=== PATIENT | male | born 1950 | race Two or more races ===

== ENCOUNTER 2021-04-21 12:52 | Inpatient (IN) | payer MEDICARE, SELFPAY ==
[2021-04-21] VITALS (7 sets, daily range): BP systolic 116–159; BP diastolic 72–96; PULSE 84–109; RESP 14–19; TEMP 36.4–36.9; O2SAT 94–96; BMI 31.1
--- NOTE | ~2021-04-21 | CT_ITS ---
EXAMINATION: CT ANGIOGRAM HEAD CT ANGIOGRAM NECK CLINICAL INFORMATION: Left arm/leg weakness. COMPARISON: CTA neck from 02/03/2015. TECHNIQUE: Initial noncontrast pensionholder information clerk imaging of the head and neck was performed. Noncontrast head CT was also performed. Test bolus sequences followed by intravenous administration 99 mL of Omnipaque 350. Helical imaging was performed in the axial plane from the aortic arch to the skull vertex. Delayed postcontrast imaging of the head was also performed. The data was processed at the x ray technologist's workstation for generation of MIP sequences. Angled MIPs and volume rendered reformatted images were also generated at an offline 3D workstation. Stenoses are assessed in accordance with NASCET criteria unless otherwise indicated. This CT examination was performed using dose optimization techniques as appropriate, variously including the following: *Automated exposure control. *Adjustment of mA and/or kV according to patient size (this includes techniques or standardized protocols for targeted exams where dose is matched to indication/reason for exam; i.e. extremities or head). *Use of iterative reconstruction technique. DLP: 2672 mGy-cm FINDINGS: CT Head: There is no evidence of acute intracranial hemorrhage. There are regions of chronic appearing encephalomalacia in the high left frontal and parietal lobes with apparent volume loss. There are also regions of encephalomalacia within the high right frontal and parietal lobes with left apparent volume loss. Findings are superimposed on scattered hypoattenuation in the periventricular and deep white matter are consistent with moderate microangiopathy. Proportional prominence of the ventricles and sulcal spaces. No evidence for obstructive hydrocephalus. No abnormal mass effect or midline shift. No extra-axial fluid collections. No pathologic intra-axial enhancement. No acute soft tissue or osseous abnormalities. Mild mucosal thickening of the paranasal sinuses. Moderate leftward nasal septal deviation. The mastoid air cells and middle ear cavities are clear. CT Neck: The thyroid gland and remaining cervical soft tissues are within normal limits. Straightening of the normal cervical lordosis. Advanced degenerative disc disease at C5-C6. Moderate degenerative disc disease at C4-C5 and C6-C7. Facet and uncovertebral joint arthropathy leads to osseous encroachment on the neural foramina from C3-C7. CT Upper Chest: Centrilobular emphysema. Coronary artery calcifications. Neck CTA: Aortic Arch: Normal contour and caliber with moderate calcific atherosclerotic disease. Classic 3 vessel branching pattern of the aortic arch. Great Vessel Origins: No significant stenosis of the branch origins. Right Common Carotid Artery: No focal stenosis or occlusion. Cervical Right Internal Carotid Artery: Eccentric mixed lipid rich and calcific atherosclerotic disease of the carotid bulb and proximal internal carotid artery causes 55% stenosis of the origin of the right ICA (progressed compared to 2015). Left Common Carotid Artery: No focal stenosis or occlusion. Cervical Left Internal Carotid Artery: Mixed lipid rich and calcific atherosclerotic disease leads to complete occlusion of the origin of the left ICA. Cervical Right Vertebral Artery: Co-dominant. No focal stenosis or occlusion. Cervical Left Vertebral Artery: Co-dominant. No focal stenosis or occlusion. Brain CTA: Intracranial Internal Carotid Arteries: The petrous, cavernous, and supraclinoid segments of the left ICA remain nonopacified. There is partial reconstitution of the supraclinoid segment of the left ICA with retrograde opacification of the left-sided ophthalmic artery. Moderate calcific atherosclerotic disease of the right ICA without occlusion or flow-limiting stenosis. Right Anterior Cerebral Artery: Normal A1 segment. Normal opacification of the distal RENA segments. Left Anterior Cerebral Artery: Normal A1 segment. Normal opacification of the distal RENA segments. Anterior Communicating Artery: Osseous continuation of the anterior communicating artery. Otherwise, normal in appearance. Right Middle Cerebral Artery: Normal M1 segment of the MCA without focal stenosis or occlusion. Normal arborization of the distal segments. Left Middle Cerebral Artery: Normal M1 segment of the MCA without focal stenosis or occlusion. Normal arborization of the distal segments. Right Vertebral Artery: Normal V4 segment. The posterior inferior cerebellar artery is not well opacified; however, there is no CT evidence of acute occlusion. Left Vertebral Artery: Normal V4 segment. Normal opacification of the proximal segments of the posterior inferior cerebellar artery. Basilar Artery: Normal without focal stenosis or occlusion. Normal appearance of the proximal superior cerebellar arteries. Right Posterior Cerebral Artery: Normal P1 segment. Normal opacification of the distal [employer] segments. Left Posterior Cerebral Artery: Normal P1 segment. Normal opacification of the distal [employer] segments. Normal opacification of the superior sagittal, straight, transverse, and sigmoid sinuses. CT/CT angio head neck IMPRESSION: 1. No evidence of acute intracranial hemorrhage. 2. Age-indeterminate small regions of encephalomalacia in the high right frontal and parietal lobes. Chronic appearing regions of encephalomalacia in the left frontal and parietal lobes. 3. Complete occlusion of a right ICA is new compared to 2015 but otherwise age indeterminate. 4. Eccentric mixed lipid rich and calcific atherosclerotic disease causes 55% stenosis of the origin of the left ICA. 5. CTA of the head without evidence of additional proximal occlusion or flow-limiting stenosis. This critical result was discussed with JACQUIE Ramires at 16:49 on 04/21/2021 and it was ascertained that the content and urgency of the report was understood at the time of direct communication.
--- NOTE | ~2021-04-21 | CT_ITS ---
EXAMINATION: CT HEAD WITHOUT CONTRAST CLINICAL INFORMATION: COMPARISON: None TECHNIQUE: Contiguous axial imaging was performed from the skull base to vertex without intravenous administration of contrast. This CT examination was performed using dose optimization techniques as appropriate, variously including the following: *Automated exposure control *Adjustment of mA and/or kV according to patient size (this includes techniques or standardized protocols for targeted exams where dose is matched to indication/reason for exam; i.e. extremities or head) *Use of iterative reconstruction technique DLP: mGy-cm FINDINGS: There is no evidence of acute intracranial hemorrhage or territorial infarction. No abnormal mass effect or midline shift is seen. Rothman to white matter differentiation is well preserved. No extra-axial fluid collections are identified. The ventricles are normal in size. There is no abnormal attenuation within the brain parenchyma. The osseous structures and soft tissues are normal. The mastoid air cells and visualized portions of the paranasal sinuses are well aerated. CT/CT head/brain wo con IMPRESSION: No acute intracranial pathology.
[2021-04-21 13:08] LABS: Glucose, Whole Blood 146 mg/dL (60-115)
--- NOTE | 2021-04-21 13:17 | PC.NURSE ---
pt a&ox3, vss, cardiac cath technician applied, labs drawn, [facility] in room w provider. pt reports possible stroke last night between [id number], tremors, difficulty walking, now presenting with left sided weakness and some numbness in his left hand.
--- NOTE | 2021-04-21 13:25 | ECG_ITS ---
Test Reason : stroke Blood Pressure : / mmHG Vent. Rate : 109 BPM Atrial Rate : 109 BPM P-R Int : 172 ms QRS Dur : 090 ms QT Int : 324 ms P-R-T Axes : 036 -50 032 degrees QTc Int : 436 ms Sinus tachycardia Left anterior fascicular block Cannot rule out Inferior infarct (masked by fascicular block?) , age undetermined Abnormal ECG No previous ECGs available Referred By: Vanessa Juarez Electronically Signed By:Jose Enrique Izquierdo
--- NOTE | 2021-04-21 13:36 | ED_ITS ---
HPI - Neuro Symptoms/Deficit General Chief Complaint: Stroke Stated Complaint: ?stroke Time Seen by Provider: 04/21/21 12:59 Source: patient and park interpreter Mode of arrival: ambulatory Limitations: language barrier History of Present Illness HPI Narrative: 71yo male with history of retinal artery occlusion 4 years ago not compliant with aspirin (w/ residual visual loss) here with complaints of left sided weakness, difficulty with ambulating since 10pm last night. Patient tells me last evening he was laying in bed around 10pm and felt that his right arm moved involuntary on 4 different occasions each lasting several seconds in a 5 minute span. He got up to take tylenol and when he was walking he noticed his gait was unsteady and he felt that his left arm was heavy especially when he reached for a tylenol bottle. In his left hand he was experiencing tingling. he went to bed. This morning he woke up and was speaking to a friend and told them about his symptoms since the evening before. His friend picked him up and brought him in here to be seen. Patient denies falls/injuries. Patient denies headache, dizziness, slurred speech, vision changes, vomiting. Today he feels that his right arm is normal and his left arm feels heavy and he has some tingling in the hand. His left leg feels normal for him with no reports of sensation change. Related Data Home Medications Medication Instructions Recorded Confirmed No Known Home Meds 04/21/21 04/21/21 Allergies Allergy/AdvReac Type Severity Reaction Status Date / Time No Known Allergies Allergy Verified 04/21/21 12:59 Review of Systems Review of Systems: Yes all other systems are reviewed and are negative Constitutional: Constitutional: Reports no additional constitutional complaints, Denies body ache(s), Denies chills, Denies fever(s), Denies headache(s) and Reports weakness Eyes: Eyes: Reports no additional eye complaints and Denies change in vision ENT: Reports system reviewed and no additional complaints, except as docu mented, Denies dizziness, Denies headache(s), Denies nasal congestion, Denies nasal discharge and Denies neck pain Cardiovascular: Cardiovascular: Reports no additional cardiovascular complaints, Denies chest pain, Denies leg edema and Denies dyspnea Respiratory: Respiratory: Reports no additional respiratory complaints, Denies cough and Denies dyspnea Gastrointestinal: Gastrointestinal: Reports no additional gastrointestinal complaints, Denies abdominal pain, Denies diarrhea, Denies nausea and Denies vomiting Genitourinary: Genitourinary: Denies urinary incontinence Musculoskeletal: Musculoskeletal: Reports no additional musculoskeletal complaints, Denies back pain, Denies arthralgias, Denies joint swelling, Denies neck pain, Denies numbness and Denies tingling Integumentary/Breasts: Skin/Breast: Reports system reviewed and no additional complaints, except as docu and Denies rash Neurologic: Reports system reviewed and no additional complaints, except as documented, Denies Abnormal speech present, Denies dizziness, Denies headach e(s), Denies numbness, Reports Sensory deficit (Neuro), Denies tingling and Reports weakness PMFSH Past Medical History Attestation statement: The following information was validated with the patient. Source: old records reviewed and nursing notes reviewed Medical History Retinal artery branch occlusion of right eye Social History Social History Alcohol intake: current Alcohol intake frequency: 0-2 drinks per day Alcohol type: wine Patient Tobacco Use Status: Never used Tobacco Use of substances other than those prescribed or required for medical reasons: No Advance Directives: No Advance Directives Information Provided: No Physical Exam Vital Signs: Vital Signs: Last Vital Signs Temp 97.5 F 04/21/21 13:34 Pulse 109 H 04/21/21 13:34 Resp 15 04/21/21 13:34 BP 123/78 04/21/21 13:34 Pulse Ox 94 04/21/21 13:34 BMI result Body Mass Index 31.1 Const: General: cooperative, healthy appearing, comfortable and no acute distr ess Orientation/consciousness: patient oriented x3 Limitations: no limitations HENMT: Head: Yes normal to inspection Ears: hearing grossly normal bilaterally and TM's normal bilaterally General nose exam: Normal external nose present Face and sinus: Yes normal facial exam Mouth: Normal oral and palatal mucosa present Throat: Yes posterior oropharynx normal, Yes tonsils normal and Yes uvula midline Eyes: General: appearance normal, both eyes and all related structures Pupils: Equal, round and reactive pupils present Neck: Neck: Yes normal visual inspection, Yes full ROM, Yes no lymphadenopathy and Yes no meningeal signs Chest: Chest palpation & inspection: normal inspection of the chest Resp: Effort & Inspection: normal respiratory effort Auscultation: clear to auscultation bilaterally Cardio: Rate: regular rate Rhythm: regular rhythm Peripheral pulses: Peripheral pulses 2+ throughout GI: Inspection: Yes normal to inspection Palpation (GI): Soft to palpation and nontender Auscultation: normal bowel sounds Back/Spine/Pelvis: Thoracic/Lumbar Spine: thoracic and lumbar spine normal to inspection Skin: General skin exam: no rashes or lesions noted Neuro: Other: LLE 3/5 strength LLE 4/5 strength RUE 5/5 strength RLE 5/5 strength -patient has difficulty performing finger to nose, heel to zhang testing on left side. General: patient oriented x3, no meningeal signs and normal sensation to monofilament Cranial nerves: Yes CN's II-XII intact bilaterally, Yes Equal, round and reactive pupils present, Yes Bilaterally intact EOM present, Yes Nystagmus not present, Yes Normal facial strength present and Yes Midline tongue present Cognition (Neuro): normal cognition Speech: No Abnormal speech present Sensory Exam: Sensory deficit (Neuro) Extrem: General: Yes normal to inspection Course Course Course Narrative: [id number] I was at the patient bedside interviewing him with the [place] drea juan. He is not a good historian and his timeline changes several times. I explained to the patient that obtaining a clear timeline with stroke is critical as it determines when TPA is an option. Patient assures me all his symptoms began at 10pm last evening. Reevaluation(s) Reevaluation #1: Call from [facility] L ICA occluded but appears chronic in nature R ICA 55-60% occluded with ?infarcts in R frontal and R parietal acute vs subacute Will need admission. Call out to discuss with vascular. Time: 16:50 Reevaluation #2: discussed with Dr. Monique from vascular. recommended dual platelet agent. at this time no further intervention. Call out to Medicine to discuss for admission Time: 17:15 Reevaluation #3: discussed with Dr Bonilla who accepted patient Time: 17:54 MDM - Neuro Symptoms/Deficit MDM Narrative Medical decision making narrative: 71yo male with new onset left sided weakness sensation change left hand since 10pm last evening. NIH 4. Not TPA candidate d/t onset of symptoms. Will check CT head, CTA to r/o LVO, labs, EKG, POC. Stroke cooridinator notified. ASA ordered. Medical Records Attestation: I reviewed the patient's medical records. Lab Data Attestation: I reviewed the patient's lab results. Result diagrams: 04/21/21 13:32 04/21/21 13:32 Labs: Lab Results 04/21/21 04/21/21 04/21/21 Range/Units 13:04 13:32 13:32 WBC 8.2 (4.8-10.8) X10*3/uL RBC 5.52 (4.60-5.80) X10*6/uL Hgb 16.8 (14.0-18.0) g/dl Hct 49.6 (42.0-52.0) % MCV 89.9 (80.0-98.0) fL MCH 30.4 (27.0-33.0) pg MCHC 33.9 (31.0-36.0) g/dl RDW 11.9 (11.0-16.0) % Plt Count 192 (160-400) X10*3/uL MPV 10.5 (9.4-12.4) fL Immature Gran % (Auto) 0.2 (0.0-0.4) % Neut % (Auto) 69.2 (45-73) % Lymph % (Auto) 22.0 (20-40) % Williams % (Auto) 7.5 (2-11) % Eos % (Auto) 1.0 (0-4) % Baso % (Auto) 0.1 (0-2) % Lymph # (Auto) 1.8 (1.2-4.9) X10*3/uL Williams # (Auto) 0.6 (0.1-1.2) X10*3/uL Eos # (Auto) 0.1 (0.0-0.4) X10*3/uL Baso # (Auto) 0.0 (0.0-0.2) X10*3/uL Abs Immat Gran (auto) 0.02 (0.00-0.03) X10*3/uL Absolute Neuts (auto) 5.7 (2.0-8.3) x10*3/uL Absolute Nucleated RBC 0.000 (0.0-0.012) X10*3/uL Nucleated RBC % (auto) 0.0 (0.0-0.2) /100WBC PT 11.4 (9.9-13.0) SEC INR 1.0 (0.9-1.1) APTT 33.5 (24.1-38.0) SEC Sodium (135-145) mmol/L Potassium (3.3-5.1) mmol/L Chloride (96-108) mmol/L Carbon Dioxide (22-29) mmol/L Anion Gap (12-20) BUN (9-16) mg/dL Creatinine (0.5-1.4) mg/dL Estim Creat Clear Calc Estimated GFR POC Glucose 146 H (60-115) mg/dL Random Glucose (60-115) mg/dL Calcium (8.4-10.2) mg/dL Phosphorus (2.7-4.5) mg/dL Magnesium (1.6-2.6) mg/dL Total Creatine Kinase (38-174) U/L Troponin I High Sens (<3.5-35.0) ng/L TSH (0.32-4.0) uIU/mL Urine Color Urine Appearance Urine pH (5.0-8.0) Ur Specific [place] (1.005-1.025) Urine Protein (NEG-TRACE) MG/DL Urine Glucose (UA) (NEG) MG/DL Urine Ketones (NEG) MG/DL Urine Blood (NEG) Urine Nitrite (NEG) Ur Leukocyte Esterase (NEG) Ethyl Alcohol mg/dL COVID-19 (CATHIE) (Negative) COVID-19 Clin Com 04/21/21 04/21/21 04/21/21 Range/Units 13:32 13:32 13:32 WBC (4.8-10.8) X10*3/uL RBC (4.60-5.80) X10*6/uL Hgb (14.0-18.0) g/dl Hct (42.0-52.0) % MCV (80.0-98.0) fL MCH (27.0-33.0) pg MCHC (31.0-36.0) g/dl RDW (11.0-16.0) % Plt Count (160-400) X10*3/uL MPV (9.4-12.4) fL Immature Gran % (Auto) (0.0-0.4) % Neut % (Auto) (45-73) % Lymph % (Auto) (20-40) % Williams % (Auto) (2-11) % Eos % (Auto) (0-4) % Baso % (Auto) (0-2) % Lymph # (Auto) (1.2-4.9) X10*3/uL Williams # (Auto) (0.1-1.2) X10*3/uL Eos # (Auto) (0.0-0.4) X10*3/uL Baso # (Auto) (0.0-0.2) X10*3/uL Abs Immat Gran (auto) (0.00-0.03) X10*3/uL Absolute Neuts (auto) (2.0-8.3) x10*3/uL Absolute Nucleated RBC (0.0-0.012) X10*3/uL Nucleated RBC % (auto) (0.0-0.2) /100WBC PT (9.9-13.0) SEC INR (0.9-1.1) APTT (24.1-38.0) SEC Sodium 140 (135-145) mmol/L Potassium 3.9 (3.3-5.1) mmol/L Chloride 105 (96-108) mmol/L Carbon Dioxide 25 (22-29) mmol/L Anion Gap 14 (12-20) BUN 16 (9-16) mg/dL Creatinine 0.87 (0.5-1.4) mg/dL Estim Creat Clear Calc 90.1 Estimated GFR > 60 POC Glucose (60-115) mg/dL Random Glucose 141 H (60-115) mg/dL Calcium 9.8 (8.4-10.2) mg/dL Phosphorus 3.4 (2.7-4.5) mg/dL Magnesium 1.9 (1.6-2.6) mg/dL Total Creatine Kinase 184 H (38-174) U/L Troponin I High Sens < 3.5 (<3.5-35.0) ng/L TSH 1.13 (0.32-4.0) uIU/mL Urine Color Urine Appearance Urine pH (5.0-8.0) Ur Specific [place] (1.005-1.025) Urine Protein (NEG-TRACE) MG/DL Urine Glucose (UA) (NEG) MG/DL Urine Ketones (NEG) MG/DL Urine Blood (NEG) Urine Nitrite (NEG) Ur Leukocyte Esterase (NEG) Ethyl Alcohol mg/dL COVID-19 (CATHIE) Negative (Negative) COVID-19 Clin Com See Note 04/21/21 04/21/21 Range/Units 13:48 14:38 WBC (4.8-10.8) X10*3/uL RBC (4.60-5.80) X10*6/uL Hgb (14.0-18.0) g/dl Hct (42.0-52.0) % MCV (80.0-98.0) fL MCH (27.0-33.0) pg MCHC (31.0-36.0) g/dl RDW (11.0-16.0) % Plt Count (160-400) X10*3/uL MPV (9.4-12.4) fL Immature Gran % (Auto) (0.0-0.4) % Neut % (Auto) (45-73) % Lymph % (Auto) (20-40) % Williams % (Auto) (2-11) % Eos % (Auto) (0-4) % Baso % (Auto) (0-2) % Lymph # (Auto) (1.2-4.9) X10*3/uL Williams # (Auto) (0.1-1.2) X10*3/uL Eos # (Auto) (0.0-0.4) X10*3/uL Baso # (Auto) (0.0-0.2) X10*3/uL Abs Immat Gran (auto) (0.00-0.03) X10*3/uL Absolute Neuts (auto) (2.0-8.3) x10*3/uL Absolute Nucleated RBC (0.0-0.012) X10*3/uL Nucleated RBC % (auto) (0.0-0.2) /100WBC PT (9.9-13.0) SEC INR (0.9-1.1) APTT (24.1-38.0) SEC Sodium (135-145) mmol/L Potassium (3.3-5.1) mmol/L Chloride (96-108) mmol/L Carbon Dioxide (22-29) mmol/L Anion Gap (12-20) BUN (9-16) mg/dL Creatinine (0.5-1.4) mg/dL Estim Creat Clear Calc Estimated GFR POC Glucose (60-115) mg/dL Random Glucose (60-115) mg/dL Calcium (8.4-10.2) mg/dL Phosphorus (2.7-4.5) mg/dL Magnesium (1.6-2.6) mg/dL Total Creatine Kinase (38-174) U/L Troponin I High Sens (<3.5-35.0) ng/L TSH (0.32-4.0) uIU/mL Urine Color YELLOW Urine Appearance CLEAR Urine pH 6.0 (5.0-8.0) Ur Specific [place] 1.010 (1.005-1.025) Urine Protein NEG (NEG-TRACE) MG/DL Urine Glucose (UA) NEG (NEG) MG/DL Urine Ketones NEG (NEG) MG/DL Urine Blood NEG (NEG) Urine Nitrite NEG (NEG) Ur Leukocyte Esterase NEG (NEG) Ethyl Alcohol < 10 mg/dL COVID-19 (CATHIE) (Negative) COVID-19 Clin Com Imaging Data ct head/neck: Attestation: I personally reviewed and interpreted this imaging study as follows: Radiologist's impression: FINDINGS: CT Head: There is no evidence of acute intracranial hemorrhage. There are regions of chronic appearing encephalomalacia in the high left frontal and parietal lobes with apparent volume loss. There are also regions of encephalomalacia within the high right frontal and parietal lobes with left apparent volume loss. Findings are superimposed on scattered hypoattenuation in the periventricular and deep white matter are consistent with moderate microangiopathy. Proportional prominence of the ventricles and sulcal spaces. No evidence for obstructive hydrocephalus. No abnormal mass effect or midline shift. No extra-axial fluid collections. No pathologic intra-axial enhancement. No acute soft tissue or osseous abnormalities. Mild mucosal thickening of the paranasal sinuses. Moderate leftward nasal septal deviation. The mastoid air cells and middle ear cavities are clear. CT Neck: The thyroid gland and remaining cervical soft tissues are within normal limits. Straightening of the normal cervical lordosis. Advanced degenerative disc disease at C5-C6. Moderate degenerative disc disease at C4-C5 and C6-C7. Facet and uncovertebral joint arthropathy leads to osseous encroachment on the neural foramina from C3-C7. CT Upper Chest: Centrilobular emphysema. Coronary artery calcifications. Neck CTA: Aortic Arch: Normal contour and caliber with moderate calcific atherosclerotic disease. Classic 3 vessel branching pattern of the aortic arch. Great Vessel Origins: No significant stenosis of the branch origins. Right Common Carotid Artery: No focal stenosis or occlusion. Cervical Right Internal Carotid Artery: Eccentric mixed lipid rich and calcific atherosclerotic disease of the carotid bulb and proximal internal carotid artery causes 55% stenosis of the origin of the right ICA (progressed compared to 2015). Left Common Carotid Artery: No focal stenosis or occlusion. Cervical Left Internal Carotid Artery: Mixed lipid rich and calcific atherosclerotic disease leads to complete occlusion of the origin of the left ICA. Cervical Right Vertebral Artery: Co-dominant. No focal stenosis or occlusion. Cervical Left Vertebral Artery: Co-dominant. No focal stenosis or occlusion. Brain CTA: Intracranial Internal Carotid Arteries: The petrous, cavernous, and supraclinoid segments of the left ICA remain nonopacified. There is partial reconstitution of the supraclinoid segment of the left ICA with retrograde opacification of the left-sided ophthalmic artery. Moderate calcific atherosclerotic disease of the right ICA without occlusion or flow-limiting stenosis. Right Anterior Cerebral Artery: Normal A1 segment. Normal opacification of the distal RENA segments. Left Anterior Cerebral Artery: Normal A1 segment. Normal opacification of the distal RENA segments. Anterior Communicating Artery: Osseous continuation of the anterior communicating artery. Otherwise, normal in appearance. Right Middle Cerebral Artery: Normal M1 segment of the MCA without focal stenosis or occlusion. Normal arborization of the distal segments. Left Middle Cerebral Artery: Normal M1 segment of the MCA without focal stenosis or occlusion. Normal arborization of the distal segments. Right Vertebral Artery: Normal V4 segment. The posterior inferior cerebellar artery is not well opacified; however, there is no CT evidence of acute occlusion. Left Vertebral Artery: Normal V4 segment. Normal opacification of the proximal segments of the posterior inferior cerebellar artery. Basilar Artery: Normal without focal stenosis or occlusion. Normal appearance of the proximal superior cerebellar arteries. Right Posterior Cerebral Artery: Normal P1 segment. Normal opacification of the distal CHIEF MAINTENANCE SUPERVISOR segments. Left Posterior Cerebral Artery: Normal P1 segment. Normal opacification of the distal CHIEF MAINTENANCE SUPERVISOR segments. Normal opacification of the superior sagittal, straight, transverse, and sigmoid sinuses. ECG Data Attestation: I personally reviewed and interpreted this ECG as follows: ECG interpretation date: 04/21/21 ECG interpretation time: 13:09 Interpretation: sinus tachycardia with a rate of 109, normal ND, normal QRS, normal QT NIH Stroke Scale Internal: Initial- Upon Arrival Time: 12:59 Level of Consciousness: Alert Level of Consciousness Questions: Answers both questions correctly Level of Consciousness Commands: Performs both tasks correctly Best Gaze: Normal Visual: No visual loss Facial Palsy: Normal Motor Arm (Right): No drift Motor Arm (Left): Drift Motor Leg (Right): No drift Motor Leg (Left): Drift Limb Ataxia: Present in one limb Sensory: Mild to moderate sensory loss Best Language: No aphasia Dysarthia: Normal Extinction and Inattention: No abnormality Score: 4 Discharge Plan Discharge Clinical Impression: Cerebrovascular accident Patient Disposition: Admitted As Inpatient
[2021-04-21 13:53] LABS: MANUAL DIFF FLAG NO
[2021-04-21 13:56] LABS: Basophils Percent Auto 0.1 % (0-2); Eosinophils Absolute Auto 0.1 X10*3/uL (0.0-0.4); Hematocrit 49.6 % (42.0-52.0); Hemoglobin 16.8 g/dl (14.0-18.0); Imm Gran Abs Auto 0.02 X10*3/uL (0.00-0.03); Imm Gran Pct Auto 0.2 % (0.0-0.4); Lymphocytes Absolute Auto 1.8 X10*3/uL (1.2-4.9); Mean Corpuscular HGB Conc 33.9 g/dl (31.0-36.0); Mean Corpuscular Hemoglobin 30.4 pg (27.0-33.0); Mean Corpuscular Volume 89.9 fL (80.0-98.0); Mean Platelet Volume 10.5 fL (9.4-12.4); Monocytes Absolute Auto 0.6 X10*3/uL (0.1-1.2); Monocytes Percent Auto 7.5 % (2-11); Neutrophils Absolute Auto 5.7 x10*3/uL (2.0-8.3); Neutrophils Percent Auto 69.2 % (45-73); Platelet Count 192 X10*3/uL (160-400); Red Blood Count 5.52 X10*6/uL (4.60-5.80); Red Cell Distribution Width 11.9 % (11.0-16.0); White Blood Count 8.2 X10*3/uL (4.8-10.8)
[2021-04-21 14:01] LABS: Prothrombin Time 11.4 SEC (9.9-13.0)
[2021-04-21 14:03] LABS: Partial Thromboplastin Time 33.5 SEC (24.1-38.0)
[2021-04-21 14:13] LABS: Anion Gap 14 (12-20); Blood Urea Nitrogen 16 mg/dL (9-16); Calcium 9.8 mg/dL (8.4-10.2); Carbon Dioxide 25 mmol/L (22-29); Chloride 105 mmol/L (96-108); Creatinine Clr Calc Pharmacy 90.1; Estimated Glomerular Filt Rate > 60; Glucose Random 141 mg/dL (60-115); Magnesium 1.9 mg/dL (1.6-2.6); Phosphorus 3.4 mg/dL (2.7-4.5); Potassium 3.9 mmol/L (3.3-5.1); Sodium 140 mmol/L (135-145)
[2021-04-21 14:16] LABS: COVID-19 Test Negative (Negative); IDNOW Serial# 9DD0AD1C
[2021-04-21 14:17] LABS: Ethanol < 10 mg/dL
[2021-04-21 14:20] LABS: Troponin-I High Sensitivity < 3.5 ng/L (<3.5-35.0)
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
[2021-04-21 14:34] LABS: Thyroid Stimulating Hormone 1.13 uIU/mL (0.32-4.0)
[2021-04-21 14:38] LABS: Stroke Lab Use COMPLETE
--- NOTE | 2021-04-21 14:45 | PC.NURSE ---
pt passed swallow eval
[2021-04-21 14:47] LABS: Appearance Urine CLEAR; Color Urine YELLOW; Glucose Urine UA NEG (NEG); Leukocyte Esterase Urine NEG (NEG); Nitrite Urine NEG (NEG); Urine Blood NEG (NEG); Urine Ketones NEG (NEG); Urine Protein NEG (NEG-TRACE)
--- NOTE | 2021-04-21 15:15 | PC.NURSE ---
pt to radiology
--- NOTE | 2021-04-21 15:41 | PC.NURSE ---
pt returned from radiology
[2021-04-21] MEDS: iohexoL 350 MG/ML 100 ML INFUS..BTL IV (15:52)
--- NOTE | 2021-04-21 16:21 | PHA.MEDREC ---
Pharmacy Consult ? Medication Reconciliation Pharmacy has completed the medication reconciliation.
[2021-04-21] MEDS: Aspirin 325 MG TABLET PO (18:07)
--- NOTE | 2021-04-21 18:12 | PC.NURSE ---
patient a&ox3, vss, cardiac monitor technician nsr, hospitalist in room evaluating the patient, during providers neuro exam it was noted that the left upper arm drift had resolved as did the weakness, pt medicated per order, call obrien within reach, will continue to monitor
--- NOTE | 2021-04-21 18:19 | P.HPHOSP_ITS ---
History of Present Illness Date of Service: 04/21/21 Attending physician on admission: Lito Bonilla Chief Complaint: left-sided weakness 71-year-old gentleman with past medical history significant for right retinal artery occlusion 4 years ago not compliant with aspirin, presented to [facility] due to left-sided weakness since 22:00 last night, patient is awake historian but according to him last evening while in bed at 10pm he noted his right arm is moving involuntarily that occurred 3-4 times, then he got up and noted that his gait is unsteady and he felt that his left arm is heavy and tingling while he was reaching for a Tylenol bottle, then he went to bed and woke up this morning call his friend and told him about his symptoms, therefore friend brought him to [facility] patient also complained of associated headache, but denies any recent bout of fall head injuries, no fever no chills no speech impairment no patient impairment no nausea no vomiting, in the emergency room he was noted to have left arm pronator drift and decreased left lower extremity strength therefore CT head and neck was obtained that showed left ICA complete occlusion, right ICA 55% stenosis there was encephalomalacia age indeterminate of right frontal and parietal lobe, chronic encephalomalacia of left frontal and parietal lobe, patient received aspirin in the ED, he passed swallow eval now being admitted to [facility] with left-sided weakness due to acute CVA. Review of Systems Review of Systems: General headache, no dizziness no fever chills. CVS no chest pain, no palpitation. Respiratory no cough, no shortness of breath Gastrointestinal no nausea no vomiting, no abdominal pain skin no rash Yes all other systems are reviewed and are negative [facility] Medical History Retinal artery branch occlusion of right eye Pertinent family history: no family history of acute CVA Social History Alcohol intake: current Alcohol intake frequency: 0-2 drinks per day Alcohol type: wine Patient Tobacco Use Status: Never used Tobacco Use of substances other than those prescribed or required for medical reasons: No Advance Directives: No Advance Directives Information Provided: No Meds Allergies Allergy/AdvReac Type Severity Reaction Status Date / Time No Known Allergies Allergy Verified 04/21/21 12:59 Active Medications: Current Medications Acetaminophen (Acetaminophen 325 Mg Tablet) 650 mg PO Q6H PRN PRN Reason: Pain, Mild (Pain Scale 1-3) Enoxaparin Sodium (Enoxaparin Sodium 40 Mg/0.4 Ml Syringe) 40 mg SUBCUT Q24H [facility] Ondansetron HCl (Ondansetron Hcl 4 Mg/2 Ml Vial) 4 mg IVPUSH Q8H PRN PRN Reason: Nausea and Vomiting Pharmacy Consult (Consult Rx Perform Med Rec) 1 each MISCELLANE ONCE PRN PRN Reason: Consult order Sodium Chloride (0.9 % Sodium Chloride Flush 3 Ml Syringe) 3 ml IVFLUSH QSHIFT [facility] Home Medications Medication Instructions Recorded Confirmed Last Taken Type No Known Home Meds 04/21/21 04/21/21 Unknown History Physical Exam Vital Signs and Narrative: Vital Signs: Last Vital Signs Temp 98.5 F 04/21/21 18:00 Pulse 85 04/21/21 18:00 Resp 18 04/21/21 18:00 BP 140/95 H 04/21/21 18:00 Pulse Ox 95 04/21/21 18:00 BMI result Body Mass Index 31.1 Const: Other: General awake alert x3, no acute distress. Neck supple no JVD. CVS regular rate rhythm, Respiratory lungs clear to auscultation, no respiratory distress Gastrointestinal abdomen soft, nontender, bowel sounds audible Extremities no edema. Neuro alert oriented x3 speech clear, face symmetrical, tongue midline, mild left pronator drift mild left-sided upper and lower extremity weakness 4/5, gait not assessed Skin no rash psych appropriate affect Results Labs CBC and Chem 7: 04/21/21 13:32 04/21/21 13:32 Labs: Laboratory Results - last 24 hr 04/21/21 04/21/21 04/21/21 13:04 13:32 13:32 MCV 89.9 MCH 30.4 MCHC 33.9 RDW 11.9 Plt Count 192 MPV 10.5 Immature Gran % (Auto) 0.2 Neut % (Auto) 69.2 Lymph % (Auto) 22.0 [place] % (Auto) 7.5 Eos % (Auto) 1.0 Baso % (Auto) 0.1 Lymph # (Auto) 1.8 [place] # (Auto) 0.6 Eos # (Auto) 0.1 Baso # (Auto) 0.0 Abs Immat Gran (auto) 0.02 Absolute Neuts (auto) 5.7 Absolute Nucleated RBC 0.000 Nucleated RBC % (auto) 0.0 PT 11.4 INR 1.0 APTT 33.5 Anion Gap Estim Creat Clear Calc Estimated GFR POC Glucose 146 H Random Glucose Calcium Phosphorus Magnesium Total Creatine Kinase TSH Urine Color Urine Appearance Urine pH Ur Specific [place] Urine Protein Urine Glucose (UA) Urine Ketones Urine Blood Urine Nitrite Ur Leukocyte Esterase Ethyl Alcohol COVID-19 (CATHIE) COVID-19 Clin Com 04/21/21 04/21/21 04/21/21 13:32 13:32 13:48 MCV MCH MCHC RDW Plt Count MPV Immature Gran % (Auto) Neut % (Auto) Lymph % (Auto) [place] % (Auto) Eos % (Auto) Baso % (Auto) Lymph # (Auto) [place] # (Auto) Eos # (Auto) Baso # (Auto) Abs Immat Gran (auto) Absolute Neuts (auto) Absolute Nucleated RBC Nucleated RBC % (auto) PT INR APTT Anion Gap 14 Estim Creat Clear Calc 90.1 Estimated GFR > 60 POC Glucose Random Glucose 141 H Calcium 9.8 Phosphorus 3.4 Magnesium 1.9 Total Creatine Kinase 184 H TSH 1.13 Urine Color Urine Appearance Urine pH Ur Specific [place] Urine Protein Urine Glucose (UA) Urine Ketones Urine Blood Urine Nitrite Ur Leukocyte Esterase Ethyl Alcohol < 10 COVID-19 (CATHIE) Negative COVID-19 Clin Com See Note 04/21/21 14:38 MCV MCH MCHC RDW Plt Count MPV Immature Gran % (Auto) Neut % (Auto) Lymph % (Auto) [place] % (Auto) Eos % (Auto) Baso % (Auto) Lymph # (Auto) [place] # (Auto) Eos # (Auto) Baso # (Auto) Abs Immat Gran (auto) Absolute Neuts (auto) Absolute Nucleated RBC Nucleated RBC % (auto) PT INR APTT Anion Gap Estim Creat Clear Calc Estimated GFR POC Glucose Random Glucose Calcium Phosphorus Magnesium Total Creatine Kinase TSH Urine Color YELLOW Urine Appearance CLEAR Urine pH 6.0 Ur Specific [place] 1.010 Urine Protein NEG Urine Glucose (UA) NEG Urine Ketones NEG Urine Blood NEG Urine Nitrite NEG Ur Leukocyte Esterase NEG Ethyl Alcohol COVID-19 (CATHIE) COVID-19 Clin Com Imaging Radiologist's Impressions: Impressions Head/Neck CTA 04/21/21 15:55 IMPRESSION: 1. No evidence of acute intracranial hemorrhage. 2. Age-indeterminate small regions of encephalomalacia in the high right frontal and parietal lobes. Chronic appearing regions of encephalomalacia in the left frontal and parietal lobes. 3. Complete occlusion of a right ICA is new compared to 2015 but otherwise age indeterminate. 4. Eccentric mixed lipid rich and calcific atherosclerotic disease causes 55% stenosis of the origin of the left ICA. 5. CTA of the head without evidence of additional proximal occlusion or flow-limiting stenosis. This critical result was discussed with JACQUIE Ramires at 16:49 on 04/21/2021 and it was ascertained that the content and urgency of the report was understood at the time of direct communication. Assessment and Plan (1) Cerebrovascular accident: Status: Acute Plan 71-year-old gentleman with past medical history significant for right retinal artery occlusion not on home medications , no prior history of hypertension, hyperlipidemia, no history of smoking,presented to [facility] with left- sided weakness unsteady gait, CT head and neck suggestive of prior stroke, complete occlusion of left ICA, and 55% stenosis of right ICA patient will be admitted to medical floor for continued monitoring and treatment acute CVA with left-sided weakness likely due to carotid artery stenosis admitted to telemetry, obtain MRI brain, will obtain lipid profile, monitor blood pressure, echocardiogram, PT OT passed swallow eval,neuro check place patient on aspirin obtain neuro consult DVT prophylaxis with Lovenox code status full code patient is Jehovah Witness and does not want blood products Quality Stroke Does the patient have a stroke diagnosis?: Yes Reason for No Anti-thrombotic by Day Two: N/A - Med Ordered VTE Prior VTE?: No VTE Risk Level:: Medical - moderate - high VTE Device Contraindication: Treatment Not Indicated VTE Drug Contraindication: N/A - Med Ordered
[2021-04-21] MEDS: Atorvastatin Calcium 40 MG TABLET PO (19:01)
[2021-04-21] MEDS: Enoxaparin Sodium 40 MG/0.4 ML SYRINGE SUBCUT (19:01)
--- NOTE | 2021-04-21 19:09 | PC.NURSE ---
medicated per provider orders.
--- NOTE | 2021-04-21 21:51 | PC.NURSE ---
pt a&ox3, resting quietly, reporting 10/10 pain (headache), vss, will continue to monitor.
[2021-04-21] MEDS: Acetaminophen 325 MG TABLET 650 MG PO (22:09)
[2021-04-22] VITALS (8 sets, daily range): BP systolic 112–149; BP diastolic 52–104; PULSE 70–109; RESP 14–20; TEMP 36.4–36.7; O2SAT 78–96
--- NOTE | 2021-04-22 00:10 | PC.NURSE ---
RN to bedside to answer call obrien. Pt found laying in stretcher awake and alert without distress. Pt did not realize that he hit the call obrien button and RN provided him with an overview of the buttons. pt denies pain or discomfort at this time. RN will continue to monitor.
[2021-04-22 08:10] LABS: Cholesterol 232 mg/dL; HDL Cholesterol 29 mg/dL; LDL Cholesterol Calculated 177 mg/dl; Triglycerides 132 mg/dL
[2021-04-22] MEDS: Aspirin Enteric Coated 81 MG TABLET.DR PO (09:22)
[2021-04-22] MEDS: 0.9 % Sodium Chloride Flush 3 ML SYRINGE IVFLUSH ×3 (09:22→20:08)
--- NOTE | 2021-04-22 09:25 | PM.NEUROCN ---
History of Present Illness Data of Consult Service Date: 04/22/21 Primary Care Provider: Maureen Ortega MD [facility] Reason for consult: Stroke 71 years old man who has history of retinal artery problem in the past details unclear not compliant with medications including aspirin came to emergency room with problem with right hand and arm. He said that it was like it was moving on its own. He said it started 5 days ago. When I asked him why he took so much long to come to emergency room, he said maybe it started sooner than that. He did not volunteer any left-sided problems. There was no pain numbness or tingling. Review of Systems Review of Systems: No recent cold or flu-like illness PMFSH Past Medical History Medical History Retinal artery branch occlusion of right eye Social History Social History Alcohol intake: current Alcohol intake frequency: 0-2 drinks per day Alcohol type: wine Patient Tobacco Use Status: Never used Tobacco Use of substances other than those prescribed or required for medical reasons: No Advance Directives: No Advance Directives Information Provided: No Meds Allergies Allergy/AdvReac Type Severity Reaction Status Date / Time No Known Allergies Allergy Verified 04/21/21 12:59 Active Medications: Current Medications Acetaminophen (Acetaminophen 325 Mg Tablet) 650 mg PO Q6H PRN PRN Reason: Pain, Mild (Pain Scale 1-3) Last Admin: 04/21/21 22:09 Dose: 650 mg Documented by: Aspirin (Aspirin Enteric Coated 81 Mg Tablet.) 81 mg PO DAILY [facility] Last Admin: 04/22/21 09:22 Dose: 81 mg Documented by: Enoxaparin Sodium (Enoxaparin Sodium 40 Mg/0.4 Ml Syringe) 40 mg SUBCUT Q24H [facility] Last Admin: 04/21/21 19:01 Dose: 40 mg Documented by: Ondansetron HCl (Ondansetron Hcl 4 Mg/2 Ml Vial) 4 mg IVPUSH Q8H PRN PRN Reason: Nausea and Vomiting Pharmacy Consult (Consult Rx Perform Med Rec) 1 each MISCELLANE ONCE PRN PRN Reason: Consult order Sodium Chloride (0.9 % Sodium Chloride Flush 3 Ml Syringe) 3 ml IVFLUSH QSHIFT [facility] Last Admin: 04/22/21 09:22 Dose: 3 ml Documented by: Home Medications Medication Instructions Recorded Confirmed Last Taken Type No Known Home Meds 04/21/21 04/21/21 Unknown History Physical Exam Vital Signs: Vital Signs: Last Vital Signs Temp 97.9 F 04/22/21 07:03 Pulse 70 04/22/21 08:27 Resp 14 04/22/21 07:03 BP 127/91 H 04/22/21 08:27 Pulse Ox 96 04/22/21 08:27 BMI result Body Mass Index 31.1 Neuro: Other: He was alert and awake with normal spontaneity of speech fluency comprehension and affect. Pupils were about 3 mm round reactive to light. Extraocular muscles were intact. Visual almazan are full to confrontation. Face was symmetrical. Tongue was midline. There was mild left pronator drift. Left [id number] testing revealed moderate did ataxia. There was no obvious leg weakness. With double simultaneous stimulation he did not noticed touch on left side. Results Labs CBC & Chem 7: 04/21/21 13:32 04/21/21 13:32 Labs: Short CBC 04/21/21 Range/Units 13:32 WBC 8.2 (4.8-10.8) X10*3/uL Hgb 16.8 (14.0-18.0) g/dl Hct 49.6 (42.0-52.0) % Plt Count 192 (160-400) X10*3/uL BMP 04/21/21 13:32 Sodium 140 Potassium 3.9 Chloride 105 Carbon Dioxide 25 BUN 16 Creatinine 0.87 Calcium 9.8 Cardiac Enzymes 04/21/21 Range/Units 13:32 Total Creatine Kinase 184 H (38-174) U/L Urine 04/21/21 Range/Units 14:38 Urine Color YELLOW Urine Appearance CLEAR Urine pH 6.0 (5.0-8.0) Ur Specific [place] 1.010 (1.005-1.025) Urine Protein NEG (NEG-TRACE) MG/DL Urine Glucose (UA) NEG (NEG) MG/DL His CT of brain revealed a subacute to chronic left parieto-occipital infarct and few more bilateral hypodense signal abnormalities suggestive of either subacute or chronic infarctions. Left internal carotid artery outside the head was occluded. Atherosclerotic disease was noted in right extracranial carotid. Assessment and Plan (1) Cerebrovascular accident: Status: Acute 71 years old man who probably had recent left internal carotid artery occlusion and associated infarct resulting in right-sided symptoms. His examination in fact revealed signs of left hemiparesis. This would suggest bilateral lesions and some of that we see on his head CT. I would recommend followin. MRI of brain without contrast 2. Aspirin 81 mg daily 3. Statin to bring his dyslipidemia in line 4. Stroke education 5. PT OT Procedures Date of Service Date of Service: 04/22/21
--- NOTE | 2021-04-22 11:00 | CA_ITS ---
Transthoracic Echocardiogram Patient (Last, First, Middle): Don Shah A Gender: Male Date of : 1950 Age: 71 Procedure Date: 04/22/2021 Procedure Type: Transthoracic Echocardiogram Location: ER Height: 175.26 cm Weight: 95.71 kg BSA: 2.11 m2 Heart Rate: bpm BP: 127 / 91 mmHg Registered Nurse Cardiovascular Icu: Referring MD: Lito Bonilla MD Symptoms: cva Study Quality: Fair Conclusions: - Normal left ventricular cavity size. There is mildly increased left ventricular wall thickness. The left ventricular systolic function is hyperdynamic. The visually estimated ejection fraction is >70%. - Normal right ventricular cavity size and systolic function. - There is mild dilatation of the sinuses of Valsalva measuring 4.20 cm and mild dilatation of the ascending aorta measuring 3.90 cm. Findings Left Ventricle Normal left ventricular cavity size. There is mildly increased left ventricular wall thickness. The left ventricular systolic function is hyperdynamic. The visually estimated ejection fraction is >70%. There is no evidence of regional wall motion abnormalities. Diastolic function is indeterminate on the basis of available data. Right Ventricle Normal right ventricular cavity size and systolic function. Atria Both atria are normal in size. Aortic Valve There is a normal trileaflet aortic valve. There is no aortic valve stenosis. There is trace (trivial) aortic valve regurgitation. Mitral Valve The mitral valve appears normal. There is no mitral valve regurgitation. There is no mitral valve stenosis. Pulmonic Valve The pulmonic valve is likely normal. Tricuspid Valve Normal tricuspid valve structure and function. There is trace tricuspid valve regurgitation. Tricuspid regurgitation envelope is inadequate for calculation of right ventricular systolic pressure. Normal right atrial pressure. Great Vessels There is mild dilatation of the sinuses of Valsalva measuring 4.20 cm and mild dilatation of the ascending aorta measuring 3.90 cm. Venous The inferior vena cava is normal in size and collapses greater than 50% with inspiration. Pericardium/Pleural There is no evidence of pericardial effusion. Prior Study Comparison No prior study available for comparison. Measurements 2D Linear Measurements IVSd: 1.25 0.6-0.9/0.6-1.0 cm LVIDd: 3.66 3.9-5.3/4.2-5.9 cm LVIDd Index: 1.73 2.4-3.2/2.2-3.1 cm/m2 LVIDs: 2.18 2.0-3.6 cm LVPWd: 1.32 0.7-1.1 cm Ao Root: 4.20 2.1-3.5 cm LA Diam: 3.80 2.7-3.8/3.0-4.0 cm LAIDs Index: 1.80 1.5-2.3 cm/m2 LV Mass: 200.49 67-162/88-224 g LV Mass Index: 95.02 43-95/49-115 g/m2 LVOT Diam: 3.10 3.0+(-)1.3 cm Mitral Valve MV Pk E: 0.51 MV PK A: 1.00 MV Decel Time: 99.00 E/A: 0.50 E'Lateral: 7.72 E'Medial: 52.60 E/E' Med: 1.00 E/E' Lat: 6.60 PHT: 29.00 MVA PHT: 7.59 Decel [place]: 5.09 Aortic Valve AoV Pk John: 1.46 AoV Mn John: 1.01 AoV VTI: 0.26 AoV Pk Grad: 9.00 Aov Mn Grad: 5.00 PETEY Cont.VTI: 7.32 LVOT LVOT Pk John: 1.37 LVOT Mn John: 1.00 LVOT VTI: 0.25 LVOT Pk Grad: 8.00 LVOT Mn Grad: 5.00 LVOT Diam: 3.10 LVOT Area: 7.55 Diastolic Function MV Pk E: 0.51 MV Pk A: 1.00 E/A: 0.50 E'Medial: 52.60 E/E' Med: 1.00 E' Laterial: 7.72 E/E' Lat: 6.60 Right Ventricle TAPSE (mm): 27.00 Tricuspid Valve TR Pk John: 2.15 TR Pk Grad: 18.00 Great Vessels Aorta Ao Root-2D: 4.20 2.0-3.7 cm Sinus of Valsalva: 4.20 2.0-3.5 cm Ao Asc: 3.90 2.1-3.4 cm Pulmonary Valve PV Pk John: 0.94 Peak PV Grad: 4.00 Updated in Other Vendor System with Status of Final Jose Enrique Izquierdo MD electronically signed on 04/23/2021 11:58:57 AM with status of Final
[2021-04-22] MEDS: Atorvastatin Calcium 80 MG TABLET PO (11:37)
--- NOTE | 2021-04-22 12:41 | HO.PM.IMPN ---
Subjective Subjective Date of Service: 04/22/21 Interval History: feels better left-sided weakness significantly improved, no new neuro symptoms overnight, speech clear, no headache, no dizziness, no chest pain, no palpitation tolerating diet. Review of Systems Review of Systems: Yes all other systems are reviewed and are negative Physical Exam Vital Signs: Vital Signs: Last Vital Signs Temp 97.6 F 04/22/21 11:43 Pulse 78 04/22/21 11:43 Resp 17 04/22/21 11:43 BP 149/104 H 04/22/21 11:43 Pulse Ox 95 04/22/21 11:43 BMI result Body Mass Index 31.1 Const: Other: General? awake alert x3, no acute distress.? Neck? supple no JVD. CVS? regular rate rhythm, Respiratory lungs clear to auscultation, no respiratory distress Gastrointestinal abdomen soft, nontender, bowel sounds audible Extremities no edema. Neuro? alert oriented x3 speech clear, face symmetrical, tongue midline, mild left pronator drift, mild? left-sided upper and lower extremity weakness , unsteady gait Skin no rash psych appropriate affect Objective Data Active Medications Acetaminophen (Acetaminophen 325 Mg Tablet) 650 mg PO Q6H PRN PRN Reason: Pain, Mild (Pain Scale 1-3) Last Admin: 04/21/21 22:09 Dose: 650 mg Documented by: KWASI Aspirin (Aspirin Enteric Coated 81 Mg Tablet.) 81 mg PO DAILY [facility] Last Admin: 04/22/21 09:22 Dose: 81 mg Documented by: CHUCK Atorvastatin Calcium (Atorvastatin Calcium 80 Mg Tablet) 80 mg PO DAILY [facility] Last Admin: 04/22/21 11:37 Dose: 80 mg Documented by: KRISHAN Enoxaparin Sodium (Enoxaparin Sodium 40 Mg/0.4 Ml Syringe) 40 mg SUBCUT Q24H [facility] Last Admin: 04/21/21 19:01 Dose: 40 mg Documented by: AUBRIE Ondansetron HCl (Ondansetron Hcl 4 Mg/2 Ml Vial) 4 mg IVPUSH Q8H PRN PRN Reason: Nausea and Vomiting Pharmacy Consult (Consult Rx Perform Med Rec) 1 each MISCELLANE ONCE PRN PRN Reason: Consult order Sodium Chloride (0.9 % Sodium Chloride Flush 3 Ml Syringe) 3 ml IVFLUSH QSHIFT [facility] Last Admin: 04/22/21 09:22 Dose: 3 ml Documented by: CHUCK Labs CBC & Chem 7: 04/21/21 13:32 04/21/21 13:32 Labs: Laboratory Results - last 24 hr 04/21/21 04/21/21 04/21/21 13:04 13:32 13:32 MCV 89.9 MCH 30.4 MCHC 33.9 RDW 11.9 Plt Count 192 MPV 10.5 Immature Gran % (Auto) 0.2 Neut % (Auto) 69.2 Lymph % (Auto) 22.0 Adams % (Auto) 7.5 Eos % (Auto) 1.0 Baso % (Auto) 0.1 Lymph # (Auto) 1.8 Adams # (Auto) 0.6 Eos # (Auto) 0.1 Baso # (Auto) 0.0 Abs Immat Gran (auto) 0.02 Absolute Neuts (auto) 5.7 Absolute Nucleated RBC 0.000 Nucleated RBC % (auto) 0.0 PT 11.4 INR 1.0 APTT 33.5 Anion Gap Estim Creat Clear Calc Estimated GFR POC Glucose 146 H Random Glucose Calcium Phosphorus Magnesium Total Creatine Kinase Triglycerides Cholesterol LDL Cholesterol, Calc HDL Cholesterol TSH Urine Color Urine Appearance Urine pH Ur Specific [place] Urine Protein Urine Glucose (UA) Urine Ketones Urine Blood Urine Nitrite Ur Leukocyte Esterase Ethyl Alcohol COVID-19 ([facility]) COVID-19 Clin Com 04/21/21 04/21/21 04/21/21 13:32 13:32 13:48 MCV MCH MCHC RDW Plt Count MPV Immature Gran % (Auto) Neut % (Auto) Lymph % (Auto) Adams % (Auto) Eos % (Auto) Baso % (Auto) Lymph # (Auto) Adams # (Auto) Eos # (Auto) Baso # (Auto) Abs Immat Gran (auto) Absolute Neuts (auto) Absolute Nucleated RBC Nucleated RBC % (auto) PT INR APTT Anion Gap 14 Estim Creat Clear Calc 90.1 Estimated GFR > 60 POC Glucose Random Glucose 141 H Calcium 9.8 Phosphorus 3.4 Magnesium 1.9 Total Creatine Kinase 184 H Triglycerides Cholesterol LDL Cholesterol, Calc HDL Cholesterol TSH 1.13 Urine Color Urine Appearance Urine pH Ur Specific [place] Urine Protein Urine Glucose (UA) Urine Ketones Urine Blood Urine Nitrite Ur Leukocyte Esterase Ethyl Alcohol < 10 COVID-19 (CATHIE) Negative COVID-19 Clin Com See Note 04/21/21 04/22/21 14:38 07:02 MCV MCH MCHC RDW Plt Count MPV Immature Gran % (Auto) Neut % (Auto) Lymph % (Auto) Adams % (Auto) Eos % (Auto) Baso % (Auto) Lymph # (Auto) Adams # (Auto) Eos # (Auto) Baso # (Auto) Abs Immat Gran (auto) Absolute Neuts (auto) Absolute Nucleated RBC Nucleated RBC % (auto) PT INR APTT Anion Gap Estim Creat Clear Calc Estimated GFR POC Glucose Random Glucose Calcium Phosphorus Magnesium Total Creatine Kinase Triglycerides 132 Cholesterol 232 LDL Cholesterol, Calc 177 HDL Cholesterol 29 TSH Urine Color YELLOW Urine Appearance CLEAR Urine pH 6.0 Ur Specific [place] 1.010 Urine Protein NEG Urine Glucose (UA) NEG Urine Ketones NEG Urine Blood NEG Urine Nitrite NEG Ur Leukocyte Esterase NEG Ethyl Alcohol COVID-19 ([facility]ATHIE) COVID-19 Clin Com Assessment and Plan (1) Cerebrovascular accident: Status: Acute Plan 71-year-old gentleman with past medical history significant for right retinal artery occlusion not on home medications , no prior history of hypertension, hyperlipidemia, no history of smoking,presented to [facility] with left-sided weakness unsteady gait, CT head and neck suggestive of prior? stroke, complete occlusion of left ICA, and 55% stenosis of right ICA patient will be admitted to medical floor for continued monitoring and treatment ?acute CVA with left-sided weakness noted to have bilateral carotid disease, elevated LDL 177, total cholesterol 232 elevated diastolic blood pressure, follow BP closely follow echocardiogram started on aspirin and statins cannot undergo MRI study due to metal in right maxillary sinus, will obtain CT head without contrast to look for acute infarction seen by physical therapy they recommend acute rehab ?DVT prophylaxis with? Lovenox ?code status full code patient is [employer] Witness and does not want blood products Quality Stroke Does the patient have a stroke diagnosis?: Yes Reason for No Anti-thrombotic by Day Two: N/A - Med Ordered VTE Prior VTE?: No VTE Risk Level:: Medical - moderate - high VTE Device Contraindication: Treatment Not Indicated VTE Drug Contraindication: N/A - Med Ordered
[2021-04-22] MEDS: Enoxaparin Sodium 40 MG/0.4 ML SYRINGE SUBCUT (20:07)
[2021-04-23 03:44] VITALS: BP 118/92; PULSE 86; RESP 19; TEMP 36.6; O2SAT 93
[2021-04-23] MEDS: Atorvastatin Calcium 80 MG TABLET PO (07:08)
[2021-04-23] MEDS: Aspirin Enteric Coated 81 MG TABLET.DR PO (07:09)
[2021-04-23] MEDS: 0.9 % Sodium Chloride Flush 3 ML SYRINGE IVFLUSH (07:09)
[2021-04-23 07:45] VITALS: BP 149/86; PULSE 77; RESP 18; TEMP 37.1; O2SAT 94
[2021-04-23 11:02] VITALS: BP 149/86; PULSE 77; O2SAT 94
[2021-04-23 11:15] VITALS: BP 146/94; PULSE 98; RESP 17; TEMP 36.8; O2SAT 98
--- NOTE | 2021-04-23 13:08 | MHC.CM.PN ---
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 PT GIVEN EDUCATIONAL INFO ON HCP'S HOWEVER PT CURRENTLY DECLINES HE DOES NOT KNOW WHO HE WOULD CHOSE, PT ALSO NOT ACTIVE ANY PCP, HIS RETIRED AND HIS INSURANCE SENT A LETTER SAYING HIS NEW PCP WAS [facility] HOWEVER HE HAS NOT BEEN ABLE TO GET THROUGH, CM PULL WORKER WILL MAKE APPT FOR PT AND CALL HIM W/DETAILS HE WOULD LIKE TO D/C. D/C PLAN: HOME NO SERVICES, FAMILY FOR TRANSPORT.
--- NOTE | 2021-04-23 13:22 | PM.DS ---
DS: Providers Provider Date of Service: 04/23/21 Date of admission: 04/21/21 18:15 Primary care physician: Maureen Ortega MD Consults: 04/21/21 18:19 Consult to Neurology Routine Consulting Provider: [facility] Reason for consultation: acute cva Has provider been notified: No DS: Diagnosis Discharge Diagnosis (1) Cerebrovascular accident: Status: Acute DS: Summary Hospital Course Hospital Course: Chief Complaint:? left-sided weakness ?71-year-old gentleman with past medical history significant for right retinal artery occlusion 4 years ago not compliant with aspirin, presented to [facility] due to left-sided weakness since 22:00 last night, patient is awake historian but according to him? last evening? while in bed at 10pm he noted his right arm is moving involuntarily that occurred 3-4 times, then he got up? and noted that his gait is unsteady and he felt that his left arm is heavy? and tingling while he was reaching for a Tylenol bottle, then he went to bed and woke up this morning call his friend and told him about his symptoms, therefore friend brought him to [facility] patient also complained of associated headache, but denies any recent bout of fall head injuries, no fever no chills no speech impairment no patient impairment no nausea no vomiting, in the emergency room he was noted to have left arm pronator drift and decreased left lower extremity strength therefore CT head and neck was obtained that showed left ICA complete occlusion, right ICA 55% stenosis there was encephalomalacia age indeterminate of right frontal and parietal lobe, chronic 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 71-year-old gentleman with past medical history significant for right retinal artery occlusion not on home medications , no prior history of hypertension, hyperlipidemia, no history of smoking,presented to [facility] with left-sided weakness unsteady gait, CT head and neck suggestive of prior? 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 Monique he recommend outpatient follow-up for right ICA stenosis, prior to discharge left-sided weakness completely resolved patient is ambulating with steady gait, he has been strongly recommended compliance with medication and close follow-up with PCP and vascular surgeon. ? Time Spent with Patient Time attestation: Total time spent providing and/or coordinating discharge services: Discharge coordination time: Greater than 30 minutes Quality: Stroke Does the patient have a stroke diagnosis?: No Physical Exam Vital Signs: Vital Signs: Last Vital Signs Temp 98.2 F 04/23/21 11:15 Pulse 98 04/23/21 11:15 Resp 17 04/23/21 11:15 BP 146/94 H 04/23/21 11:15 Pulse Ox 98 04/23/21 11:15 BMI result Body Mass Index 31.1 Const: Other: General? awake alert x3, no acute distress.? Neck? supple no JVD. CVS? regular rate rhythm, Respiratory lungs clear to auscultation, no respiratory distress Gastrointestinal abdomen soft, nontender, bowel sounds audible Extremities no edema. Neuro? alert oriented x3 speech clear, face symmetrical, tongue midline, left-sided upper and lower extremity weakness resolved, gait improved Skin no rash psych appropriate affect Discharge Plan Discharge Patient Disposition: Home Health Service Discharge Diagnosis: acute CVA Referrals: [facility] SHUTTLE [Other] - 1 Week (PLEASE CALL [phone] IF YOU NEED RIDES TO AND FROM THE HOSPITAL FOR APPT'S.) Maureen Ortega MD [Primary Care Provider] - 1 Week Discharge Medications: New atorvastatin 80 mg Tablet 80 mg PO DAILY Qty: 30 0RF aspirin 81 mg Tablet,Delayed Release (Dr/Ec) 81 mg PO DAILY Qty: 30 0RF Discharge Orders: Discharge Order (Routine); Ordered 04/23/21 Ordered By: Lito Bonilla Diet: low fat, low cholesterol Activity on Discharge: As tolerated Stand Alone Forms: Patient Portal Discharge page Care Plan Goals: acute CVA take aspirin and Lipitor due to high cholesterol follow lipid profile in 3-4 months have bilateral carotid artery occlusion follow-up with Dr. Monique from vascular surgery in next 2-3 weeks Health Concerns: take aspirin and Lipitor as prescribed Plan of Treatment: outpatient follow-up with primary care physician in 1-2 weeks, outpatient follow-up with Dr. Monique from vascular surgery in 2-3 weeks call to make an appointment Assessment: per discharge summary Discharge Date/Time: 04/23/21 14:36
== END 2021-04-23 14:36 | disposition home health service (06) | DRG 65 ==
LOC: HO.ED 16:55 → HO.EDOVER 18:22 → HO.S3 04-22 13:28
PROVIDERS: Nurse Practitioner Family; Admitting Provider Hospitalist; Emergency Provider Emergency Medicine; PCP Nurse Practitioner Primary Care; Visit Provider Hospitalist
DX: I63.233 Cerebral infarction due to unspecified occlusion or stenosis of bilateral carotid arteries (principal); G81.94 Hemiplegia, unspecified affecting left nondominant side; R29.704 NIHSS score 4; Z20.822 Contact with and (suspected) exposure to COVID-19; Z91.14 Patient's other noncompliance with medication regimen; Z79.82 Long term (current) use of aspirin; Z79.899 Other long term (current) drug therapy
CPT/HCPCS: 36415; 70450; 70496; 70498; 80048; 80061; 81003; 82077; 82550; 82947; 83735; 84100; 84443; 84484; 85025; 85610; 85730; 87635; 93005; 93306; 97110; 97112; 97116; 97162; 97165; 99285; J1650; Q9967

== ENCOUNTER → 2021-05-12 09:17 | Outpatient (BNVA) | payer MEDICARE, SELFPAY | PROVIDERS: PCP Nurse Practitioner Primary Care; Visit Provider Surgery Vascular Surgery | DX: I65.23 Occlusion and stenosis of bilateral carotid arteries (principal); R35.0 Frequency of micturition; Z79.82 Long term (current) use of aspirin; Z79.899 Other long term (current) drug therapy | CPT/HCPCS: 99202 ==

== ENCOUNTER → 2021-06-18 14:32 | Outpatient (BNVA) | payer MEDICARE, SELFPAY | PROVIDERS: PCP Nurse Practitioner Primary Care; Referring Provider Nurse Practitioner Primary Care; Visit Provider Nurse Practitioner | DX: E78.00 Pure hypercholesterolemia, unspecified (principal); I69.398 Other sequelae of cerebral infarction; H34.231 Retinal artery branch occlusion, right eye | CPT/HCPCS: 99202 ==

== ENCOUNTER 2021-06-18 15:24 | Outpatient (REF) | payer MEDICARE, SELFPAY ==
[2021-06-18 16:15] LABS: Alanine Aminotransferase 78 U/L (0-40); Albumin Level 3.9 g/dL (3.5-5.0); Alkaline Phosphatase 86 U/L (39-117); Aspartate Amino Transferase 57 U/L (5-37); Bilirubin Direct 0.4 mg/dL (0.0-0.5); Bilirubin Total 0.8 mg/dL (0.0-1.0); Total Protein 7.4 g/dL (6.5-8.0)
== END 2021-06-18 15:25 | disposition home or self-care (01) ==
LOC: HO.LAB 15:24
PROVIDERS: Absent Provider Nurse Practitioner Primary Care; PCP Nurse Practitioner Primary Care; Visit Provider Nurse Practitioner
DX: Z12.11 Encounter for screening for malignant neoplasm of colon (principal)
CPT/HCPCS: 36415; 80076

== ENCOUNTER 2021-06-22 13:23 | Outpatient (REF) | payer MEDICARE, SELFPAY ==
[2021-06-22 16:17] LABS: Prostate Specific Antigen 1.91 ng/mL (<0.05-4.0)
== END 2021-06-22 13:24 | disposition home or self-care (01) ==
LOC: HO.LAB 13:23
PROVIDERS: PCP Nurse Practitioner Primary Care
DX: Z12.5 Encounter for screening for malignant neoplasm of prostate (principal); R35.0 Frequency of micturition
CPT/HCPCS: 36415; 51798; 84153; 99202

== ENCOUNTER → 2021-09-15 14:29 | Outpatient (BNVA) | payer MEDICARE, SELFPAY | PROVIDERS: PCP Nurse Practitioner Primary Care | DX: R35.0 Frequency of micturition (principal) | CPT/HCPCS: Q3014 ==

== ENCOUNTER 2021-11-25 12:42 | Outpatient (REF) | payer MEDICARE, SELFPAY ==
--- NOTE | ~2021-11-25 | US_ITS ---
EXAMINATION: US EXTRACRANIAL CAROTID DUPLEX, BILATERAL CLINICAL INFORMATION: Occlusion and stenosis of the bilateral carotid arteries COMPARISON: Carotid duplex on 01/14/2015, CTA Head and Neck on 04/21/2021 TECHNIQUE: Real-time ultrasound and Doppler techniques (integrating B-mode 2-D vascular images, Doppler spectral analysis and color-flow Doppler imaging) were utilized to interrogate the extracranial carotid arteries, the vertebral arteries and proximal subclavian arteries bilaterally. The degree of stenosis is determined by criteria similar to NASCET. FINDINGS: Right Side: 1. There is mild atherosclerotic plaque seen in the bifurcation/proximal ICA region. 2. The common carotid artery PSV proximally is 113 cm/s and distally 78 cm/s. 3. The proximal internal carotid artery velocities are 117 cm/s systolic and 32 cm/s diastolic. 4. The proximal external carotid artery PSV is 68 cm/s. 5. The vertebral artery shows antegrade flow. 6. The subclavian artery waveforms are normal. Left Side: 1. There is heterogeneous atherosclerotic plaque seen in the bifurcation/proximal ICA region. 2. The common carotid artery PSV proximally is 72 cm/s and distally 47 cm/s. 3. The internal carotid artery is occluded. 4. The proximal external carotid artery PSV is 84 cm/s. 5. The vertebral artery shows antegrade flow. 6. The subclavian artery waveforms are normal. US/US carotid duplex BI IMPRESSION: 1. RIGHT: Minimal, non-hemodynamically significant stenosis of the proximal right internal carotid artery corresponding to a 0-49% stenosis by velocity criteria. 2. LEFT: Left internal carotid artery is occluded (stable from 04/21/2021).
== END 2021-11-25 12:43 | disposition home or self-care (01) ==
LOC: HO.US 12:42
PROVIDERS: Visit Provider Surgery Vascular Surgery
DX: I65.23 Occlusion and stenosis of bilateral carotid arteries (principal)
CPT/HCPCS: 93880

== ENCOUNTER → 2022-02-02 13:40 | Outpatient (BNVA) | payer MEDICARE, SELFPAY | PROVIDERS: PCP Family Medicine; Visit Provider Surgery Vascular Surgery | DX: I65.23 Occlusion and stenosis of bilateral carotid arteries (principal); Z86.73 Personal history of transient ischemic attack (TIA), and cerebral infarction without residual deficits; Z79.82 Long term (current) use of aspirin; Z79.899 Other long term (current) drug therapy | CPT/HCPCS: 99212 ==

== ENCOUNTER → 2022-02-25 11:04 | Outpatient (BNVA) | payer MEDICARE, SELFPAY | PROVIDERS: PCP Family Medicine; Visit Provider Urology | DX: N40.1 Benign prostatic hyperplasia with lower urinary tract symptoms (principal); N13.8 Other obstructive and reflux uropathy; R35.0 Frequency of micturition | CPT/HCPCS: 51798; 99212 ==

== ENCOUNTER 2022-03-31 12:25 | Outpatient (REF) | payer SELFPAY ==
--- NOTE | ~2022-03-31 | US_ITS ---
EXAMINATION: US RETROPERITONEAL COMPLETE (RENAL) CLINICAL INFORMATION: 72-year-old male with increased frequency of micturition. COMPARISON: None TECHNIQUE: Real-time imaging of the kidneys and bladder. FINDINGS: RIGHT KIDNEY: 12.4 x 7 x 6.2 cm (SAG x AP x TRV). No evidence of nephrolithiasis or hydronephrosis. There are several simple cysts of the kidney, including 5.7 cm in the posterior interpolar area. No renal imaging follow-up is recommended for simple cysts. LEFT KIDNEY: 11.5 x 6.7 x 5.2 cm (SAG x AP x TRV). A Bosniak category 2 cyst with thin septations in the interpolar area measures up to 4.5 cm maximum dimension. No renal imaging follow-up is recommended for Bosniak category 2 cysts. There appears to be a small 0.3 cm stone in the lower pole. No hydronephrosis. BLADDER: Well distended with normal wall thickness. No evidence of bladder mass or stone. Bilateral ureteral jets are demonstrated. Prevoid bladder volume is 133 mL. Postvoid bladder volume is 25 mL. OTHER: Prostate gland measures approximately 5 x 3.8 x 4.7 cm. US/US retroperitoneal comp IMPRESSION: * No evidence of upper urinary tract obstruction. There appears to be a small stone of the lower pole of the left kidney. * Benign, Bosniak category 1 and category 2 cysts of the kidneys. * Mild prostatomegaly. * Postvoid bladder residual of 25 mL.
== END 2022-03-31 12:26 | disposition home or self-care (01) ==
LOC: HO.US 12:25
PROVIDERS: Visit Provider Urology
DX: N40.1 Benign prostatic hyperplasia with lower urinary tract symptoms (principal); R35.0 Frequency of micturition
CPT/HCPCS: 76770

== ENCOUNTER → 2022-04-05 13:59 | Outpatient (BNVA) | payer MEDICARE, SELFPAY | PROVIDERS: PCP Family Medicine; Visit Provider Urology | DX: R35.0 Frequency of micturition (principal); N32.81 Overactive bladder; N28.1 Cyst of kidney, acquired; Z86.73 Personal history of transient ischemic attack (TIA), and cerebral infarction without residual deficits | CPT/HCPCS: 99212 ==

== ENCOUNTER 2022-04-08 07:56 | Outpatient (REF) | payer MEDICARE, SELFPAY ==
--- NOTE | ~2022-04-08 | US_ITS ---
EXAMINATION: US ABDOMEN COMPLETE CLINICAL INFORMATION: Chronic viral hepatitis C. COMPARISON: Ultrasound kidneys and bladder 03/31/2022. TECHNIQUE: Real-time imaging of the abdominal viscera. Technically limited study secondary to bowel gas and body habitus. FINDINGS: PANCREAS: The pancreas obscured by overlying gas. ABDOMINAL AORTA: Mild atherosclerotic changes of the abdominal aorta with an ectatic dilated distal abdominal aorta measuring 2.80 cm in AP dimension. INFERIOR VENA CAVA: Visualized portions are normal. LIVER: The gallbladder wall thickness is 0.2 cm..The liver is normal in size. The liver contour is normal. Parenchymal echogenicity is normal. No focal hepatic lesion. There is no intrahepatic biliary duct dilatation seen. GALLBLADDER: Normal. The gallbladder is physiologically distended without evidence of stones, sludge, polyps, wall thickening or pericholecystic fluid. COMMON BILE DUCT: Normal in caliber measuring 0.4 cm in diameter. RIGHT KIDNEY: No hydronephrosis or renal calculi. The kidney measures 12.2 cm in maximum dimension. There is an echogenic stone midpole measuring 0.2 x 0.1 x 0.2 cm without caliectasis. There are several anechoic cysts; largest midpole cyst measures 6.2 x 5.1 x 5.1 cm. Previously it measured 5.7 cm. There is mild caliectasis and pelvic fullness similar previous study. LEFT KIDNEY: No hydronephrosis or renal calculi. The kidney measures 11.9 cm in maximum dimension. There are nonobstructive echogenic stones. The lower pole calculus measure 0.4 x 0.2 x 0.2 cm. Upper pole calculus measure 0.4 x 0.2 x 0.4 cm. There are multiple anechoic cysts, largest cyst with echogenic septation measures 3.0 x 2.2 x 4.1 cm in midpole. There is mild caliectasis and pelvic fullness. SPLEEN: Normal. The spleen measures 11.0 cm in maximum dimension. FREE FLUID: None. US/US abdomen complete IMPRESSION: 1. Bilateral nonobstructive echogenic renal calculi. There are 2 calculi seen in the left kidney and a solitary calculus in the right kidney. Previously only one calculus was seen in the left kidney. 2. Bilateral renal cysts. There is a complex Bosniak type II cyst left kidney, unchanged. Simple cysts are seen in both kidneys. 3. There is mild caliectasis and pelvic fullness of both kidneys. 4. The rest of the abdominal ultrasound is unremarkable.
== END 2022-04-08 07:57 | disposition home or self-care (01) ==
LOC: HO.US 07:56
PROVIDERS: PCP Family Medicine; Visit Provider Nurse Practitioner Primary Care
DX: B18.2 Chronic viral hepatitis C (principal)
CPT/HCPCS: 76700

== ENCOUNTER 2022-06-07 10:33 | Outpatient (REF) | payer MEDICARE, SELFPAY ==
--- NOTE | ~2022-06-07 | US_ITS ---
EXAMINATION: US PELVIS LIMITED (BLADDER) CLINICAL INFORMATION: Benign prostatic hypertrophy. COMPARISON: Ultrasound abdomen complete 04/08/2022. TECHNIQUE: Real-time imaging of the bladder. FINDINGS: BLADDER: Well distended and normal. Bilateral ureteral jets are demonstrated. Prevoid bladder volume is 303.0 mL. Postvoid bladder volume is 45.1 mL. The prostate is enlarged measuring 72.5 mL. US/US bladder IMPRESSION: 1. [id number] postvoid residual bladder volume. 2. Moderate prostate enlargement.
== END 2022-06-07 10:34 | disposition home or self-care (01) ==
LOC: HO.US 10:33
PROVIDERS: PCP Family Medicine; Visit Provider Urology
DX: N40.1 Benign prostatic hyperplasia with lower urinary tract symptoms (principal); R35.0 Frequency of micturition
CPT/HCPCS: 76857

== ENCOUNTER → 2022-06-16 14:52 | Outpatient (BNVA) | payer MEDICARE, SELFPAY | PROVIDERS: PCP Family Medicine; Visit Provider Urology | DX: R35.0 Frequency of micturition (principal); R35.1 Nocturia; N32.81 Overactive bladder; N28.1 Cyst of kidney, acquired; Z86.73 Personal history of transient ischemic attack (TIA), and cerebral infarction without residual deficits | CPT/HCPCS: 51798; 99212 ==

== ENCOUNTER → 2022-08-03 13:53 | Outpatient (BNVA) | payer MEDICARE, SELFPAY | PROVIDERS: PCP Family Medicine; Referring Provider Family Medicine; Visit Provider Nurse Practitioner | DX: Z01.818 Encounter for other preprocedural examination (principal) | CPT/HCPCS: 99212 ==

== ENCOUNTER 2022-08-19 09:23 | Outpatient (REF) | payer MEDICARE, SELFPAY ==
[2022-08-27 21:59] LABS: PSA, Ultra Sensitive 1.26 ng/mL
== END 2022-08-19 09:24 | disposition home or self-care (01) ==
LOC: HO.10HDL 09:23
PROVIDERS: Visit Provider Urology
DX: Z12.5 Encounter for screening for malignant neoplasm of prostate (principal)
CPT/HCPCS: 36415; 84153

== ENCOUNTER 2022-08-27 13:28 | Outpatient (AMB) | payer MEDICARE, SELFPAY ==
--- NOTE | 2022-08-27 13:39 | A.OFFVIS_ITS ---
Intake Intake Visit Reasons: 10w/nocturia/PSA(?) Intake Note: Patient presents today for a 10w follow-up on Nocturia ? Meds: Fesoterodine ? Allergies to Antibiotic: None ? Blood Thinner: Aspirin ? PVR: 34 ml Ophthalmic Surgeon Required: No Accompanied by: Self / Same As Patient Allergies No Known Allergies Allergy (Verified 08/03/22 14:18) HPI HPI Comments History of Present Illness Details Don is a 72-year-old male who is here for follow-up for OAB symptoms and BPH. Co-morbidity- history of stroke He is currently prescribed Toviaz 5 mg He was last seen on 06/16/2022 at that time I added Alfuzosin 10 mg Review of imaging-- Renal US results reviewed?03/31/2022-- Suggestive of a small stone of the lower pole of the left kidney. Benign, Bosniak category 1 and category 2 cysts of the kidneys. Mild prostatomegaly. Postvoid bladder residual of 25 mL. Bladder US results reviewed?06/07/22-- Suggestive of hailh-hb-kvgjybpv postvoid residual bladder volume and moderate prostate enlargement. Labs reviewed--PSA--06/22/2021--1.91. 08/27/22-- The patient states taking both the medications with benefits. The patient states nocturia episodes 2-3 times per night. States drinking coffee occasionally at night. Evaluation today-- Blood: negative, leukocytes: negative. Plan: Continue taking Toviaz 5 mg and Alfuzosin 10 mg. Follow-up after 6 months. [facility] Medical History Retinal artery branch occlusion of right eye Social History Household Members: None Housing: Apartment Do you presently have visiting nurse or other home services: No Alcohol intake: current Alcohol intake frequency: 0-2 drinks per day Alcohol type: wine Patient Tobacco Use Status: Never used Tobacco service: No Current occupational status: retired Review of Systems Const Reports no additional complaints Eyes Reports no additional complaints ENT Reports no additional complaints Card Denies dyspnea Resp Denies cough and Denies dyspnea GI Reports no additional complaints Musc Reports no additional complaints Skin/Breast Denies rash and Denies unusual bruising Neuro Reports no additional complaints Psych Reports no additional complaints Endo Reports no additional complaints David/Lymph Reports no additional complaints Aller/Immun Reports no additional complaints Physical Exam Const General: healthy appearing, no acute distress and well developed Orientation/consciousness: patient oriented x3 HEENT Head: Yes normocephalic and Yes atraumatic Eyes Conjunctivae: conjunctivae normal Neck Neck: Yes normal visual inspection Chest Chest palpation & inspection: normal inspection of the chest Resp Effort & Inspection: normal respiratory effort Cardio Rate: regular rate GI Inspection: Yes normal to inspection Skin General skin exam: no rashes or lesions noted Neuro General: patient oriented x3 Psych Appearance: grossly normal Affect: normal affect Office Procedures Post Void Residual Post Residual Void Post Void Residual (PVR): 34 62968-Eyed Void Residual by ultrasound Results AMB Urinalysis, Automated UA Leukoctes 0 Chandrika/uL Last Edit by SARAH Solano on 08/27/22 14:31 UA Nitrite Negative Last Edit by SARAH Solano on 08/27/22 14:31 UA Urobilinogen 0.2 mg/dL Last Edit by SARAH Solano on 08/27/22 14:3 1 UA Protein 0 mg/dL Last Edit by SARAH Solano on 08/27/22 14:31 UA pH 7.0 Last Edit by SARAH Solano on 08/27/22 14:31 UA Blood 0 Brendan/uL Last Edit by SARAH Solano on 08/27/22 14:31 UA Specific [place] 1.015 Last Edit by SARAH Solano on 08/27/22 14: 31 UA Ketone Negative Last Edit by SARAH Solano on 08/27/22 14:31 UA Bilirubin 0 mg/dL Last Edit by Marce Blandon Lon on 08/27/22 14:31 UA Glucose 0 mg/dL Last Edit by SARAH Solano on 08/27/22 14:31 Results Reviewed Results Reviewed: Laboratory Last Values Urine pH (Auto) 7.0 08/27/22 14:21 Specific [place] (Auto) 1.015 08/27/22 14:21 Urine Protein (Auto) 0 mg/dL 08/27/22 14:21 Glucose (UA)(Auto) 0 mg/dL 08/27/22 14:21 Urine Ketones (Auto) Negative 08/27/22 14:21 Urine Blood (Auto) 0 Brendan/uL 08/27/22 14:21 Urine Nitrite (Auto) Negative 08/27/22 14:21 Urine Bilirubin (Auto) 0 mg/dL 08/27/22 14:21 Urine Urobilinogen (Auto) 0.2 mg/dL 08/27/22 14:21 Leukocyte Esterase (Auto) 0 Chandrika/uL 08/27/22 14:21 Assessment & Plan Assessment & Plan (1) Increased urinary frequency: Code(s): R35.0 - Frequency of micturition (2) OAB (overactive bladder): Code(s): N32.81 - Overactive bladder (3) History of stroke: Code(s): Z86.73 - Personal history of transient ischemic attack (TIA), and cerebral infarction without residual deficits (4) Nocturia: Code(s): R35.1 - Nocturia (5) Simple renal cyst: Code(s): N28.1 - Cyst of kidney, acquired Plan Continue taking Toviaz 5 mg and Alfuzosin 10 mg. Follow-up after 6 months. Orders: Orders AMB Urinalysis Automated 08/27/22 Z13.9 - Encounter for screening, unspecified AMB Post Void Residual by ultrasound 08/27/22 N39.8 - Other specified disorders of urinary system Patient Instructions: The patient had an opportunity to ask questions regarding treatment plan. All questions were answered. Laboratory studies and physical exam results were discussed and reviewed in detail. No major barriers to understanding were identified. The patient expressed understanding and agreement with the above treatment plan. The patient is aware they should contact our office by phone for worsening of their current condition or the appearance of new symptoms. Compliance is encouraged with any medications and followup testing that is ordered. It is a privilege to be allowed the opportunity to participate in the urologic care of your patient. If you have any questions or concerns regarding treatment for the above conditions please do not hesitate to contact me. The office telephone contact is [phone]. This note is constructed in part using voice recognition software. While every effort has been made to ensure accuracy grocery store associate errors may have been included. Yours sincerely, Thad Scott MD Coding Level of Care Code Est Pt Level 3 (62568) Diagnoses Increased urinary frequency R35.0 OAB (overactive bladder) N32.81 History of stroke Z86.73 Nocturia R35.1 Simple renal cyst N28.1 CPT Codes Post Residual Void - PVR CPT Code: 46086-Isnr Void Residual by ultrasound ([id number])
== END 2022-08-27 14:50 | disposition home or self-care (01) ==
LOC: HO.HUSH 13:28
PROVIDERS: PCP Family Medicine; Visit Provider Urology
DX: R35.0 Frequency of micturition (principal); N32.81 Overactive bladder; Z86.73 Personal history of transient ischemic attack (TIA), and cerebral infarction without residual deficits; R35.1 Nocturia; N28.1 Cyst of kidney, acquired
CPT/HCPCS: 99213

== ENCOUNTER → 2022-08-27 13:28 | Outpatient (BNVA) | payer MEDICARE, SELFPAY | PROVIDERS: PCP Family Medicine; Visit Provider Urology | DX: N39.8 Other specified disorders of urinary system (principal); R35.1 Nocturia; N32.81 Overactive bladder; Z86.73 Personal history of transient ischemic attack (TIA), and cerebral infarction without residual deficits; Z79.82 Long term (current) use of aspirin; Z79.899 Other long term (current) drug therapy | CPT/HCPCS: 51798; 99212 ==

== ENCOUNTER 2023-01-14 01:43 | Emergency (ER) | payer MEDICARE, SELFPAY ==
[2023-01-14] VITALS (10 sets, daily range): BP systolic 121–154; BP diastolic 88–98; PULSE 99–122; RESP 12–20; TEMP 36.7–36.9; O2SAT 97–98; BMI 28.1
--- NOTE | 2023-01-14 | ECG_ITS ---
Test Reason : TACHY Blood Pressure : / mmHG Vent. Rate : 098 BPM Atrial Rate : 098 BPM P-R Int : 186 ms QRS Dur : 090 ms QT Int : 346 ms P-R-T Axes : 022 -49 021 degrees QTc Int : 441 ms Normal sinus rhythm Left anterior fascicular block Abnormal ECG When compared with ECG of 21-APR-2021 13:09, No significant change was found Referred By: Generic ED Physician Electronically Signed By:DENISE OROSCO MD
--- NOTE | ~2023-01-14 | CT_ITS ---
EXAMINATION: CT ANGIOGRAM ABDOMEN AND PELVIS CLINICAL INFORMATION: GI bleed. COMPARISON: None available. TECHNIQUE: Multidetector volumetric imaging was performed from the lower chest through the abdomen to the pubic symphysis following the administration of 80 mL Omnipaque 350 intravenous contrast. No contrast reaction reported Sagittal, coronal, and MIP oblique sagittal reformatted images were obtained on the CT workstation, uploaded to PACS, and reviewed. This CT examination was performed using dose optimization techniques as appropriate, variously including the following: *Automated exposure control *Adjustment of mA and/or kV according to patient size (this includes techniques or standardized protocols for targeted exams where dose is matched to indication/reason for exam; i.e. extremities or head) *Use of iterative reconstruction technique DLP: 1699 mGy-cm FINDINGS: LUNG BASES: There is minimal scarring at the right lung base. LIVER, GALLBLADDER, AND BILIARY TREE: The liver is slightly irregular in contour. No focal hepatic lesion or biliary ductal dilatation is present. The gallbladder is unremarkable with no evidence of radiopaque gallstones, gallbladder wall thickening, or obvious pericholecystic inflammatory changes. PANCREAS: Unremarkable. SPLEEN: Unremarkable. ADRENAL GLANDS: Unremarkable. KIDNEYS AND URETERS: The kidneys are normal in size, and attenuation. There are scattered bilateral renal calculi measuring up to 3 mm lower pole right kidney. There is no hydronephrosis. Multiple bilateral renal cysts are noted measuring up to 6.3 cm upper pole left kidney. BLADDER: Unremarkable. GASTROINTESTINAL TRACT: There are diverticula of the transverse, descending and the sigmoid colon. There is mild infiltrative change along a proximal descending colonic diverticula. There is contrast extravasation lower descending colon with contrast accumulation on delayed imaging. The appendix is visualized and is within normal limits. ABDOMINAL WALL: There is a small umbilical hernia containing fat. LYMPH NODES: Normal. VASCULAR: There is atherosclerotic plaque of the abdominal aorta with an infrarenal bulge measuring up to 2.4 cm. 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 PELVIC VISCERA: There is prostate gland hypertrophy. OSSEOUS STRUCTURES: There is diffuse exdt-zx-hecotqea thoracolumbar disc degenerative change. There is a likely chronic compression fracture of T12. CT/CT gi bleed abd pel wo/w IVcon IMPRESSION: Diverticula of the transverse, descending and sigmoid colon. Contrast extravasation and accumulation lower descending colon consistent with active GI bleeding likely related to diverticular disease. There is mild infiltrative change along a single diverticula of the proximal descending colon possibly early diverticulitis. Nonobstructing renal calculi. Irregular liver contour possibly hepatocellular disease/early cirrhosis. 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 Prostate gland hypertrophy. Fleischner guidelines were followed.
[2023-01-14 02:10] LABS: Mean Corpuscular Volume 92.9 fL (80.0-98.0); PLT CLUMP 1
[2023-01-14 02:12] LABS: Hematocrit 43.5 % (42.0-52.0); Hemoglobin 14.7 g/dl (14.0-18.0); Mean Corpuscular HGB Conc 33.8 g/dl (31.0-36.0); Mean Corpuscular Hemoglobin 31.4 pg (27.0-33.0); Mean Platelet Volume 10.7 fL (9.4-12.4); Red Blood Count 4.68 X10*6/uL (4.60-5.80)
[2023-01-14 02:13] LABS: Platelet Count 135 X10*3/uL (160-400); White Blood Count 7.8 X10*3/uL (4.8-10.8)
[2023-01-14 02:33] LABS: Alanine Aminotransferase 51 U/L (0-40); Alkaline Phosphatase 89 U/L (39-117); Anion Gap 14 (12-20); Aspartate Amino Transferase 44 U/L (5-37); Bilirubin Total 0.6 mg/dL (0.0-1.0); Blood Urea Nitrogen 18 mg/dL (9-16); Calcium 9.4 mg/dL (8.4-10.2); Carbon Dioxide 26 mmol/L (22-29); Chloride 107 mmol/L (96-108); Creatinine Clr Calc Pharmacy 85.6; Estimated Glomerular Filt Rate > 60; Glucose Random 127 mg/dL (60-115); Potassium 3.7 mmol/L (3.3-5.1); Sodium 143 mmol/L (135-145); Total Protein 7.9 g/dL (6.5-8.0)
--- NOTE | 2023-01-14 02:44 | MHC.EDTECH ---
Vitals taken and EKG completed as ordered,Patient ambulated to bathroom and hat was placed, patient had 200cc of dark red blood for stool. This tech asked to come and check. RN was also made aware. Type and Screen was ordered and this tech will obtain at this time.
--- NOTE | 2023-01-14 03:00 | MHC.EDTECH ---
Labs obtained and sent to lab
[2023-01-14 03:19] LABS: Prothrombin Time 12.1 SEC (11.1-13.3)
[2023-01-14 03:21] LABS: Partial Thromboplastin Time 29.7 SEC (26.0-36.4)
--- NOTE | 2023-01-14 03:21 | ED.GIBLEED ---
HPI - GI Bleed General Chief complaint: GI Bleed Stated complaint: Rectal bleeding Time Seen by Provider: 01/14/23 02:58 Source: patient Mode of arrival: ambulatory Limitations: no limitations History of Present Illness HPI Narrative: 72-year-old male who presents emergency department for evaluation blood per rectum. Patient states that he has had 4 bloody bowel movements over the past 3 days. The patient states that he had a stroke 1 year prior he takes a blood thinner but does not know the name of the medication. He states that he also takes aspirin 1 pill twice a day as needed for arthritis and he estimates that he takes 4-6 pills per week. the patient denied abdominal pain, lightheadedness, dizziness, easy bruisability. The patient states that he is a Jehov[employer] Witness and does not want blood transfusions. I did review the patient's discharge record from 2021when he was admitted here for a stroke. patient presented with left-sided weakness. Neurology felt that the patient had a CVA related to cardiac disease. At the time of discharge he was on atorvastatin and aspirin. Related Data Home Medications Medication Instructions Recorded Confirmed rosuvastatin 20 mg tablet 20 mg PO DAILY 02/02/22 06/16/22 Previous Rx's Medication Instructions Recorded aspirin 81 mg tablet,delayed 81 mg PO DAILY #30 tabs 04/23/21 release peg 3350-electrolytes 236 240 ml PO Q10M 1 day #4,000 mL 08/03/22 gram-22.74 gram-6.74 gram-5.86 gram solution (Golytely) alfuzosin 10 mg tablet,extended 10 mg PO QAM #90 tabs 10/07/22 release 24 hr fesoterodine 8 mg tablet,extended 8 mg PO DAILY 90 days #90 tabs 12/06/22 release 24 hr (Toviaz) Allergies Allergy/AdvReac Type Severity Reaction Status Date / Time No Known Allergies Allergy Verified 08/03/22 14:18 Review of Systems Review of Systems: Yes all other systems are reviewed and are negative [facility] Past Medical History [facility] Narrative: Past medical history: Stroke 04/23/2021 with left-sided weakness felt to be secondary to carotid artery disease, overactive bladder, BPH, high cholesterol. Social history: He denies tobacco use. He drinks 1 cup of wine every 3 weeks. Denies drug use. Medical History Retinal artery branch occlusion of right eye Social History Social History Household Members: None Housing: Apartment Do you presently have visiting nurse or other home services: No Alcohol intake: current Alcohol intake frequency: 0-2 drinks per day Alcohol type: wine Patient Tobacco Use Status: Never used Tobacco Advance Directives: No Advance Directives Information Provided: Yes service: No Current occupational status: retired Physical Exam Vital Signs: Vital Signs: Last Vital Signs Temp 98.4 F 01/14/23 06:31 Pulse 122 H 01/14/23 06:31 Resp 18 01/14/23 06:31 BP 139/97 H 01/14/23 06:31 Pulse Ox 98 01/14/23 06:31 O2 Del Method Room Air 01/14/23 06:31 BMI result Body Mass Index 28.1 Vital signs were normal exam: General: Awake, alert in no distress Head: Normocephalic, atraumatic EENT: PERRL, Lids normal, sclera normal, conjunctiva normal, nose normal , ears normal, throat without erythema or exudates Neck: Supple, no adenopathy, no trachea midline or C-spine tenderness Lung: breath sounds symmetric, no wheezing, rales or rhonchi Chest: symmetric movement, nontender Heart: regular rate and rhythm, normal S1, S2 no murmurs or rubs Abdomen: soft, non-tender, nondistended, normal bowel sounds Rectal exam: bright red blood per rectum, Hemoccult-positive Back: no vertebral tenderness, no CVAT Extremities: no deformities, moves all extremities symmetrically Skin: no rashes, no lesion, normal color and warmth Neuro: Awake, alert, oriented, normal speech, cranial nerves intact, moves all extremities symmetrically Psych: Pleasant, cooperative Medications Administered Discontinued Medications Generic Name Dose Route Start Last Admin Trade Name Freq PRN Reason Stop Dose Admin Sodium Chloride 1,000 mls @ 999 mls/hr 01/14/23 05:45 01/14/23 06:22 Ns IV 01/14/23 06:45 Infused .Q1H1M AMARA Infusion Iohexol 80 ml 01/14/23 03:54 01/14/23 03:54 Iohexol 350 Mg/Ml 100 Ml Infus..Btl IV 01/14/23 03:55 80 ml ONCE ONE Administration Medical Decision Making Medical Decision Making [facility] Narrative: 72-year-old male Jehovah Witness with a history of stroke, BPH, overactive bladder,who presents emergency department for evaluation for bloody stools over the past 3 days. Patient takes aspirin for arthritis 4-6 pills per week. vital signs were normal. Abdominal exam revealed no tenderness. Rectal exam revealed bright red blood per rectum which was Hemoccult positive. Following evaluation was ordered: CBC, CMP, PT /INR, PTT, CT GI bleed abdomen pelvis with and without IV contrast. 03:38 patient's laboratory evaluation revealed a low platelet count of a [id number] otherwise patient's H&H was normal. PT/ INR PTT were also normal. 05:[address] scan with and without contrast GI bleed protocol did reveal an acute lower descending colon diverticular bleed. I did discuss this finding in the patient's presentation over tiger text with our covering basketball player, Dr. Ferrer who recommended transfer to a tertiary care facility where the patient may be able to get in to her vaginal radiology embolization. I did contact [facility] in [place] and [facility] and both facilities for close for transfer. I did discuss the patient with the [facility] transfer line and the patient was accepted as an ER to ER transfer to [facility] in [facility], excepting attending physician is Dr. Coppola. 06:19 repeat H&H at 05:54 was 13.7 and 40.5- this is approximately a 1 unit drop in H&H. Differential Diagnosis Differential Diagnoses: The differential diagnosis associated with the presentation includes Differential diagnosis includes was not limited to polyps, AVMs, internal hemorrhoids, colon cancer Admission/Observation Consideration of admission/observation: Escalation of care including admission/observation considered Lab Data MDM Lab Attestation statement: I reviewed the patient's lab results. laboratory evaluation was interpreted by me as follows: H&H was talon 14.7 and 43.5. Platelet count was low 135,000. AST and ALT were elevated 44 and 51. BUN was elevated at 18. Glucose elevated 127. AST and ALT were elevated 4451- similar elevations in the past. PT/ INR and PTT were normal. 01/14/23 05:54 01/14/23 02:03 Labs: Lab Results 01/14/23 01/14/23 01/14/23 Range/Units 02:03 02:59 03:37 WBC 7.8 (4.8-10.8) X10*3/uL RBC 4.68 (4.60-5.80) X10*6/uL Hgb 14.7 (14.0-18.0) g/dl Hct 43.5 (42.0-52.0) % MCV 92.9 (80.0-98.0) fL MCH 31.4 (27.0-33.0) pg MCHC 33.8 (31.0-36.0) g/dl RDW 12.0 (11.0-16.0) % Plt Count 135 L D (160-400) X10*3/uL MPV 10.7 (9.4-12.4) fL Absolute Nucleated RBC 0.000 (0.0-0.012) X10*3/uL Nucleated RBC % (auto) 0.0 (0.0-0.2) /100WBC PT 12.1 (11.1-13.3) SEC INR 1.0 (0.9-1.1) APTT 29.7 (26.0-36.4) SEC Sodium 143 (135-145) mmol/L Potassium 3.7 (3.3-5.1) mmol/L Chloride 107 (96-108) mmol/L Carbon Dioxide 26 (22-29) mmol/L Anion Gap 14 (12-20) BUN 18 H (9-16) mg/dL Creatinine 0.86 (0.5-1.4) mg/dL Estim Creat Clear Calc 85.6 Estimated GFR > 60 Random Glucose 127 H (60-115) mg/dL Calcium 9.4 (8.4-10.2) mg/dL Total Bilirubin 0.6 (0.0-1.0) mg/dL AST 44 H (5-37) U/L ALT 51 H (0-40) U/L Alkaline Phosphatase 89 (39-117) U/L Total Protein 7.9 (6.5-8.0) g/dL Albumin 4.0 (3.5-5.0) g/dL Stool Occult Blood POSITIVE (NEGATIVE) Blood Type O Positive Antibody Screen NEGATIVE 01/14/23 Range/Units 05:54 WBC (4.8-10.8) X10*3/uL RBC (4.60-5.80) X10*6/uL Hgb 13.7 L (14.0-18.0) g/dl Hct 40.5 L (42.0-52.0) % MCV (80.0-98.0) fL MCH (27.0-33.0) pg MCHC (31.0-36.0) g/dl RDW (11.0-16.0) % Plt Count (160-400) X10*3/uL MPV (9.4-12.4) fL Absolute Nucleated RBC (0.0-0.012) X10*3/uL Nucleated RBC % (auto) (0.0-0.2) /100WBC PT (11.1-13.3) SEC INR (0.9-1.1) APTT (26.0-36.4) SEC Sodium (135-145) mmol/L Potassium (3.3-5.1) mmol/L Chloride (96-108) mmol/L Carbon Dioxide (22-29) mmol/L Anion Gap (12-20) BUN (9-16) mg/dL Creatinine (0.5-1.4) mg/dL Estim Creat Clear Calc Estimated GFR Random Glucose (60-115) mg/dL Calcium (8.4-10.2) mg/dL Total Bilirubin (0.0-1.0) mg/dL AST (5-37) U/L ALT (0-40) U/L Alkaline Phosphatase (39-117) U/L Total Protein (6.5-8.0) g/dL Albumin (3.5-5.0) g/dL Stool Occult Blood (NEGATIVE) Blood Type Antibody Screen ABG Data Interpretation: My independent interpretation patient's 12 lead EKG done at 02:27 hours is as follows: Normal sinus rhythm rate of 98, normal DC interval, QRS duration QTC interval, no ST segment elevation, no ST segment depression, no PACs, no PVCs, nonspecific T-wave abnormalities Independent Interpretation I performed an independent interpretation of an: EKG Radiology Impression Discussion of test interpretation with radiology: I have reviewed the radiologist's reading. Radiologist Impression: CT gi bleed abd pel wo/w IVcon IMPRESSION: Diverticula of the transverse, descending and sigmoid colon. Contrast extravasation and accumulation lower descending colon consistent with active GI bleeding likely related to diverticular disease. There is mild infiltrative change along a single diverticula of the proximal descending colon possibly early diverticulitis. Nonobstructing renal calculi. Irregular liver contour possibly hepatocellular disease/early cirrhosis. 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 Prostate gland hypertrophy. Fleischner guidelines were followed. Dictated By: Curtis Garcia Critical Care Time Critical Care Time Critical Care Time: Yes Total Critical Care Time: 45 Attestation: Critical Care: The patient was critically ill with a high probability of imminent or life threatening deterioration. I spent greater than 30 minutes of discontinuous time evaluating the patient,delivering critical care at the bedside, discussing and evaluating pertinent data with consultants. Critical care time does not include time spent performing separately billable procedures or teaching. Total time spent performing critical care was 45 minutes. Discharge Plan Discharge Clinical Impression: Diverticular hemorrhage Patient Disposition: [facility] Transfer Details: [facility], [address] [place] [address], Dr Coppola Prescriptions: No Action alfuzosin 10 mg tablet extended release 24 hr 10 mg PO QAM Qty: 90 3RF fesoterodine [Toviaz] 8 mg tablet extended release 24 hr 8 mg PO DAILY 90 Days Qty: 90 1RF aspirin 81 mg Tablet,Delayed Release (Dr/Ec) 81 mg PO DAILY Qty: 30 0RF rosuvastatin 20 mg tablet 20 mg PO DAILY peg 3350-electrolytes [Golytely] 236-22.74-6.74 -5.86 gram recon soln 240 ml PO Q10M 1 Days Qty: 4000 0RF Rx Instructions: until fecal effluent is clear; do not exceed a total volume of 2,000 mL
--- NOTE | 2023-01-14 03:31 | MHC.EDTECH ---
Assisted patient to commode,patient had another bowel movement and measured at 200cc was dark blood,provider at bedside
[2023-01-14 03:52] LABS: OBS Int Ctl Valid YES; OBS1 POSITIVE (NEGATIVE)
[2023-01-14] MEDS: iohexoL 350 MG/ML 100 ML INFUS..BTL 80 ML IV (03:54)
--- NOTE | 2023-01-14 05:32 | MHC.EDTECH ---
Assisted patient to commode,pt had large bloody stool,RN and provider aware. Vitals and rounds completed.
[2023-01-14] MEDS: 0.9 % Sodium Chloride 1,000 ML 999 ML IV (05:33)
--- NOTE | 2023-01-14 05:56 | MHC.EDTECH ---
Patient urinated 150cc of urine. Repeat lab obtained and sent to lab.
[2023-01-14 06:01] LABS: Hematocrit 40.5 % (42.0-52.0); Hemoglobin 13.7 g/dl (14.0-18.0)
--- NOTE | 2023-01-14 06:03 | MHC.EDTECH ---
call out to [facility] tx line at 0521 for possible transfer per DR Rosales , declined due to not accepting GI bleeds
--- NOTE | 2023-01-14 06:04 | MHC.EDTECH ---
call out to [facility] transfer line at 0524 for possible transfer per DR Rosales, they declined due to not accepting but advised to call in the morning.
--- NOTE | 2023-01-14 06:31 | MHC.EDTECH ---
Patient urinated 300cc in urinal.
--- NOTE | 2023-01-14 06:33 | PC.NURSE ---
nurse to nurse report given to JULIAN Robbins at [facility] in [place]
--- NOTE | 2023-01-14 06:34 | MHC.EDTECH ---
Belonging list completed and copy in chart
--- NOTE | 2023-01-14 07:36 | PC.NURSE ---
assumed care of pt at 0700. pt a&o x4, pleasant, calm, and cooperative. awaiting pt transport to [place]. pt aware of plan of care. pt also gave this RN his car/house keys to give to pt's daughter (Flor) or son (Toni). awaiting TXA from pharmacy to hang before transport. pt resting on stretcher in no apparent distres. rr even/unlabored. call obrien within pt reach. plan of care ongoing.
[2023-01-14] MEDS: Tranexamic Acid 1,000 MG in 0.9 % Sodium Chloride 50 ML 360 MG IV (07:44)
== END 2023-01-14 08:02 | disposition short-term general hospital (02) ==
PROVIDERS: Student in an Organized Health Care Education/Training Program; Emergency Provider Emergency Medicine Emergency Medical Services
DX: K92.2 Gastrointestinal hemorrhage, unspecified (principal); R10.2 Pelvic and perineal pain; R11.2 Nausea with vomiting, unspecified; R00.0 Tachycardia, unspecified; Z79.899 Other long term (current) drug therapy
CPT/HCPCS: 36415; 74178; 80053; 82272; 85014; 85018; 85027; 85610; 85730; 86850; 86900; 86901; 93005; 96360; 99285; Q9967

== ENCOUNTER 2023-01-19 08:55 | Day surgery (SDC) | payer MEDICARE, SELFPAY ==
--- NOTE | 2023-01-18 12:33 | HO.ANESPROP2 ---
Documented by User: Carol Potts NP 01/18/23 12:42 HPI - Anesthesia Eval Consult details Narrative: 72yo M for Upper Endoscopy and Colonoscopy [facility] 01/14/23 with bloody stool for 3 days. Hx CVA on aspirin. Because pt Jehova's witness, and therefore no blood transfusions, pt was tx'd to [facility] for possible embolization. Per [facility] notes, admit 01/14-01/15: bleeding improved with suspected divertic bleed vs hemmorhoid bleed. H&H remained stable. Deferred EGD/[place] to outpt. Aspirin held. [facility] Active Problems Active Problems: All Active Problems (Updated 01/15/23 @ 00:00 by Background Daemon) Pre-op examination (Acute) Simple renal cyst (Acute) Nocturia (Acute) Screening PSA (prostate specific antigen) (Acute) Renal cysts, acquired, bilateral (Acute) History of stroke (Acute) OAB (overactive bladder) (Acute) BPH loc w urin obs/LUTS (Acute) Colon cancer screening (Acute) High cholesterol (Acute) History of CVA (cerebrovascular accident) without residual deficits (Acute) Increased urinary frequency (Acute) Bilateral carotid artery stenosis (Acute) Past Medical History Medical History Retinal artery branch occlusion of right eye Social History Household Members: None Housing: Apartment Do you presently have visiting nurse or other home services: No Alcohol intake: current Alcohol intake frequency: 0-2 drinks per day Alcohol type: wine Patient Tobacco Use Status: Never used Tobacco service: No Current occupational status: retired [employer] Allergies Allergy/AdvReac Type Severity Reaction Status Date / Time No Known Allergies Allergy Verified 01/26/23 09:52 Home Medications Medication Instructions Recorded Confirmed Last Taken Type rosuvastatin 20 mg tablet 20 mg PO DAILY 02/02/22 06/16/22 Unknown History Exam Exam Date and Time: January 18, 2023 1233 Pertinent Lab Results Pertinent Lab Results: Laboratory Tests 01/14/23 01/14/23 01/14/23 02:03 02:03 05:54 WBC 7.8 Hgb 13.7 L Hct 40.5 L Plt Count 135 L D Sodium 143 Potassium 3.7 Chloride 107 Carbon Dioxide 26 BUN 18 H Creatinine 0.86 Narrative Narrative: EKG 01/2023 Vent. Rate : 098 BPM Atrial Rate : 098 BPM P-R Int : 186 ms QRS Dur : 090 ms QT Int : 346 ms P-R-T Axes : 022 -49 021 degrees QTc Int : 441 ms Normal sinus rhythm Left anterior fascicular block Abnormal ECG When compared with ECG of 21-APR-2021 13:09, No significant change was found Assessment and Plan Assessment Anesthesia Assessment: Chart Reviewed Documented by User: Chris Land MD 02/03/23 17:58 PMFSH Past Medical History Medical History Retinal artery branch occlusion of right eye Functional capacity: independent ambulation Family History Family history of problems with anesthesia: No Surgical History History of Problems with Anesthesia: No Social History Household Members: None Housing: Apartment Do you presently have visiting nurse or other home services: No Alcohol intake: current Alcohol intake frequency: 0-2 drinks per day Alcohol type: wine Patient Tobacco Use Status: Never used Tobacco service: No Current occupational status: retired Meds Allergies Allergy/AdvReac Type Severity Reaction Status Date / Time No Known Allergies Allergy Verified 01/26/23 09:52 Home Medications Medication Instructions Recorded Confirmed Last Taken Type rosuvastatin 20 mg tablet 20 mg PO DAILY 02/02/22 06/16/22 Unknown History Exam Airway Mallampati Class: IV Loose/Missing/Broken Teeth: Yes Assessment and Plan Assessment Anesthesia Assessment: Anesthesia Plan Discussed Final Anesthetic Review Family History of Problems with Anesthesia: No History of Problems with Anesthesia: No NPO: Yes ASA Class: IV Final Preanesthetic Review: Meds/Allgs Chart Reviewed, Consent Obtained/Reviewed and Anes Risks/Benef Reviewed Patient Risk: Intermediate Procedure Risk: Intermediate Anesthetic Plan Anesthetic Plan: MAC: and Agree w/ Assess. and Plan Disposition: Standard PACU
--- NOTE | 2023-01-19 09:37 | MHC.SHP ---
Pre-Procedural Eval Section A Date of Service: 01/19/23 Section B Chief Complaint: GI bleeding Details of Present Illness: dark stools -on aspirin Relevant Family History (Specify if Yes): No Relevant Social History: None Present Medications: see Short Stay Collaborative assessment Medical History: Significant History (Stroke 04/23/2021 with left-sided weakness felt to be secondary to carotid artery disease, overactive bladder, BPH, high cholesterol) History of Previous Operations: No relevant previous surgery Allergies: Allergies Allergy/AdvReac Type Severity Reaction Status Date / Time No Known Allergies Allergy Verified 08/03/22 14:18 Review of Systems Sugical H&P ROS: Negative: Constitution, Cardiovascular, Respiratory, Neurological, Psychiatric, Hem-Onc, Allergic/Immunologic, Gastrointestinal, Genitourinary, Musculoskeletal, Integumentary, Endocrine and Eyes/Ears/Nose/Throat Exam Surgical H&P Exam: Normal: HEENT, Normal: Heart, Normal: Lungs, Normal: Extremities, Normal: Abdomen, Normal: Skin and Normal: Neurological Plan Diagnosis/Plan: Unchanged I have reviewed the history and physical and performed a pertinent physical examination on my patient. No changes have occurred unless specified. EGD and colonoscopy for investigation of GI bleed, seems may have been upper source Time Spent With Patient Time: Total time managing care of this patient today ____ minutes.
[2023-01-19 09:50] VITALS: BP 134/89; PULSE 86; RESP 16; TEMP 36.6; O2SAT 99; BMI 28.1
[2023-01-19 09:59] VITALS: BMI 28.1
[2023-01-19] MEDS: Lactated Ringers 1,000 ML 100 ML IVCONT (10:01)
--- NOTE | 2023-01-19 10:29 | W.PM.OPN ---
Operative Note Operative Note Date of Service: 01/19/23 Narrative: Operative Information Procedure Description: EGD, Colonoscopy Indication: Gi bleed Anesthesia: MAC FLEXIBLE TRANSORAL UPPER GASTROINTESTINAL ENDOSCOPY AND COLONOSCOPY PROCEDURE NOTE UPPER ENDOSCOPY Consent: Indications for the procedure and potential complications of bleeding, perforation, reaction to medications and missed diagnosis were discussed with the patient and informed consent was obtained. Instrument: Olympus GIF H 190 J mid size upper endoscope Monitoring: Vital signs and clinical assessment, continuous EKG monitoring, Pulse oximetry, Carbon Dioxide monitoring and blood pressure monitoring were done throughout the procedure. Procedure: The patient was placed in the left lateral decubitis position and pre-procedure medications were administered and a bite block was placed. The endoscope was inserted into the mouth and advanced under direct vision to the third part of duodenum. A careful inspection was made as the upper endoscope was withdrawn including a retroflexed examination of the proximal stomach; Findings and interventions are described below. Findings: Larynx:normal Esophagus: GE junction at 38 cm, diaphragm hiatus at 38 cm, bogginess and congestion at GEJ, bx taken Stomach: Patchy erythema and granularity. Biopsies were obtained. Grade 2 flap valve on retroflexed examination of the cardia. Duodenum: Normal bulb and descending duodenum, Intervention: Biopsies as noted above COLONOSCOPY Instrument: Olympus variable stiffness pediatric scope 190L Colonoscopy Monitoring: Vital signs and clinical assessment, continuous EKG monitoring, Pulse oximetry, Carbon Dioxide monitoring and blood pressure monitoring were done throughout the procedure. Colon withdrawal time was 9 minutes. Procedure: The patient was placed in the left lateral decubitis position and pre-procedure medications were administered. After a digital rectal examination of the ano-rectum, the video colonoscope was inserted into the rectum and advanced through the colon to the cecum/TI. The colonoscope was slowly withdrawn in a retrograde panoramic fashion and the colon mucosa was carefully examined including a retroflexed view of the rectum. Findings and interventions are described below. Procedure Difficulty:moderate due to looping, poor prep Findings: Terminal Ileum-not intubated Cecum:normal Ascending Colon: normal Transverse Colon -normal Descending Colon:normal Sigmoid Colon: mild to moderate diverticulosis Rectum: Retroflexion with small internal hemorrhoids, grade I, mildly inflammed Anorectum - normal Colon preparation: [place] Bowel Preparation Scale Right colon; 1-2 Transverse colon: 2- Left colon; 1 (0 = Unprepared colon segment with mucosa not seen due to solid stool that cannot be cleared. 1 = Portion of mucosa of the colon segment seen, but other areas of the colon segment not well seen due to staining, residual stool and/or opaque liquid. 2 = Minor amount of residual staining, small fragments of stool and/or opaque liquid, but mucosa of colon segment seen well. 3 = Entire mucosa of colon segment seen well with no residual staining, small fragments of stool or opaque liquid) Impression and Post Procedure Diagnosis: Endoscopy Findings: gastritis esophagitis Colonoscopy Findings: poor prep internal hemorrhoids diverticular disease Plan: Await Pathology results Repeat Colonoscopy in 3-6 month with compliance to prep or earlier if clinically indicated High fiber diet leaflet avoid straining at stool, epsom salts and sitz bath, anusol supps or cream If h pylori pos then treat, if neg might still benefit from PPI Above findings were reviewed with the patient and relevant handouts were provided if indicated.
[2023-01-19 11:12] VITALS: BP 90/52; PULSE 73; RESP 16; TEMP 36.6; O2SAT 97
[2023-01-19 11:27] VITALS: BP 120/79; PULSE 67; RESP 16; TEMP 36.8; O2SAT 96
== END 2023-01-19 12:23 | disposition home or self-care (01) ==
PROVIDERS: PCP Internal Medicine; Visit Provider Internal Medicine Gastroenterology
PROC: (CPT 43239; principal; 2023-01-19 11:00)
DX: Z12.11 Encounter for screening for malignant neoplasm of colon (principal); K57.30 Diverticulosis of large intestine without perforation or abscess without bleeding; K64.0 First degree hemorrhoids; K29.50 Unspecified chronic gastritis without bleeding; K92.2 Gastrointestinal hemorrhage, unspecified; B96.81 Helicobacter pylori [H. pylori] as the cause of diseases classified elsewhere; K20.80 Other esophagitis without bleeding; K44.9 Diaphragmatic hernia without obstruction or gangrene; Z98.890 Other specified postprocedural states; Z86.73 Personal history of transient ischemic attack (TIA), and cerebral infarction without residual deficits; Z79.82 Long term (current) use of aspirin; E78.00 Pure hypercholesterolemia, unspecified; Z79.899 Other long term (current) drug therapy
CPT/HCPCS: 43239; G0121; 88305; 88342

== ENCOUNTER → 2023-01-19 08:55 | Outpatient (BNV) | payer MEDICARE, SELFPAY | PROVIDERS: PCP Internal Medicine; Visit Provider Internal Medicine Gastroenterology | DX: K92.2 Gastrointestinal hemorrhage, unspecified (principal); K57.30 Diverticulosis of large intestine without perforation or abscess without bleeding; K64.0 First degree hemorrhoids; Z91.199 Patient's noncompliance with other medical treatment and regimen due to unspecified reason | CPT/HCPCS: 43239; 45378 ==

== ENCOUNTER 2023-01-26 09:41 | Outpatient (AMB) | payer MEDICARE, SELFPAY ==
--- NOTE | 2023-01-26 09:49 | A.OFFVIS_ITS ---
Intake Vital Signs 01/26/23 09:50 Height 5 ft 9 in Weight 190 lb 14.725 oz BMI 28.2 BP 121/74 Blood Pressure Location Lt brachial Position Sitting Pulse 94 Intake Visit Reasons: S/P [place]; Dr Staley Intake Note: Patient presents to in office visit today in colonoscopy follow up. CC: Patient reports doing well, denies having any GI cocerns today. 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 He tells me that he had a stroke and this had to be dealt with before he could consider colonoscopy. Now his PCP says its important to do it now. He has very little residual deficit except dizziness. He had a colonoscopy about 10 years ago and it was normal. It was here. The record shows it was in [address] Duncan He denies any bowel upper GI problems. No problems in the past with anesthesia or sedation. He denies any cardiac or respiratory problems. No ID problems. There is no known FHX of CRC or polyps. (2) Pre-op examination: Code(s): Z01.818 - Encounter for other preprocedural examination (3) H/O colonoscopy: Code(s): Z98.890 - Other specified postprocedural states Orders: Orders Comprehensive Met. Panel Today Z01.818 - Encounte r for other prepro cedural examinatio n, Z12.11 - Encoun ter for screening for malignant neop lasm of colon Complete Blood Cou nt Auto Diff Today Z01.818 - Encounte r for other prepro cedural examinatio n, Z12.11 - Encoun ter for screening for malignant neop lasm of colon Medications: New peg 3350-electroly joey 236-22.74-6.74 -5.86 gram (Golyt lolita) until feca l effluent is chad r; do not exceed a total volume of 2 ,000 mL 240 mL PO Q10M 1 day 4,000 mL 0RF Z12.11 - Encounter for screening for malignant neoplas m of colon LABS: Laboratory Tests 01/14/23 01/14/23 01/14/23 02:03 02:03 02:03 WBC 7.8 Hgb Hct MCV 92.9 MCH 31.4 Plt Count 135 L D Estimated GFR > 60 Total Bilirubin 0.6 AST 44 H ALT 51 H Alkaline Phosphata se 89 Stool Occult Blood 01/14/23 01/14/23 03:37 05:54 WBC Hgb 13.7 L Hct 40.5 L MCV MCH Plt Count Estimated GFR Total Bilirubin AST ALT Alkaline Phosphata se Stool Occult Blood POSITIVE EGD/COLONOSCOPY 01/19/23 Findings: Larynx:normal Esophagus: GE junction at 38 cm, diaphragm hiatus at 38 cm, bogginess and congestion at GEJ, bx taken Stomach: Patchy erythema and granularity. Biopsies were obtained. Grade 2 flap valve on retroflexed examination of the cardia. Duodenum: Normal bulb and descending duodenum, Findings: Terminal Ileum-not intubated Cecum:normal Ascending Colon: normal Transverse Colon -normal Descending Colon:normal Sigmoid Colon: mild to moderate diverticulosis Rectum: Retroflexion with small internal hemorrhoids, grade I, mildly inflammed Anorectum - normal Impression and Post Procedure Diagnosis: Endoscopy Findings: gastritis esophagitis Colonoscopy Findings: poor prep internal hemorrhoids diverticular disease Plan: Await Pathology results Repeat Colonoscopy in 3-6 month with compliance to prep or earlier if clinically indicated High fiber diet leaflet avoid straining at stool, epsom salts and sitz bath, anusol supps or cream If h pylori pos then treat, if neg might still benefit from PPI BIOPSY Received: 01/19/23 Diagnosis A. Stomach, biopsy: - Antral-type and oxyntic mucosa with mo derate chronic inactive inflammation. - Positive for H pylori. B. 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 - No dysplasia seen. - Squamous mucosa within normal limits CORRESPONDENCE Reviewed the notes from [facility] they did not do a colonoscopy and only monitored the patient. 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 [facility] will notify patient. On 01/18/23 @ 12:14 Robyn Martin Wrote To Robyn Martin patient having issues with transportation for tomorrows procedure- called and lvm for our transportation to see if this is possible. (he lives in [place] ) On 01/18/23 @ 09:11 Robyn Martin Wrote To Jose is he going to need clearance from PCP On 01/18/23 @ 08:55 Lashay Alejandra Wrote To Jose (2) patient scheduled tomorrow 01/19/23 [facility] removed from item. On 01/18/23 @ 08:37 Lashay Alejandra Wrote To Jose (3) noted, this will no longer be considered a screening as he is now having diagnostic symptoms On 01/18/23 @ 08:31 Kaylyn Garcia Wrote To JoseJune (3) I reviewed the notes from [facility] and he neds DONNY EGD/colonoscopy. He is a Holiness so we do not have the luxury of a transfusion if he bleeds again. Sending him to the office to see me is only a waste of time.. On 01/17/23 @ 15:29 Robyn Martin Wrote To JoseJune see below On 01/17/23 @ 14:58 Lashay Alejandra Wrote To [facility] evens is going to set up a consult, as of right now he booked for a screening if he is having a gi bleed then he should be reevaluated. Lashay Alejandra completed item. On 01/17/23 @ 10:15 Robyn Martin Wrote To [facility] this patient is schedule in April, however if he could get in sooner that wo uld be great. He recently was in ED 01/14 for GI bleed and transferred to [facility]. - [facility] sent request to obtain his records from there. 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 Called patient- having issues with aluminum boat inspector services- unable to connect. (help desk notified and aluminum boat inspector services notified) Patient understood that colonoscopy was not going to be tomorrow, looking like early February. call transferred to schedulers for more details and to be r/s. TODAY'S VISIT [place] #Maureen, Ag The procedure needs to be repeated in a few mos r/t poor prep. He says he completed the prep w/o problem, but he did eat that day because he was only given a few hours notice about his scope - so I educate him for the next one. He had HP on biopsy so this will need to be treated. He denies any upper abd pain or dyspepsia. I explain the results and advise him that we will get a WCE since there was not severe problems discovered to explain his bleed. 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 He says he was told that the medications he was put on after his stroke would constipate him, and he then changed his lifestyle to include more dietary fiber, water and exercise but he still will have some episodes of CIC. I will start MOM and advise him not to wait to long before taking it to avoid straining. He says he will struggle with CIC about twice a week. He says that about twice a year he uses mag citrate to clean out. (harsh!!). We will treat the HP incase this is causing some slow blood losses and to protect his future health. I want him to take 1 abx at a time for 2 weeks then the other to avoid problems/minimize a/e. I want to get WCE to aggressively protect his health since he is a Jehovahs Witness and we do not have the luxury of transfusions. Will use Quadruple therapy for HP and start him on MOM for CIC. Not getting a small bowel follow through prior to WCE because he had recent CT scans and no strictures or small bowel problems seen. ROV 2 weeks. [facility] Medical History Retinal artery branch occlusion of right eye Social History Household Members: None Housing: Apartment Do you presently have visiting nurse or other home services: No Alcohol intake: current Alcohol intake frequency: 0-2 drinks per day Alcohol type: wine Patient Tobacco Use Status: Never used Tobacco service: No Current occupational status: retired Review of Systems Const Denies fatigue, Denies fever(s), Reports headache(s), Denies night sweats, Denies poor appetite and Denies weight loss Eyes Details: glasses Reports requires corrective lenses ENT Reports Normal hearing present, Denies dental pain, Denies dysphagia, Reports dizziness, Reports headache(s), Denies hearing loss, Denies mouth pain, Denies odynophagia, Denies throat swelling, Denies tongue swelling and Reports other (Dentition adequate) Card Reports no additional complaints Resp Reports no additional complaints GI Denies abdominal pain, Denies melena, Denies bloating, Denies hematochezia, Reports constipation, Denies GI cramping, Denies dysphagia, Denies excessive flatus, Denies early satiety, Denies heartburn, Denies diarrhea, Denies nausea, Denies odynophagia, Denies vomiting and Denies hematemesis Skin/Breast Denies pruritus, Denies lesions, Denies rash and Denies jaundice Neuro Reports Normal hearing present, Denies Abnormal speech present, Reports dizziness, Reports headache(s) and Reports paresthesias Endo Denies fatigue Aller/Immun Denies throat swelling and Denies tongue swelling Physical Exam Vital Signs: Last Vital Signs Pulse 94 01/26/23 09:50 BP 121/74 01/26/23 09:50 BMI result Body Mass Index 28.2 Const General: cooperative, no acute distress, well developed and well groomed Nutritional Appearance: well nourished and overweight Orientation/consciousness: oriented to person, oriented to place and oriented to time Limitations: language barrier HEENT Head: Yes normocephalic and Yes atraumatic Eyes General: appearance normal, both eyes and all related structures Pupils: Equal, round and reactive pupils present Neck Neck: Yes normal visual inspection and Yes no lymphadenopathy Thyroid: Thyroid normal Resp Effort & Inspection: normal respiratory effort and able to speak in complete sentences Auscultation: clear to auscultation bilaterally Cardio Rate: regular rate Rhythm: regular rhythm Heart sounds: Normal, physiologic split S2 sound present Peripheral pulses: radial pulses present and posterior tibial pulses present GI Inspection: No distended and No Abdominal panniculus present Palpation (GI): Soft to palpation, nontender, no guarding, not rigid and No hepatosplenomegaly present Percussion: Yes normal to percussion Auscultation: normal bowel sounds Rectal Exam - Male: Yes deferred Skin General skin exam: no rashes or lesions noted, turgor normal, skin not dry, no jaundice, No spider nevi and no striae Rashes: no rashes Nails: normal Neuro General: oriented to person, oriented to place and oriented to time Cranial nerves: Yes Equal, round and reactive pupils present and Yes Normal hearing present Speech: No Abnormal speech present Extrem General: Yes normal to inspection, No clubbing, No cyanosis and No edema Psych Appearance: grossly normal and well kempt Mental Status: mental status grossly normal Speech and movement: Normal speech and movement present Affect: normal affect Attitude: cooperative Thought process: Normal thought process present and not confabulating Thought content: Normal thought content present Insight: Limited insight present (Psych) Judgement: Limited judgement present (Psych) Assessment & Plan Assessment & Plan (1) Anemia: Code(s): D64.9 - Anemia, unspecified (2) GI bleed: Code(s): K92.2 - Gastrointestinal hemorrhage, unspecified (3) Refusal of blood transfusions as patient is Holiness: Code(s): Z53.1 - Procedure and treatment not carried out because of patient's decision for reasons of belief and group pressure (4) Constipation: Code(s): K59.00 - Constipation, unspecified (5) H. pylori infection: Code(s): A04.8 - Other specified bacterial intestinal infections Plan [place] #Maureen, Live The procedure needs to be repeated in a few mos r/t poor prep. He says he completed the prep w/o problem, but he did eat that day because he was only given a few hours notice about his scope - so I educate him for the next one. He had HP on biopsy so this will need to be treated. He denies any upper abd pain or dyspepsia. I explain the results and advise him that we will get a WCE since there was not severe problems discovered to explain his bleed. 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 He says he was told that the medications he was put on after his stroke would constipate him, and he then changed his lifestyle to include more dietary fiber, water and exercise but he still will have some episodes of CIC. I will start MOM and advise him not to wait to long before taking it to avoid straining. He says he will struggle with CIC about twice a week. He says that about twice a year he uses mag citrate to clean out. (harsh!!). We will treat the HP incase this is causing some slow blood losses and to protect his future health. I want him to take 1 abx at a time for 2 weeks then the other to avoid problems/minimize a/e. I want to get WCE to aggressively protect his health since he is a Jehovahs Witness and we do not have the luxury of transfusions. Will use Quadruple therapy for HP and start him on MOM for CIC. Not getting a small bowel follow through prior to WCE because he had recent CT scans and no strictures or small bowel problems seen. ROV 2 weeks. Orders: Orders Capsule Endoscopy -GI Use Only 01/26/23 K92.2 - Gastrointestinal hemorrhage, unspecified, D64.9 - Anemia, unspecified, Z53.1 - Procedure and treatment not carried out because of patient's decision for reasons of belief and group pressure Medications: New magnesium hydroxide (Milk of Magnesia) 5 mL PO BEDTIME 355 mL 6RF K59.00 - Constipation, unspecified tetracycline 500 mg PO Q12H 28 caps 0RF 14 days A04.8 - Other specified bacterial intestinal infections bismuth subsalicylate (Bismuth) 2 tabs PO QID 112 tabs 0RF 14 days A04.8 - Other specified bacterial intestinal infections peg 3350-electrolytes 236-22.74-6.74 -5.86 gram (Golytely) until fecal effluent is clear; do not exceed a total volume of 2,000 mL 240 mL PO Q10M 4,000 mL 0RF 1 day Z12.11 - Encounter for screening for malignant neoplasm of colon metronidazole 1,000 mg (2 x 500 mg) PO BID 56 tabs 0RF 14 days A04.8 - Other specified bacterial intestinal infections omeprazole 20 mg PO BID 60 caps 0RF 30 days A04.8 - Other specified bacterial intestinal infections bisacodyl (Dulcolax (bisacodyl)) colonoscopy prep 10 mg (2 x 5 mg) PO BEDTIME 4 tabs 0RF 2 days K92.2 - Gastrointestinal hemorrhage, unspecified Coding Level of Care Code Est Pt Level 4 (43022) Diagnoses Anemia D64.9 GI bleed K92.2 Refusal of blood transfusions as patient is Holiness Z53.1 Constipation K59.00 H. pylori infection A04.8
[2023-01-26 09:50] VITALS: BP 121/74; PULSE 94; BMI 28.2
== END 2023-01-26 10:47 | disposition home or self-care (01) ==
PROVIDERS: PCP Family Medicine; Visit Provider Nurse Practitioner
DX: D64.9 Anemia, unspecified (principal); K92.2 Gastrointestinal hemorrhage, unspecified; Z53.1 Procedure and treatment not carried out because of patient's decision for reasons of belief and group pressure; K59.00 Constipation, unspecified; A04.8 Other specified bacterial intestinal infections
CPT/HCPCS: 99214

== ENCOUNTER → 2023-01-26 09:41 | Outpatient (BNVA) | payer MEDICARE, SELFPAY | PROVIDERS: PCP Family Medicine; Visit Provider Nurse Practitioner | DX: K59.00 Constipation, unspecified (principal); K92.2 Gastrointestinal hemorrhage, unspecified; D64.9 Anemia, unspecified; A04.8 Other specified bacterial intestinal infections | CPT/HCPCS: 99212 ==

== ENCOUNTER 2023-02-01 13:57 | Outpatient (REF) | payer MEDICARE, SELFPAY ==
--- NOTE | ~2023-02-01 | US_ITS ---
EXAMINATION: US EXTRACRANIAL CAROTID DUPLEX, BILATERAL CLINICAL INFORMATION: Occlusion and stenosis of carotid arteries. COMPARISON: Carotid ultrasound 11/25/2021. TECHNIQUE: Real-time ultrasound and Doppler techniques (integrating B-mode 2-D vascular images, Doppler spectral analysis and color-flow Doppler imaging) were utilized to interrogate the extracranial carotid arteries, the vertebral arteries and proximal subclavian arteries bilaterally. The degree of stenosis is determined by criteria similar to NASCET. FINDINGS: Right Side: 1. There is mild atherosclerotic plaque seen in the bifurcation/proximal ICA region. 2. The common carotid artery PSV proximally is 66 cm/s and distally 75 cm/s. 3. The proximal internal carotid artery velocities are 76 cm/s systolic and 23 cm/s diastolic. 4. The proximal external carotid artery PSV is 67 cm/s. 5. The vertebral artery shows antegrade flow. 6. The subclavian artery waveforms are biphasic. Left Side: 1. There is severe atherosclerotic plaque seen in the bifurcation/proximal ICA region. 2. The common carotid artery PSV proximally is 50 cm/s and distally 44 cm/s. 3. The proximal internal carotid is chronically occluded. 4. The proximal external carotid artery PSV is 74 cm/s. 5. The vertebral artery shows and flow. 6. The subclavian artery waveforms are biphasic. US/US carotid duplex BI IMPRESSION: 1. RIGHT: Minimal, non-hemodynamically significant stenosis of the proximal right internal carotid artery corresponding to a 0-49% stenosis by velocity criteria. 2. LEFT: Chronically occluded. 3. There is no change in the category severity of disease when compared to the previous study dated 11/25/2021.
== END 2023-02-01 13:58 | disposition home or self-care (01) ==
LOC: HO.US 13:57
PROVIDERS: PCP Internal Medicine; Visit Provider Surgery Vascular Surgery
DX: I65.23 Occlusion and stenosis of bilateral carotid arteries (principal)
CPT/HCPCS: 93880

== ENCOUNTER 2023-02-09 15:02 | Outpatient (AMB) | payer MEDICARE, SELFPAY ==
--- NOTE | 2023-02-09 15:07 | A.OFFVIS_ITS ---
Intake Vital Signs 02/09/23 15:08 Height 5 ft 9 in Weight 194 lb 0.108 oz BMI 28.6 BP 113/79 Blood Pressure Location Rt brachial Position Sitting Pulse 88 Intake Visit Reasons: 2 week follow up HP, GIB, CIC Intake Note: Patient returns to in office visit today in follow up of H pylori and CIC. CC:Patient reports he has been taking MOM and that works well for constipation. He states that last 3 BMs stools were black. Patient reports he completes abx course today. Allergies No Known Allergies Allergy (Verified 03/16/23 11:55) HPI 2 week follow up HP, GIB, CIC HPI Details Macedonian #Maureen, Live The procedure needs to be repeated in a few mos r/t poor prep. He says he completed the prep w/o problem, but he did eat that day because he was only given a few hours notice about his scope - so I educate him for the next one. He had HP on biopsy so this will need to be treated. He denies any upper abd pain or dyspepsia. I explain the results and advise him that we will get a WCE since there was not severe problems discovered to explain his bleed. 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 He says he was told that the medications he was put on after his stroke would constipate him, and he then changed his lifestyle to include more dietary fiber, water and exercise but he still will have some episodes of CIC. I will start MOM and advise him not to wait to long before taking it to avoid straining. He says he will struggle with CIC about twice a week. He says that about twice a year he uses mag citrate to clean out. (harsh!!). We will treat the HP incase this is causing some slow blood losses and to protect his future health. I want him to take 1 abx at a time for 2 weeks then the other to avoid problems/minimize a/e. I want to get WCE to aggressively protect his health since he is a [employer] and we do not have the luxury of transfusions. Will use Quadruple therapy for HP and start him on MOM for CIC. Not getting a small bowel follow through prior to WCE because he had recent CT scans and no strictures or small bowel problems seen. ROV 2 weeks. Assessment & Plan (1) Anemia: Code(s): D64.9 - Anemia, unspecified (2) GI bleed: Code(s): K92.2 - Gastrointestinal hemorrhage, unspecified (3) Refusal of blood transfusions as pat franklin is Syn[employer]: Code(s): Z53.1 - Procedure and treatment not carried out because of patient's decision for reasons of belief and group pressure (4) Constipation: Code(s): K59.00 - Constipation, unspecified (5) H. pylori infection: Code(s): A04.8 - Other specified bacterial intestinal infections Orders: Orders Capsule Endoscopy -GI Use Only Today D64.9 - Anemia, un specified, K92.2 - Gastrointestinal hemorrhage, unspec ified, Z53.1 - Pro cedure and treatme nt not carried out because of patien t's decision for r easons of belief a nd group pressure Medications: New magnesium hydroxid e (Milk of Magnesi a) 5 mL PO BEDTIME 3 55 mL 6RF K59.00 - Constipat ion, unspecified tetracycline 500 mg PO Q12H 14 days 28 caps 0RF A04.8 - Other spec ified bacterial in testinal infection s bismuth subsalicyl ate (Bismuth) 2 tabs PO QID 14 days 112 tabs 0RF A04.8 - Other spec ified bacterial in testinal infection s peg 3350-electroly joey 236-22.74-6.74 -5.86 gram (Golyt lolita) until feca l effluent is chad r; do not exceed a total volume of 2 ,000 mL 240 mL PO Q10M 1 day 4,000 mL 0RF Z12.11 - Encounter for screening for malignant neoplas m of colon metronidazole 1,000 mg (2 x 500 mg) PO BID 14 days 56 tabs 0RF A04.8 - Other spec ified bacterial in testinal infection s omeprazole 20 mg PO BID 30 d ays 60 caps 0RF A04.8 - Other spec ified bacterial in testinal infection s bisacodyl (Dulcola x (bisacodyl)) colonoscopy prep 10 mg (2 x 5 mg) P O BEDTIME 2 days 4 tabs 0RF K92.2 - Gastrointe stinal hemorrhage, unspecified WCE COLONOSCOPY BIOPSY CORRESPONDENCE On 01/26/23 @ 13:09 Gely Cooney Wrote To Gely Cooney JACQUIE faxed Gely Cooney completed item. On 01/26/23 @ 10:16 JoseKaylyn Wrote To Susannah Kilgore I need to order a capsule endoscopy and have not done this here before, how do I proceed? Please advise On 01/26/23 @ 11:18 Lashay Alejandra Wrote To [facility] Lashay Alejandra completed item. On 01/26/23 @ 11:18 Lashay Alejandra Wrote To [facility] there is already an alert in the system as this is a duplicate msg. On 01/26/23 @ 10:30 Kaylyn Garcia Wrote To [facility] Needs a repeat scope in 3-6 mos from this month per endoscopist for GIB TODAY'S VISIT Estonian #Yordy He will complete the quad therapy after today. He tolerated them okay, but did have some dizziness. BUT then he seems to indicate that one was not insurance covered, and he does not know names, We will have to call the pharmacy. He say his urine is a different color, and he did have some black BM's - I explain that the bismuth chews cause the black stools and this is harmless. He is on a new medicine for noc urinary frequency as well - this is the one that likely is responsible for the urine color change. There is some medication confusion confounding his reporting. In the end, the tetra was not covered so he only just completed the flagyl. Will give doxy as this is covered to get today. His hb/hct has dropped a little, will continue to monitor. ROV 4-5 weeks [facility] Medical History Retinal artery branch occlusion of right eye Social History Household Members: None Housing: Apartment Do you presently have visiting nurse or other home services: No Alcohol intake: current Alcohol intake frequency: 0-2 drinks per day Alcohol type: wine Patient Tobacco Use Status: Never used Tobacco service: No Current occupational status: retired Review of Systems Const Denies fatigue, Denies fever(s), Denies night sweats, Denies poor appetite and Denies weight loss ENT Reports Normal hearing present, Denies dental pain, Denies dysphagia, Denies hearing loss, Denies mouth pain, Denies odynophagia, Denies throat swelling, Denies tongue swelling and Reports other (Dentition adequate) Card Reports no additional complaints Resp Reports no additional complaints GI Denies abdominal pain, Reports melena, Denies bloating, Denies hematochezia, Denies constipation, Denies GI cramping, Denies dysphagia, Denies excessive flatus, Denies early satiety, Denies heartburn, Denies diarrhea, Denies nausea, Denies odynophagia, Denies vomiting and Denies hematemesis Details: Change in urine color Reports nocturia Skin/Breast Denies pruritus, Denies lesions, Denies rash and Denies jaundice Neuro Reports Normal hearing present and Denies Abnormal speech present Endo Denies fatigue Aller/Immun Denies throat swelling and Denies tongue swelling Physical Exam Vital Signs: Last Vital Signs Pulse 88 02/09/23 15:08 BP 113/79 02/09/23 15:08 BMI result Body Mass Index 28.6 Const General: cooperative, no acute distress, well developed and well groomed Nutritional Appearance: average body habitus and well nourished Orientation/consciousness: oriented to person, oriented to place and oriented to time Limitations: language barrier HEENT Head: Yes normocephalic and Yes atraumatic Eyes General: appearance normal, both eyes and all related structures Pupils: Equal, round and reactive pupils present Neck Neck: Yes normal visual inspection and Yes no lymphadenopathy Thyroid: Thyroid normal Resp Effort & Inspection: normal respiratory effort and able to speak in complete sentences Auscultation: clear to auscultation bilaterally Cardio Rate: regular rate Rhythm: regular rhythm Heart sounds: Normal, physiologic split S2 sound present Peripheral pulses: radial pulses present and posterior tibial pulses present GI Inspection: No distended and No Abdominal panniculus present Palpation (GI): Soft to palpation, nontender, no guarding, not rigid and No hepatosplenomegaly present Percussion: Yes normal to percussion Auscultation: normal bowel sounds Rectal Exam - Male: Yes deferred Skin General skin exam: no rashes or lesions noted, turgor normal, skin not dry, no jaundice, No spider nevi and no striae Rashes: no rashes Nails: normal Neuro General: oriented to person, oriented to place and oriented to time Cranial nerves: Yes Equal, round and reactive pupils present and Yes Normal hearing present Speech: No Abnormal speech present Extrem General: Yes normal to inspection, No clubbing, No cyanosis and No edema Psych Appearance: grossly normal and well kempt Mental Status: mental status grossly normal Speech and movement: Normal speech and movement present Affect: normal affect Attitude: cooperative Thought process: Normal thought process present and not confabulating Thought content: Normal thought content present Insight: Limited insight present (Psych) Judgement: Limited judgement present (Psych) Assessment & Plan Assessment & Plan (1) H. pylori infection: Code(s): A04.8 - Other specified bacterial intestinal infections Plan Estonian #Yordy He will complete the quad therapy after today. He tolerated them okay, but did have some dizziness. BUT then he seems to indicate that one was not insurance covered, and he does not know names, We will have to call the pharmacy. He say his urine is a different color, and he did have some black BM's - I explain that the bismuth chews cause the black stools and this is harmless. He is on a new medicine for noc urinary frequency as well - this is the one that likely is r esponsible for the urine color change. There is some medication confusion confounding his reporting. In the end, the tetra was not covered so he only just completed the flagyl. Will give doxy as this is covered to get today. His hb/hct has dropped a little, will continue to monitor. ROV 4-5 weeks Medications: New doxycycline hyclate 100 mg PO BID 28 caps 0RF 14 days A04.8 - Other specified bacterial intestinal infections Discontinued tetracycline Discontinued Reason: Insurance Denied 500 mg PO Q12H 14 days 28 caps 0RF A04.8 - Other specified bacterial intestinal infections Coding Level of Care Code Est Pt Level 3 (55340) Diagnoses H. pylori infection A04.8
[2023-02-09 15:08] VITALS: BP 113/79; PULSE 88; BMI 28.6
== END 2023-02-09 16:40 | disposition home or self-care (01) ==
PROVIDERS: PCP Family Medicine; Visit Provider Nurse Practitioner
DX: A04.8 Other specified bacterial intestinal infections (principal)
CPT/HCPCS: 99213

== ENCOUNTER → 2023-02-09 15:02 | Outpatient (BNVA) | payer MEDICARE, SELFPAY | PROVIDERS: PCP Family Medicine; Visit Provider Nurse Practitioner | DX: A04.8 Other specified bacterial intestinal infections (principal) | CPT/HCPCS: 99212 ==

== ENCOUNTER 2023-02-17 12:59 | Outpatient (AMB) | payer MEDICARE, SELFPAY ==
[2023-02-17 13:06] VITALS: BMI 31.3
--- NOTE | 2023-02-17 13:06 | A.OFFVIS_ITS ---
Intake Vital Signs 02/17/23 13:06 Height 5 ft 9 in Weight 212 lb BMI 31.3 Intake Visit Reasons: 1 yr follow up carotid US 01/14/23 Intake Note: 1 yr follow up carotid stenosis US 01/14/2023. Pt states some loss of balance, no blurred vision. Fast Food Cashier Required: Yes Fast Food Cashier Language: Oral Health Therapist Name: Anabell [id number] Information Interpreted: clinical only Allergies No Known Allergies Allergy (Verified 02/17/23 13:09) HPI 1 yr follow up carotid US 01/14/23 HPI Details 71-year-old gentleman presents for [facility] follow-up. He was originally worked up for some right arm weakness. Subsequently was discovered to have left carotid occlusion. He now presents for routine surveillance follow-up. Of note in the interim he is being worked up by GI for H pylori infection. [facility] Medical History Retinal artery branch occlusion of right eye Social History Household Members: None Housing: Apartment Do you presently have visiting nurse or other home services: No Alcohol intake: current Alcohol intake frequency: 0-2 drinks per day Alcohol type: wine Patient Tobacco Use Status: Never used Tobacco service: No Current occupational status: retired Review of Systems Const All systems reviewed & are unremarkable except as noted in HPI and below Reports no additional complaints ENT Reports Normal hearing present Card Denies chest pain, Denies chest pain at rest, Denies chest pain with activity and Denies pedal edema Resp Denies cough GI Denies abdominal pain Musc Denies abnormal gait, Denies muscle cramps and Denies radiating pain into limb Skin/Breast Denies skin ulcer and Denies wounds Neuro Reports Normal hearing present and Denies abnormal gait Psych Reports no additional complaints Physical Exam Vital Signs: BMI result Body Mass Index 31.3 Const General: cooperative, healthy appearing and comfortable Orientation/consciousness: oriented to person, oriented to place and oriented to time HEENT Head: Yes normal to inspection Neck Neck: Yes normal visual inspection Carotids: no bruits Chest Chest palpation & inspection: normal inspection of the chest Resp Effort & Inspection: normal respiratory effort and able to speak in complete sentences Auscultation: clear to auscultation bilaterally, no crackles, no rales, no rhonchi and no wheezes Cardio Rate: regular rate Rhythm: regular rhythm Heart sounds: S1 normal heart sound present and S2 normal heart sound present Bruits: no carotid bruits Peripheral pulses: Peripheral pulses 2+ throughout GI Inspection: Yes normal to inspection Skin Wounds: no wounds Hair: normal Neuro General: oriented to person, oriented to place and oriented to time Cranial nerves: Yes CN's II-XII intact bilaterally and Yes Normal hearing present Cognition (Neuro): normal cognition Motor exam (neuro): 5/5 motor strength present throughout Extrem Other: venous exam: No significant superficial varicosities or spider telangiectasias, minimal edema General: No clubbing, No cyanosis and No edema Psych Appearance: grossly normal Mental Status: mental status grossly normal Speech and movement: Normal speech and movement present Results Reviewed Results Reviewed: Carotid ultrasound dated 02/01/2023 demonstrates right-sided 0-49 with a peak systolic velocity of 76 and known left-sided occlusion. Assessment & Plan Assessment & Plan (1) Bilateral carotid artery stenosis: Code(s): I65.23 - Occlusion and stenosis of bilateral carotid arteries Plan: In short patient has known carotid occlusion. We have reviewed signs and symptoms of a stroke. We also discussed risk factor modification inclusive a healthy diet low in cholesterol. The patient will follow up with us with surveillance ultrasound of the carotids 1 year. Should there be any changes or signs or symptoms of a stroke we will be happy to see them back sooner. Thank you for allowing us to participate in this patient's care. If there are any questions or concerns please do not hesitate to contact us. Orders: Orders US carotid duplex BI 364 Days I65.23 - Occlusion and stenosis of bilateral carotid arteries Coding Level of Care Code Est Pt Level 4 (68265) Diagnoses Bilateral carotid artery stenosis I65.23
== END 2023-02-17 13:20 | disposition home or self-care (01) ==
PROVIDERS: PCP Family Medicine; Visit Provider Surgery Vascular Surgery
DX: I65.23 Occlusion and stenosis of bilateral carotid arteries (principal)
CPT/HCPCS: 99213

== ENCOUNTER → 2023-02-17 12:59 | Outpatient (BNVA) | payer MEDICARE, SELFPAY | PROVIDERS: PCP Family Medicine; Visit Provider Surgery Vascular Surgery | DX: I65.23 Occlusion and stenosis of bilateral carotid arteries (principal) | CPT/HCPCS: 99212 ==

== ENCOUNTER 2023-02-25 13:27 | Outpatient (AMB) | payer MEDICARE, SELFPAY ==
[2023-02-25 13:31] VITALS: BMI 31.3
--- NOTE | 2023-02-25 13:31 | A.OFFVIS_ITS ---
Intake Vital Signs 02/25/23 13:31 02/25/23 14:03 Height 5 ft 9 in Weight 212 lb BMI 31.3 31.3 Intake Visit Reasons: BPH- follow up Intake Note: Don 72 yr old male presents today for his BHP follow up visit. Urine sample obtained in office today. Allergies No Known Allergies Allergy (Verified 02/25/23 13:32) [facility] Medical History Retinal artery branch occlusion of right eye Social History Household Members: None Housing: Apartment Do you presently have visiting nurse or other home services: No Alcohol intake: current Alcohol intake frequency: 0-2 drinks per day Alcohol type: wine Patient Tobacco Use Status: Never used Tobacco service: No Current occupational status: retired Physical Exam Vital Signs: BMI result Body Mass Index 31.3 Office Procedures Post Void Residual Post Residual Void Post Void Residual (PVR): 0 [id number] Void Residual by ultrasound Results AMB Urinalysis, Automated UA Leukoctes 15 Chandrika/uL Last Edit by Geovanny Cooney on 02/25/23 13:56 UA Nitrite Negative Last Edit by Geovanny Cooney on 02/25/23 13:56 UA Urobilinogen 0.2 mg/dL Last Edit by Geovanny Cooney on 02/25/23 13:5 6 UA Protein 30 mg/dL Last Edit by Geovanny Cooney on 02/25/23 13:56 UA pH 6.5 Last Edit by Geovanny Cooney on 02/25/23 13:56 UA Blood 10 Brendan/uL Last Edit by Geovanny Cooney on 02/25/23 13:56 UA Specific [place] 1.020 Last Edit by Geovanny Cooney on 02/25/23 13: 56 UA Ketone Negative Last Edit by Geovanny Cooney on 02/25/23 13:56 UA Bilirubin 0 mg/dL Last Edit by Geovanny Cooney on 02/25/23 13:56 UA Glucose 0 mg/dL Last Edit by Geovanny Cooney on 02/25/23 13:56 Results Reviewed Results Reviewed: Laboratory Last Values Urine pH (Auto) 6.5 02/25/23 13:36 Specific [place] (Auto) 1.020 02/25/23 13:36 Urine Protein (Auto) 30 mg/dL 02/25/23 13:36 Glucose (UA)(Auto) 0 mg/dL 02/25/23 13:36 Urine Ketones (Auto) Negative 02/25/23 13:36 Urine Blood (Auto) 10 Brendan/uL 02/25/23 13:36 Urine Nitrite (Auto) Negative 02/25/23 13:36 Urine Bilirubin (Auto) 0 mg/dL 02/25/23 13:36 Urine Urobilinogen (Auto) 0.2 mg/dL 02/25/23 13:36 Leukocyte Esterase (Auto) 15 Chandrika/uL 02/25/23 13:36 Assessment & Plan Assessment & Plan Orders: Orders AMB Urinalysis Automated Today R35.1 - Nocturia AMB Post Void Residual by ultrasound Today N40.1 - Benign prostatic hyperplasia with lower urinary tract symptoms Coding CPT Codes Post Residual Void - PVR CPT Code: 42936-[id number] Void Residual by ultrasound ([id number])
--- NOTE | 2023-02-25 14:02 | MHC.OFFVIS ---
Intake Vital Signs 02/25/23 13:31 02/25/23 14:03 Height 5 ft 9 in Weight 212 lb BMI 31.3 31.3 Intake Visit Reasons: BPH- follow up Allergies No Known Allergies Allergy (Verified 03/16/23 11:55) HPI HPI Comments History of Present Illness Details 02/25/23--Don is a 72-year-old male who is here for follow-up for OAB symptoms and BPH. Co-morbidity- history of stroke. Here in follow up, had some imaging done that I reviewed, CT angiogram. He is prescribed Toviaz 5 mg and Alfuzosin 10 mg. He states he is voiding without difficulty. nocturia episodes 2-3 times per night. I have reviewed CAT scan results with the patient- 01/14/23-KIDNEYS AND URETERS: The kidneys are normal in size, and attenuation. There are scattered bilateral renal calculi measuring up to 3 mm lower pole right kidney. There is no hydronephrosis. Multiple bilateral renal cysts are noted measuring up to 6.3 cm upper pole left kidney. Review of chart: Results: Renal US results reviewed?03/31/2022-- Suggestive of a small stone of the lower pole of the left kidney. Benign, Bosniak category 1 and category 2 cysts of the kidneys. Mild prostatomegaly. Postvoid bladder residual of 25 mL. Bladder US results reviewed?06/07/22-- Suggestive of uunts-iy-hordmyuy postvoid residual bladder volume and moderate prostate enlargement. Labs reviewed--PSA--06/22/2021--1.91. Plan: 02/25/23-- Continue taking Toviaz 5 mg and Alfuzosin 10 mg. Metabolic workup, 24 hr urine, serum Ca, PTH [facility] Medical History Retinal artery branch occlusion of right eye Social History Household Members: None Housing: Apartment Do you presently have visiting nurse or other home services: No Alcohol intake: current Alcohol intake frequency: 0-2 drinks per day Alcohol type: wine Patient Tobacco Use Status: Never used Tobacco service: No Current occupational status: retired Review of Systems Const Reports no additional complaints Eyes Reports no additional complaints ENT Reports no additional complaints Card Denies dyspnea Resp Denies cough and Denies dyspnea GI Reports no additional complaints Musc Reports no additional complaints Skin/Breast Denies rash and Denies unusual bruising Neuro Reports no additional complaints Psych Reports no additional complaints Endo Reports no additional complaints David/Lymph Reports no additional complaints Aller/Immun Reports no additional complaints Physical Exam Vital Signs: BMI result Body Mass Index 31.3 Office Procedures Post Void Residual Post Residual Void Post Void Residual (PVR): 0 25220-Ueca Void Residual by ultrasound Results AMB Urinalysis, Automated UA Leukoctes 15 Chandrika/uL Last Edit by Geovanny Cooney on 02/25/23 13:56 UA Nitrite Negative Last Edit by Geovanny Cooney on 02/25/23 13:56 UA Urobilinogen 0.2 mg/dL Last Edit by Geovanny Cooney on 02/25/23 13:56 UA Protein 30 mg/dL Last Edit by Geovanny Cooney on 02/25/23 13:56 UA pH 6.5 Last Edit by Geovanny Cooney on 02/25/23 13:56 UA Blood 10 Brendan/uL Last Edit by Geovanny Cooney on 02/25/23 13:56 UA Specific Hecker 1.020 Last Edit by Geovanny Cooney on 02/25/23 13:56 UA Ketone Negative Last Edit by Geovanny Cooney on 02/25/23 13:56 UA Bilirubin 0 mg/dL Last Edit by Geovanny Cooney on 02/25/23 13:56 UA Glucose 0 mg/dL Last Edit by Geovanny Cooney on 02/25/23 13:56 Results Reviewed Results Reviewed: Laboratory Last Values Urine pH (Auto) 6.5 02/25/23 13:36 Specific Hecker (Auto) 1.020 02/25/23 13:36 Urine Protein (Auto) 30 mg/dL 02/25/23 13:36 Glucose (UA)(Auto) 0 mg/dL 02/25/23 13:36 Urine Ketones (Auto) Negative 02/25/23 13:36 Urine Blood (Auto) 10 Brendan/uL 02/25/23 13:36 Urine Nitrite (Auto) Negative 02/25/23 13:36 Urine Bilirubin (Auto) 0 mg/dL 02/25/23 13:36 Urine Urobilinogen (Auto) 0.2 mg/dL 02/25/23 13:36 Leukocyte Esterase (Auto) 15 Chandrika/uL 02/25/23 13:36 Date of Service: 01/14/23 EXAMINATION: CT ANGIOGRAM ABDOMEN AND PELVIS CLINICAL INFORMATION: GI bleed. COMPARISON: None available. TECHNIQUE: Multidetector volumetric imaging was performed from the lower chest through the abdomen to the pubic symphysis following the administration of 80 mL Omnipaque 350 intravenous contrast. No contrast reaction reported Sagittal, coronal, and MIP oblique sagittal reformatted images were obtained on the CT workstation, uploaded to PACS, and reviewed. This CT examination was performed using dose optimization techniques as appropriate, variously including the following: *Automated exposure control *Adjustment of mA and/or kV according to patient size (this includes techniques or standardized protocols for targeted exams where dose is matched to indication/reason for exam; i.e. extremities or head) *Use of iterative reconstruction technique DLP: 1699 mGy-cm FINDINGS: LUNG BASES: There is minimal scarring at the right lung base. LIVER, GALLBLADDER, AND BILIARY TREE: The liver is slightly irregular in contour. No focal hepatic lesion or biliary ductal dilatation is present. The gallbladder is unremarkable with no evidence of radiopaque gallstones, gallbladder wall thickening, or obvious pericholecystic inflammatory changes. PANCREAS: Unremarkable. SPLEEN: Unremarkable. ADRENAL GLANDS: Unremarkable. KIDNEYS AND URETERS: The kidneys are normal in size, and attenuation. There are scattered bilateral renal calculi measuring up to 3 mm lower pole right kidney. There is no hydronephrosis. Multiple bilateral renal cysts are noted measuring up to 6.3 cm upper pole left kidney. BLADDER: Unremarkable. GASTROINTESTINAL TRACT: There are diverticula of the transverse, descending and the sigmoid colon. There is mild infiltrative change along a proximal descending colonic diverticula. There is contrast extravasation lower descending colon with contrast accumulation on delayed imaging. The appendix is visualized and is within normal limits. ABDOMINAL WALL: There is a small umbilical hernia containing fat. LYMPH NODES: Normal. VASCULAR: There is atherosclerotic plaque of the abdominal aorta with an infrarenal bulge measuring up to 2.4 cm. 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 PELVIC VISCERA: There is prostate gland hypertrophy. OSSEOUS STRUCTURES: There is diffuse gzvv-lq-fdesfzts thoracolumbar disc degenerative change. There is a likely chronic compression fracture of T12. IMPRESSION: Diverticula of the transverse, descending and sigmoid colon. Contrast extravasation and accumulation lower descending colon consistent with active GI bleeding likely related to diverticular disease. There is mild infiltrative change along a single diverticula of the proximal descending colon possibly early diverticulitis. Nonobstructing renal calculi. Irregular liver contour possibly hepatocellular disease/early cirrhosis. 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 Prostate gland hypertrophy. Assessment & Plan Assessment & Plan (1) Simple renal cyst: Code(s): N28.1 - Cyst of kidney, acquired (2) OAB (overactive bladder): Code(s): N32.81 - Overactive bladder (3) BPH loc w urin obs/LUTS: Code(s): N40.1 - Benign prostatic hyperplasia with lower urinary tract symptoms (4) Bilateral kidney stones: Code(s): N20.0 - Calculus of kidney Plan Continue taking Toviaz 5 mg and Alfuzosin 10 mg. Metabolic workup, 24 hr urine, serum Ca, PTH Orders: Orders AMB Urinalysis Automated 02/25/23 R35.1 - Nocturia AMB Post Void Residual by ultrasound 02/25/23 N40.1 - Benign prostatic hyperplasia with lower urinary tract symptoms Patient Instructions: The patient had an opportunity to ask questions regarding treatment plan. All questions were answered. Imaging, Laboratory studies and physical exam results were discussed and reviewed in detail. No major barriers to understanding were identified. The patient expressed understanding and agreement with the above treatment plan. The patient is aware they should contact our office by phone for worsening of their current condition or the appearance of new symptoms. Compliance is encouraged with any medications and followup testing that is ordered. It is a privilege to be allowed the opportunity to participate in the urologic care of your patient. If you have any questions or concerns regarding treatment for the above conditions please do not hesitate to contact me. The office telephone contact is [phone]. This note is constructed in part using voice recognition software. While every effort has been made to ensure accuracy cable engineer errors may have been included. Yours sincerely, Thad Scott MD Coding Level of Care Code Est Pt Level 4 (24693) Diagnoses Simple renal cyst N28.1 OAB (overactive bladder) N32.81 BPH loc w urin obs/LUTS N40.1 Bilateral kidney stones N20.0 CPT Codes Post Residual Void - PVR CPT Code: 86310-Eepy Void Residual by ultrasound ([id number])
[2023-02-25 14:03] VITALS: BMI 31.3
== END 2023-02-25 14:35 | disposition home or self-care (01) ==
PROVIDERS: PCP Family Medicine; Visit Provider Urology
DX: N28.1 Cyst of kidney, acquired (principal); N32.81 Overactive bladder; N40.1 Benign prostatic hyperplasia with lower urinary tract symptoms; N20.0 Calculus of kidney
CPT/HCPCS: 99214

== ENCOUNTER → 2023-02-25 13:27 | Outpatient (BNVA) | payer MEDICARE, SELFPAY | PROVIDERS: PCP Family Medicine; Visit Provider Urology | DX: N28.1 Cyst of kidney, acquired (principal); N40.1 Benign prostatic hyperplasia with lower urinary tract symptoms; N32.81 Overactive bladder; N20.0 Calculus of kidney | CPT/HCPCS: 51798; 81003; 99212 ==

== ENCOUNTER 2023-03-03 13:26 | Outpatient (REF) | payer MEDICARE, SELFPAY ==
[2023-03-03 15:28] LABS: Anion Gap 14 (12-20); Blood Urea Nitrogen 17 mg/dL (9-16); Calcium 9.7 mg/dL (8.4-10.2); Carbon Dioxide 26 mmol/L (22-29); Chloride 108 mmol/L (96-108); Estimated Glomerular Filt Rate > 60; Glucose Random 99 mg/dL (60-115); Potassium 4.8 mmol/L (3.3-5.1); Sodium 143 mmol/L (135-145)
[2023-03-03 15:37] LABS: Parathyroid Hormone Intact 55.1 pg/mL (8.7-77.1)
== END 2023-03-03 13:27 | disposition home or self-care (01) ==
LOC: HO.LAB 13:26
PROVIDERS: PCP Family Medicine; Visit Provider Urology
DX: N20.0 Calculus of kidney (principal)
CPT/HCPCS: 36415; 80048; 83970

== ENCOUNTER 2023-03-16 11:31 | Outpatient (REF) | payer MEDICARE, SELFPAY | END 2023-03-16 11:32 | disposition home or self-care (01) | LOC: HO.LAB 11:31 | PROVIDERS: PCP Family Medicine; Visit Provider Nurse Practitioner | DX: D64.9 Anemia, unspecified (principal); A04.8 Other specified bacterial intestinal infections; K92.2 Gastrointestinal hemorrhage, unspecified; K59.00 Constipation, unspecified; Z53.1 Procedure and treatment not carried out because of patient's decision for reasons of belief and group pressure | CPT/HCPCS: 36415; 83013; 85025; 99212 ==

== ENCOUNTER 2023-03-16 11:31 | Outpatient (AMB) | payer MEDICARE, SELFPAY ==
--- NOTE | 2023-03-16 11:34 | MHC.OFFVIS ---
Intake Vital Signs 03/16/23 11:46 Height 5 ft 9 in Weight 190 lb 7.67 oz BMI 28.1 Intake Visit Reasons: follow up H pylori Intake Note: Patient returns to in office visit today in follow up of H pylori. CC: Patient reports that he completed the course of antibiotic 14 days ago. Denies having any GI symptoms or concerns today. Resource Manager Required: Yes Resource Manager Name: [id number] Cory Brantley Accompanied by: Self / Same As Patient Allergies No Known Allergies Allergy (Verified 03/16/23 11:55) HPI follow up H pylori HPI Details Welsh #Yordy He will complete the quad therapy after today. He tolerated them okay, but did have some dizziness. BUT then he seems to indicate that one was not insurance covered, and he does not know names, We will have to call the pharmacy. He say his urine is a different color, and he did have some black BM's - I explain that the bismuth chews cause the black stools and this is harmless. He is on a new medicine for noc urinary frequency as well - this is the one that likely is responsible for the urine color change. There is some medication confusion confounding his reporting. In the end, the tetra was not covered so he only just completed the flagyl. Will give doxy as this is covered to get today. His hb/hct has dropped a little, will continue to monitor. ROV 4-5 weeks ssessment & Plan (1) H. pylori infection: Code(s): A04.8 - Other specified bacterial intestinal infections Medications: New doxycycline hyclat e 100 mg PO BID 28 c aps 0RF 14 days A04.8 - Other spec ified bacterial in testinal infection s Discontinued tetracycline Di scontinued Reason: Insurance Denied 500 mg PO Q12H 28 caps 0RF 14 days A04.8 - Other spec ified bacterial in testinal infection s CORRESPONDENCE On 02/15/23 @ 10:05 Gely Cooney Wrote To JoseJune Hi June. I spoke w/ this gentleman. patient was confused initially about the capsule endoscopy. I tried to schedule but he requested to wait until his f/u in Mar. I did get approval with [employer], I called yesterday to clarify as the PA was unclear (only had one day approved) and they informed me that once patient is scheduled we can call and have the date updated to reflect date of service. I will scan current PA just to have as a tool. 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 Quad therapy for HP was sent 01/26/2023. ? if WCE was scheduled. I had my staff review and answer all of his questions regarding the procedure. He completed the quad therapy about 2 weeks ago and is feeling well w/o any dizziness or SOB. Given his past GIB I want to re check his CBC to see if he is still dropping. I will send a note to my staff that he is now ready for booking of the WCE and I will see him after this test. [facility] Medical History Retinal artery branch occlusion of right eye Social History Household Members: None Housing: Apartment Do you presently have visiting nurse or other home services: No Alcohol intake: current Alcohol intake frequency: 0-2 drinks per day Alcohol type: wine Patient Tobacco Use Status: Never used Tobacco service: No Current occupational status: retired Review of Systems Const Denies fatigue, Denies fever(s), Denies night sweats, Denies poor appetite and Denies weight loss ENT Reports Normal hearing present, Denies dental pain, Denies dysphagia, Denies hearing loss, Denies mouth pain, Denies odynophagia, Denies throat swelling, Denies tongue swelling and Reports other (Dentition adequate) Card Reports no additional complaints Resp Reports no additional complaints GI Denies abdominal pain, Denies melena, Denies bloating, Denies hematochezia, Denies constipation, Denies GI cramping, Denies dysphagia, Denies excessive flatus, Denies early satiety, Denies heartburn, Denies diarrhea, Denies nausea, Denies odynophagia, Denies vomiting and Denies hematemesis Skin/Breast Denies pruritus, Denies lesions, Denies rash and Denies jaundice Neuro Reports Normal hearing present and Denies Abnormal speech present Endo Denies fatigue Aller/Immun Denies throat swelling and Denies tongue swelling Physical Exam Vital Signs: BMI result Body Mass Index 28.1 Const General: cooperative, no acute distress, well developed and well groomed Nutritional Appearance: average body habitus and well nourished Orientation/consciousness: oriented to person, oriented to place and oriented to time Limitations: language barrier HEENT Head: Yes normocephalic and Yes atraumatic Eyes General: appearance normal, both eyes and all related structures Pupils: Equal, round and reactive pupils present Neck Neck: Yes normal visual inspection and Yes no lymphadenopathy Thyroid: Thyroid normal Resp Effort & Inspection: normal respiratory effort and able to speak in complete sentences Auscultation: clear to auscultation bilaterally Cardio Rate: regular rate Rhythm: regular rhythm Heart sounds: Normal, physiologic split S2 sound present Peripheral pulses: radial pulses present and posterior tibial pulses present GI Inspection: No distended and No Abdominal panniculus present Palpation (GI): Soft to palpation, nontender, no guarding, not rigid and No hepatosplenomegaly present Percussion: Yes normal to percussion Auscultation: normal bowel sounds Rectal Exam - Male: Yes deferred Skin General skin exam: no rashes or lesions noted, turgor normal, skin not dry, no jaundice, No spider nevi and no striae Rashes: no rashes Nails: normal Neuro General: oriented to person, oriented to place and oriented to time Cranial nerves: Yes Equal, round and reactive pupils present and Yes Normal hearing present Speech: No Abnormal speech present Extrem General: Yes normal to inspection, No clubbing, No cyanosis and No edema Psych Appearance: grossly normal and well kempt Mental Status: mental status grossly normal Speech and movement: Normal speech and movement present Affect: normal affect Attitude: cooperative Thought process: Normal thought process present and not confabulating Thought content: Normal thought content present Insight: Limited insight present (Psych) Judgement: Limited judgement present (Psych) Assessment & Plan Assessment & Plan (1) GI bleed: Code(s): K92.2 - Gastrointestinal hemorrhage, unspecified (2) Refusal of blood transfusions as 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 pylori infection: Code(s): A04.8 - Other specified bacterial intestinal infections (5) Anemia: Code(s): D64.9 - Anemia, unspecified Plan Welsh #[id number], Trina He is [place] and has trouble hearing the video director strategic planning. Quad therapy for HP was sent 01/26/2023. ? if WCE was scheduled. I had my staff review and answer all of his questions regarding the procedure. He completed the quad therapy about 2 weeks ago and is feeling well w/o any dizziness or SOB. Given his past GIB I want to re check his CBC to see if he is still dropping. I will send a note to my staff that he is now ready for booking of the WCE and I will see him after this test. Orders: Orders H Pylori Breath Test 03/17/23 A04.8 - Other specified bacterial intestinal infections Complete Blood Count Auto Diff 03/16/23 D64.9 - Anemia, unspecified Medications: Discontinued peg 3350-electrolytes 236-22.74-6.74 -5.86 gram until fecal effluent is clear; do not exceed a total volume of 2,000 mL Discontinued Reason: Patient Completed Course 240 mL PO Q10M 1 day 4,000 mL 0RF Z12.11 - Encounter for screening for malignant neoplasm of colon Coding Level of Care Code Est Pt Level 3 (50895) Diagnoses GI bleed K92.2 Refusal of blood transfusions as patient is Adventist Z53.1 Constipation K59.00 H. pylori infection A04.8 Anemia D64.9
[2023-03-16 11:46] VITALS: BMI 28.1
== END 2023-03-16 13:31 | disposition home or self-care (01) ==
PROVIDERS: PCP Family Medicine; Visit Provider Nurse Practitioner
DX: K92.2 Gastrointestinal hemorrhage, unspecified (principal); Z53.1 Procedure and treatment not carried out because of patient's decision for reasons of belief and group pressure; K59.00 Constipation, unspecified; A04.8 Other specified bacterial intestinal infections; D64.9 Anemia, unspecified
CPT/HCPCS: 99213

== ENCOUNTER → 2023-04-04 07:45 | Outpatient (BNVA) | payer MEDICARE, SELFPAY | PROVIDERS: PCP Family Medicine; Visit Provider Internal Medicine Gastroenterology ==

== ENCOUNTER 2023-05-10 07:31 | Outpatient (AMB) | payer MEDICARE, SELFPAY ==
--- NOTE | 2023-05-14 07:46 | A.OFFVIS_ITS ---
Intake Intake Visit Reasons: CAPSULE ENDOSCOPY Allergies No Known Allergies Allergy (Verified 03/16/23 11:55) [facility] Medical History Retinal artery branch occlusion of right eye Social History Household Members: None Housing: Apartment Do you presently have visiting nurse or other home services: No Alcohol intake: current Alcohol intake frequency: 0-2 drinks per day Alcohol type: wine Patient Tobacco Use Status: Never used Tobacco service: No Current occupational status: retired Office Procedures AMB Capsule Endoscopy Procedure Notes: Capsule Endoscopy: Date of Service:05/10/23 Indication: anemia Findings: esophagus looks normal. Stomach with patchy erythema, and erosion noted in antrum. Duodenum entered at 17 min. Moderate duodenitis noted with few flecks of blood seen. Rest of small bowel is normal. Cecum entered at 4 hr 40 min. Conclusion: gastritis duodenitis consider checking nsaid use and h pylori status Capsule Endoscopy CPT Code: 73458 - Capsule Endoscopy Assessment & Plan Assessment & Plan (1) Anemia: Code(s): D64.9 - Anemia, unspecified Plan: see above Coding Level of Care Code Procedure Only Diagnoses Anemia D64.9 CPT Codes AMB Capsule Endoscopy - Capsule Endoscopy CPT Code: 26848 - Capsule Endoscopy ([id number])
== END 2023-05-10 08:04 | disposition home or self-care (01) ==
PROVIDERS: PCP Family Medicine; Visit Provider Internal Medicine Gastroenterology
DX: D64.9 Anemia, unspecified (principal); K29.70 Gastritis, unspecified, without bleeding; K29.80 Duodenitis without bleeding
CPT/HCPCS: 91110

== ENCOUNTER → 2023-05-10 07:31 | Outpatient (BNVA) | payer MEDICARE, SELFPAY | PROVIDERS: PCP Family Medicine; Visit Provider Internal Medicine Gastroenterology | DX: D64.9 Anemia, unspecified (principal) | CPT/HCPCS: 91110 ==

== ENCOUNTER 2023-05-20 12:20 | Outpatient (AMB) | payer MEDICARE, SELFPAY ==
--- NOTE | 2023-05-20 12:58 | A.OFFVIS_ITS ---
Intake Intake Visit Reasons: 12w/Litholink/labs Intake Note: Patient presents today for a 12 weeks follow-up Labs & [facility] Results: Pt failed to do the [facility] Meds- Alfuzosin & Toviaz Allergies to Antibiotic- No Known Allergies Blood Thinner- Aspirin PVR 24 mL Doula Required: No Accompanied by: Self / Same As Patient Allergies No Known Allergies Allergy (Verified 03/16/23 11:55) HPI HPI Comments History of Present Illness Details 05/20/23---Don is a 73-year-old male wh o is here for follow-up for OAB symptoms, BPH and nephrolithiasis. He is prescribed Toviaz and alfuzosin 10 mg. He has last seen on 02/25/23, I discussed metabolic workup for kidney stones he did not have the 24 hour urine done, blood work for serum calcium and parathyroid hormone levels which viewed with him. Calcium and parathyroid hormone levels obtained though 03/03/2023---9.7 and 55.1 respectively PSA-08/19/2022--1.26 ng/mL Evaluation: Urinalysis -leukocytes negative, blood negative Bladder scan PVR 24 mL. Plan--continue Toviaz, alfuzosin, follow-up in 1 year KUB and PSA prior. Review of chart: 02/25/23--Don is a 72-year-old male w ho is here for follow-up for OAB symptoms and BPH. Co-morbidity- history of stroke. Here in follow up, had some imaging done that I reviewed, CT angiogram. He is prescribed Toviaz 5 mg and Alfuzosin 10 mg. He states he is voiding without difficulty. nocturia episodes 2-3 times per night. I have reviewed CAT scan results with the patient- 01/14/23-KIDNEYS AND URETERS: The kidneys are normal in size, and attenuation. There are scattered bilateral renal calculi measuring up to 3 mm lower pole right kidney. There is no hydronephrosis. Multiple bilateral renal cysts are noted measuring up to 6.3 cm upper pole left kidney. Plan discussed--Continue taking Toviaz 5 mg and Alfuzosin 10 mg. Metabolic workup, 24 hr urine, serum Ca, PTH Testing: Renal US results reviewed?03/31/2022-- Suggestive of a small stone of the lower pole of the left kidney. Benign, Bosniak category 1 and category 2 cysts of the kidneys. Mild prostatomegaly. Postvoid bladder residual of 25 mL. Bladder US results reviewed?06/07/22-- Suggestive of msnte-ug-rvyktqjg postvoid residual bladder volume and moderate prostate enlargement. Labs reviewed--PSA--06/22/2021--1.91. 05/20/2023--PLAN:continue Toviaz, alfuzosi n, follow-up in 1 year KUB and PSA prior. [facility] Medical History Retinal artery branch occlusion of right eye Social History Household Members: None Housing: Apartment Do you presently have visiting nurse or other home services: No Alcohol intake: current Alcohol intake frequency: 0-2 drinks per day Alcohol t ype: wine Patient Tobacco Use Status: Never used Tobacco service: No Current occupational status: retired Review of Systems Const All systems reviewed & are unremarkable except as noted in HPI and below Reports no additional complaints Eyes Reports no additional complaints ENT Reports no additional complaints Card Reports no additional complaints Resp Reports no additional complaints GI Reports no additional complaints Reports as per HPI Musc Reports no additional complaints Skin/Breast Reports system reviewed and no additional complaints, except as documented Neuro Reports no additional complaints Psych Reports no additional complaints Endo Reports no additional complaints David/Lymph Reports no additional complaints Aller/Immun Reports no additional complaints Results AMB Urinalysis, Automated UA Leukoctes 0 Chandrika/uL Last Edit by SARAH Solano on 05/20/23 13:22 UA Nitrite Negative Last Edit by SARAH Solano on 05/20/23 13:22 UA Urobilinogen 0.2 mg/dL Last Edit by SARAH Solano on 05/20/23 13:2 2 UA Protein 0 mg/dL Last Edit by SARAH Solano on 05/20/23 13:22 UA pH 6.0 Last Edit by Marce Blandon A on 05/20/23 13:22 UA Blood 0 Brendan/uL Last Edit by SHIRA SolanoA on 05/20/23 13:22 UA Specific [place] 1.015 Last Edit by SHIRA SolanoA on 05/20/23 13: 22 UA Ketone Positive Last Edit by Marce Blandon A on 05/20/23 13:22 UA Bilirubin 0 mg/dL Last Edit by Marce Blandon A on 05/20/23 13:22 UA Glucose 0 mg/dL Last Edit by Marce Blandon Lon on 05/20/23 13:22 Results Reviewed Results Reviewed: Laboratory Last Values Urine pH (Auto) 6.0 05/20/23 13:21 Specific [place] (Auto) 1.015 05/20/23 13:21 Urine Protein (Auto) 0 mg/dL 05/20/23 13:21 Glucose (UA)(Auto) 0 mg/dL 05/20/23 13:21 Urine Ketones (Auto) Positive 05/20/23 13:21 Urine Blood (Auto) 0 Brendan/uL 05/20/23 13:21 Urine Nitrite (Auto) Negative 05/20/23 13:21 Urine Bilirubin (Auto) 0 mg/dL 05/20/23 13:21 Urine Urobilinogen (Auto) 0.2 mg/dL 05/20/23 13:21 Leukocyte Esterase (Auto) 0 Chandrika/uL 05/20/23 13:21 Date of Service: 01/14/23 EXAMINATION: CT ANGIOGRAM ABDOMEN AND PELVIS CLINICAL INFORMATION: GI bleed. COMPARISON: None available. TECHNIQUE: Multidetector volumetric imaging was performed from the lower chest through the abdomen to the pubic symphysis following the administration of 80 mL Omnipaque 350 intravenous contrast. No contrast reaction reported Sagittal, coronal, and MIP oblique sagittal reformatted images were obtained on the CT workstation, uploaded to PACS, and reviewed. This CT examination was performed using dose optimization techniques as appropriate, variously including the following: *Automated exposure control *Adjustment of mA and/or kV according to patient size (this includes techniques or standardized protocols for targeted exams where dose is matched to indication/reason for exam; i.e. extremities or head) *Use of iterative reconstruction technique DLP: 1699 mGy-cm FINDINGS: LUNG BASES: There is minimal scarring at the right lung base. LIVER, GALLBLADDER, AND BILIARY TREE: The liver is slightly irregular in contour. No focal hepatic lesion or biliary ductal dilatation is present. The gallbladder is unremarkable with no evidence of radiopaque gallstones, gallbladder wall thickening, or obvious pericholecystic inflammatory changes. PANCREAS: Unremarkable. SPLEEN: Unremarkable. ADRENAL GLANDS: Unremarkable. KIDNEYS AND URETERS: The kidneys are normal in size, and attenuation. There are scattered bilateral renal calculi measuring up to 3 mm lower pole right kidney. There is no hydronephrosis. Multiple bilateral renal cysts are noted measuring up to 6.3 cm upper pole left kidney. BLADDER: Unremarkable. GASTROINTESTINAL TRACT: There are diverticula of the transverse, descending and the sigmoid colon. There is mild infiltrative change along a proximal descending colonic diverticula. There is contrast extravasation lower descending colon with contrast accumulation on delayed imaging. The appendix is visualized and is within normal limits. ABDOMINAL WALL: There is a small umbilical hernia containing fat. LYMPH NODES: Normal. VASCULAR: There is atherosclerotic plaque of the abdominal aorta with an infrarenal bulge measuring up to 2.4 cm. 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 PELVIC VISCERA: There is prostate gland hypertrophy. OSSEOUS STRUCTURES: There is diffuse popn-uh-uoqblhuh thoracolumbar disc degenerative change. There is a likely chronic compression fracture of T12. IMPRESSION: Diverticula of the transverse, descending and sigmoid colon. Contrast extravasation and accumulation lower descending colon consistent with active GI bleeding likely related to diverticular disease. There is mild infiltrative change along a single diverticula of the proximal descending colon possibly early diverticulitis. Nonobstructing renal calculi. Irregular liver contour possibly hepatocellular disease/early cirrhosis. 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 Prostate gland hypertrophy. Assessment & Plan Assessment & Plan (1) Simple renal cyst: Code(s): N28.1 - Cyst of kidney, acquired (2) OAB (overactive bladder): Code(s): N32.81 - Overactive bladder (3) BPH loc w urin obs/LUTS: Code(s): N40.1 - Benign prostatic hyperplasia with lower urinary tract symptoms (4) Bilateral kidney stones: Code(s): N20.0 - Calculus of kidney Plan Continue taking Toviaz 5 mg and Alfuzosin 10 mg. KUB in one year, PSA screening Orders: Orders AMB Post Void Residual by ultrasound 05/20/23 N39.8 - Other specified disorders of urinary system XR KUB 1 Year N20.0 - Calculus of kidney PSA,Total (Free>4and<10) 1 Year Z12.5 - Encounter for screening for malignant neoplasm of prostate AMB Urinalysis Automated 05/20/23 Z13.9 - Encounter for screening, unspecified Patient Instructions: The patient had an opportunity to ask questions regarding treatment plan. All questions were answered. Imaging, Laboratory studies and physical exam results were discussed and reviewed in detail. No major barriers to understanding were identified. The patient expressed understanding and agreement with the above treatment plan. The patient is aware they should contact our office by phone for worsening of their current condition or the appearance of new symptoms. Compliance is encouraged with any medications and followup testing that is ordered. It is a privilege to be allowed the opportunity to participate in the urologic care of your patient. If you have any questions or concerns regarding treatment for the above conditions please do not hesitate to contact me. The office telephone contact is [phone]. This note is constructed in part using voice recognition software. While every effort has been made to ensure accuracy faculty support coordinator errors may have been included. Yours sincerely, Thad Scott MD Coding Level of Care Code Est Pt Level 3 (34245) Diagnoses Simple renal cyst N28.1 OAB (overactive bladder) N32.81 BPH loc w urin obs/LUTS N40.1 Bilateral kidney stones N20.0
== END 2023-05-20 13:40 | disposition home or self-care (01) ==
PROVIDERS: PCP Family Medicine; Visit Provider Urology
DX: N28.1 Cyst of kidney, acquired (principal); N32.81 Overactive bladder; N40.1 Benign prostatic hyperplasia with lower urinary tract symptoms; N20.0 Calculus of kidney
CPT/HCPCS: 99213

== ENCOUNTER → 2023-05-20 12:20 | Outpatient (BNVA) | payer MEDICARE, SELFPAY | PROVIDERS: PCP Family Medicine; Visit Provider Urology | DX: N28.1 Cyst of kidney, acquired (principal); N32.81 Overactive bladder; N40.1 Benign prostatic hyperplasia with lower urinary tract symptoms; N20.0 Calculus of kidney | CPT/HCPCS: 81003; 99212 ==

== ENCOUNTER 2023-08-24 10:04 | Outpatient (AMB) | payer MEDICARE, SELFPAY ==
--- NOTE | 2023-08-24 10:05 | A.OFFVIS_ITS ---
Intake Visit Reasons: 9w/[facility]ink Intake Note: Patient presents today via telehealth for [facility] Results: Video attempted -pt unable to follow directions for link Meds- Alfuzosin & Toviaz Allergies to Antibiotic- No Known Allergies Blood Thinner- Aspirin Procurement Forester Required: Yes Procurement Forester Language: Four Roll Calender Operator Name: Marce Blandon Accompanied by: Self / Same As Patient Allergies No Known Allergies Allergy (Verified 03/16/23 11:55) Medication List - Last Reconciled 08/24/23 by Thad Scott MD alfuzosin ER 10 mg PO QAM aspirin 81 mg PO DAILY bisacodyl (Dulcolax (bisacodyl)) 10 mg (2 x 5 mg) PO BEDTIME 2 days bismuth subsalicylate (Bismuth) 2 tabs PO QID 14 days doxycycline hyclate 100 mg PO BID 14 days fesoterodine ER 8 mg PO DAILY magnesium citrate 150 mL PO DAILY 2 days magnesium hydroxide (Milk of Magnesia) 5 mL PO BEDTIME metronidazole 1,000 mg (2 x 500 mg) PO BID 14 days omeprazole 20 mg PO BID 30 days polyethylene glycol 3350 (Miralax) 238 grams PO ONCE 1 day rosuvastatin 20 mg PO DAILY sodium,potassium,mag sulfates 17.5-3.13-1.6 gram (Suprep Bowel Prep Kit) DILUTE; drink 1/2 at 6-8 pm and half at 11 PM- 1AM HPI Comments Details: 08/24/23--Discussed 24 hour urine results: Total volume 560 mL, Calcium 78 mg; Oxalate 27 mg, Sodium 54, Citrate 550 mg. Instructed on importance of fluid intake, the patient states his bladder symptoms are improved with the combination Toviaz and alfuzosin. Will continue to monitor kidney stones. He has scheduled follow-up for 05/31/2024 with renal ultrasound, KUB and PSA prior. Review of chart: 05/20/23---Don is a 73-year-old male who is here for follow-up for OAB symptoms, BPH and nephrolithiasis. He is prescribed Toviaz and alfuzosin 10 mg. He has last seen on 02/25/23, I discussed metabolic workup for kidney stones he did not have the 24 hour urine done, blood work for serum calcium and parathyroid hormone levels which viewed with him. Calcium and parathyroid hormone levels obtained though 03/03/2023---9.7 and 55.1 respectively PSA-08/19/2022--1.26 ng/mL Evaluation: Urinalysis -leukocytes negative, blood negative Bladder scan PVR 24 mL. Plan--continue Toviaz, alfuzosin, follow-up in 1 year KUB and PSA prior. 02/25/23--Don is a 72-year-old male who is here for follow-up for OAB symptoms and BPH. Co-morbidity- history of stroke. Here in follow up, had some imaging done that I reviewed, CT angiogram. He is prescribed Toviaz 5 mg and Alfuzosin 10 mg. He states he is voiding without difficulty. nocturia episodes 2-3 times per night. I have reviewed CAT scan results with the patient- 01/14/23-KIDNEYS AND URETERS: The kidneys are normal in size, and attenuation. There are scattered bilateral renal calculi measuring up to 3 mm lower pole right kidney. There is no hydronephrosis. Multiple bilateral renal cysts are noted measuring up to 6.3 cm upper pole left kidney. Plan discussed--Continue taking Toviaz 5 mg and Alfuzosin 10 mg. Metabolic workup, 24 hr urine, serum Ca, PTH Testing: Renal US results reviewed?03/31/2022-- Suggestive of a small stone of the lower pole of the left kidney. Benign, Bosniak category 1 and category 2 cysts of the kidneys. Mild prostatomegaly. Postvoid bladder residual of 25 mL. Bladder US results reviewed?06/07/22-- Suggestive of iogtm-sr-bsllrzbw postvoid residual bladder volume and moderate prostate enlargement. Labs reviewed--PSA--06/22/2021--1.91. [facility] Medical History Retinal artery branch occlusion of right eye Social History Household Members: None Housing: Apartment Do you presently have visiting nurse or other home services: No Alcohol intake: current Alcohol intake frequency: 0-2 drinks per day Alcohol type: wine Patient Tobacco Use Status: Never used Tobacco service: No Current occupational status: retired Review of Systems Const All systems reviewed & are unremarkable except as noted in HPI and below Reports no additional complaints Eyes Reports no additional complaints ENT Reports no additional complaints Card Reports no additional complaints Resp Reports no additional complaints GI Reports no additional complaints Reports as per HPI Musc Reports no additional complaints Skin/Breast Reports system reviewed and no additional complaints, except as documented Neuro Reports no additional complaints Psych Reports no additional complaints Endo Reports no additional complaints David/Lymph Reports no additional complaints Aller/Immun Reports no additional complaints Telehealth Telehealth Telehealth Platform: [email or web address] Location of provider rendering services: practice address Location of patient: address on file Patient Identification confirmed using: Name, : Yes Telehealth method: voice only Patient verbally consented to treatment: Yes Patient verbally consented to billing insurance company: Yes Patient informed of any privacy concerns related to visit: Yes Minutes spent on Phone/Video with Pt.: 20 Results Reviewed Results Reviewed: Date of Service: 01/14/23 EXAMINATION: CT ANGIOGRAM ABDOMEN AND PELVIS CLINICAL INFORMATION: GI bleed. COMPARISON: None available. TECHNIQUE: Multidetector volumetric imaging was performed from the lower chest through the abdomen to the pubic symphysis following the administration of 80 mL Omnipaque 350 intravenous contrast. No contrast reaction reported Sagittal, coronal, and MIP oblique sagittal reformatted images were obtained on the CT workstation, uploaded to PACS, and reviewed. This CT examination was performed using dose optimization techniques as appropriate, variously including the following: *Automated exposure control *Adjustment of mA and/or kV according to patient size (this includes techniques or standardized protocols for targeted exams where dose is matched to indication/reason for exam; i.e. extremities or head) *Use of iterative reconstruction technique DLP: 1699 mGy-cm FINDINGS: LUNG BASES: There is minimal scarring at the right lung base. LIVER, GALLBLADDER, AND BILIARY TREE: The liver is slightly irregular in contour. No focal hepatic lesion or biliary ductal dilatation is present. The gallbladder is unremarkable with no evidence of radiopaque gallstones, gallbladder wall thickening, or obvious pericholecystic inflammatory changes. PANCREAS: Unremarkable. SPLEEN: Unremarkable. ADRENAL GLANDS: Unremarkable. KIDNEYS AND URETERS: The kidneys are normal in size, and attenuation. There are scattered bilateral renal calculi measuring up to 3 mm lower pole right kidney. There is no hydronephrosis. Multiple bilateral renal cysts are noted measuring up to 6.3 cm upper pole left kidney. BLADDER: Unremarkable. GASTROINTESTINAL TRACT: There are diverticula of the transverse, descending and the sigmoid colon. There is mild infiltrative change along a proximal descending colonic diverticula. There is contrast extravasation lower descending colon with contrast accumulation on delayed imaging. The appendix is visualized and is within normal limits. ABDOMINAL WALL: There is a small umbilical hernia containing fat. LYMPH NODES: Normal. VASCULAR: There is atherosclerotic plaque of the abdominal aorta with an infrarenal bulge measuring up to 2.4 cm. 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 PELVIC VISCERA: There is prostate gland hypertrophy. OSSEOUS STRUCTURES: There is diffuse ivqb-mb-rspaxjow thoracolumbar disc degenerative change. There is a likely chronic compression fracture of T12. IMPRESSION: Diverticula of the transverse, descending and sigmoid colon. Contrast extravasation and accumulation lower descending colon consistent with active GI bleeding likely related to diverticular disease. There is mild infiltrative change along a single diverticula of the proximal descending colon possibly early diverticulitis. Nonobstructing renal calculi. Irregular liver contour possibly hepatocellular disease/early cirrhosis. 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 Prostate gland hypertrophy. Assessment & Plan Assessment & Plan (1) Simple renal cyst: Code(s): N28.1 - Cyst of kidney, acquired Category: Medical (2) OAB (overactive bladder): Code(s): N32.81 - Overactive bladder Category: Medical (3) BPH loc w urin obs/LUTS: Code(s): N40.1 - Benign prostatic hyperplasia with lower urinary tract symptoms Category: Medical (4) Bilateral kidney stones: Code(s): N20.0 - Calculus of kidney Category: Medical Plan Continue taking Toviaz 5 mg and Alfuzosin 10 mg. Will continue to monitor kidney stones. He has scheduled follow-up for 05/31/2024 with renal ultrasound, KUB and PSA prior. Orders: Orders US renal BI 9 Months N20.0 - Calculus of kidney, N28.1 - Cyst of kidney, acquired Medications: Refilled fesoterodine ER 8 mg PO DAILY 90 tabs 3RF alfuzosin ER 10 mg PO QAM 90 tabs 3RF Patient Instructions: The patient had an opportunity to ask questions regarding treatment plan. The patient expressed understanding and agreement with the above treatment plan. The patient is aware they should contact our office by phone for worsening of their current condition or the appearance of new symptoms. Compliance is encour aged with any medications and followup testing that is ordered. It is a privilege to be allowed the opportunity to participate in the urologic care of your patient. If you have any questions or concerns regarding treatment for the above conditions please do not hesitate to contact me. The office telephone contact is [phone]. This note is constructed in part using voice recognition software. While every effort has been made to ensure accuracy supervisor carton and can supply errors may have been included. Yours sincerely, Thad Scott MD Coding Level of Care Code Tele Est Pt Level 3 (84784) Diagnoses Simple renal cyst N28.1 OAB (overactive bladder) N32.81 BPH loc w urin obs/LUTS N40.1 Bilateral kidney stones N20.0
--- OUTSIDE RECORDS SUMMARY | 2023-08-24 10:07 | XMS_ITS | Patient Health Record ---
Author Organization [facility] Address [address] [place] [address] Care Team Providers Care Film Rental Clerk Name Role Phone [facility]URDES CRAWFORD N[facility] Primary Care Provider Curtis Gomes [phone] REASON FOR REFERRAL No Information SOCIAL HISTORY Sex Assigned At : Social History Observation Description Sex Assigned At Unknown Encounters Encounter Location Date Provider Diagnosis [facility] [address] [place] [id number] 12/10/2022 Curtis Duncan PLAN OF TREATMENT No Information Insurance Providers Payer Name Payer Address Payer Phone Subscriber Number Group Number Insured Name Patient Relationship to Insured Coverage Start Date Coverage End Date [facility] [address] [address] [place] [address] [id number] DIOGENES PRADHAN Self - patient is the insured
== END 2023-08-24 12:00 | disposition home or self-care (01) ==
LOC: HO.HUSH 10:04
PROVIDERS: PCP Family Medicine; Visit Provider Urology
DX: N28.1 Cyst of kidney, acquired (principal); N32.81 Overactive bladder; N40.1 Benign prostatic hyperplasia with lower urinary tract symptoms; N20.0 Calculus of kidney
CPT/HCPCS: 99442

== ENCOUNTER → 2023-08-24 10:04 | Outpatient (BNVA) | payer MEDICARE, SELFPAY | PROVIDERS: PCP Family Medicine; Visit Provider Urology ==

== ENCOUNTER 2024-02-29 07:58 | Day surgery (SDC) | payer MEDICARE, SELFPAY ==
--- NOTE | 2024-02-28 12:23 | P.CONAN_ITS ---
Documented by User: Carol Potts NP 02/28/24 12:24 HPI - Anesthesia Eval Consult details Narrative: 73yo M for Colonoscopy Follows [facility] Vascular for carotid stenosis with yearly US surveillance [facility] Active Problems Active Problems: All Active Problems Bilateral kidney stones (Acute) H. pylori infection (Acute) Constipation (Acute) Refusal of blood transfusions as patient is Anglican (Acute) GI bleed (Acute) Anemia (Acute) Pre-op examination (Acute) Simple renal cyst (Acute) Nocturia (Acute) Screening PSA (prostate specific antigen) (Acute) Renal cysts, acquired, bilateral (Acute) History of stroke (Acute) OAB (overactive bladder) (Acute) BPH loc w urin obs/LUTS (Acute) Colon cancer screening (Acute) High cholesterol (Acute) History of CVA (cerebrovascular accident) without residual deficits (Acute) Increased urinary frequency (Acute) Bilateral carotid artery stenosis (Acute) Past Medical History Medical History (Updated 02/29/24 @ 08:53 by Shweta Joiner RN) Bilateral inguinal hernia Rectal bleed CVA (cerebral vascular accident) Bilateral carotid artery stenosis OAB (overactive bladder) BPH (benign prostatic hyperplasia) Elevated cholesterol Retinal artery branch occlusion of right eye Family History Family history of problems with anesthesia: No Surgical History Surgical History (Updated 02/27/24 @ 13:42 by Taylor Lepe RN) History of esophagogastroduodenoscopy (EGD) H/O colonoscopy History of Problems with Anesthesia: No Social History Social History Household Members: None Housing: Apartment Do you presently have visiting nurse or other home services: No Alcohol intake: current Alcohol intake frequency: former alcohol drinker Alcohol type: wine Patient Tobacco Use Status: Never used Tobacco Use of substances other than those prescribed or required for medical reasons: No Are you DNR?: No Advance Directives: No Advance Directives Information Provided: Yes service: No Current occupational status: retired Meds Allergies Allergy/AdvReac Type Severity Reaction Status Date / Time No Known Allergies Allergy Verified 03/16/23 11:55 Home Medications ?Medication ?Instructions ?Recorded ?Confirmed ?Last Taken ?Type rosuvastatin 20 mg tablet 20 mg PO DAILY 02/02/22 08/24/23 Unknown History Exam Narrative Narrative: US carotid duplex BI 2022 IMPRESSION: 1. RIGHT: Minimal, non-hemodynamically significant stenosis of the proximal right internal carotid artery corresponding to a 0-49% stenosis by velocity criteria. 2. LEFT: Chronically occluded. 3. There is no change in the category severity of disease when compared to the previous study dated 11/25/2021. Assessment and Plan Assessment Anesthesia Assessment: Chart Reviewed Final Anesthetic Review Family History of Problems with Anesthesia: No History of Problems with Anesthesia: No Documented by User: Ambrocio Romero MD 02/29/24 09:22 [facility] Past Medical History Medical History (Updated 02/29/24 @ 08:53 by Shweta Joiner RN) Bilateral inguinal hernia Rectal bleed CVA (cerebral vascular accident) Bilateral carotid artery stenosis OAB (overactive bladder) BPH (benign prostatic hyperplasia) Elevated cholesterol Retinal artery branch occlusion of right eye Surgical History Surgical History (Updated 02/27/24 @ 13:42 by Taylor Lepe RN) History of esophagogastroduodenoscopy (EGD) H/O colonoscopy Social History Social History Household Members: None Housing: Apartment Do you presently have visiting nurse or other home services: No Alcohol intake: current Alcohol intake frequency: former alcohol drinker Alcohol type: wine Patient Tobacco Use Status: Never used Tobacco Use of substances other than those prescribed or required for medical reasons: No Are you DNR?: No Advance Directives: No Advance Directives Information Provided: Yes service: No Current occupational status: retired Meds Allergies Allergy/AdvReac Type Severity Reaction Status Date / Time No Known Allergies Allergy Verified 03/16/23 11:55 Home Medications ?Medication ?Instructions ?Recorded ?Confirmed ?Last Taken ?Type rosuvastatin 20 mg tablet 20 mg PO DAILY 02/02/22 08/24/23 Unknown History Exam Airway Mallampati Class: II TM Dist: <=3cm Neck ROM: Full Loose/Missing/Broken Teeth: No Heart: ok Lungs: ok Assessment and Plan Assessment Anesthesia Assessment: Anesthesia Plan Discussed Final Anesthetic Review NPO: Yes ASA Class: III Final Preanesthetic Review: No Changes in Pt Med Stat, Meds/Allgs Chart Reviewed, Consent Obtained/Reviewed and Anes Risks/Benef Reviewed Patient Risk: High Procedure Risk: Low Anesthetic Plan Anesthetic Plan: MAC: and Agree w/ Assess. and Plan Disposition: Standard PACU
--- OUTSIDE RECORDS SUMMARY | 2024-02-29 08:02 | XMS_ITS | Patient Health Record ---
Author Organization [facility] Address [address] [place] [id number] Care Team Providers Care Sales Service Route Manager Name Role Phone LURDES CRAWFORD N.P. Primary Care Provider Curtis Gomes [phone] REASON FOR REFERRAL No Information SOCIAL HISTORY Sex Assigned At : Social History Observation Description Sex Assigned At Unknown PLAN OF TREATMENT No Information Insurance Providers Payer Name Payer Address Payer Phone Subscriber Number Group Number Insured Name Patient Relationship to Insured Coverage Start Date Coverage End Date [facility] [address] [address] [place] [address] [id number] DIOGENES PRADHAN Self - patient is the insured
--- OUTSIDE RECORDS SUMMARY | 2024-02-29 08:02 | XMS_ITS ---
Author Organization [facility] Address [address] [place] [phone] Care Team Providers Care Bankruptcy Processor Name Role Phone LURDES CRAWFORD N.P. Primary Care Provider Curtis Gomes [phone] REASON FOR VISIT colon screening Encounters Encounter Location Date Provider Diagnosis [facility] [address] [place] [phone] 12/10/2022 Curtis Duncan PLAN OF TREATMENT No Information
[2024-02-29 08:42] VITALS: BP 137/89; PULSE 83; RESP 16; TEMP 36.8; O2SAT 96; BMI 28.2
[2024-02-29] MEDS: Lactated Ringers 1,000 ML 100 ML IVCONT (09:07)
--- NOTE | 2024-02-29 09:16 | MHC.SHP ---
Pre-Procedural Eval Section A - 24 Hr Update-Section A only Date of Service: 02/29/24 Section B - Complete if H&P > 30 days Chief Complaint: Anemia, unspecified Relevant Family History (Specify if Yes): No Relevant Social History: None Present Medications: see Short Stay Collaborative assessment Medical History: Significant History (CVA (cerebral vascular accident) Bilateral carotid artery stenosis OAB (overactive bladder) BPH (benign prostatic hyperplasia) Elevated cholesterol Retinal artery branch occlusion of right eye) History of Previous Operations: Relevant previous surgery/procedure and date(s) (History of esophagogastroduodenoscopy (EGD) H/O colonoscopy) Allergies: Allergies Allergy/AdvReac Type Severity Reaction Status Date / Time No Known Allergies Allergy Verified 03/16/23 11:55 Review of Systems Sugical H&P ROS: Negative: Constitution, Cardiovascular, Respiratory, Neurological, Psychiatric, Hem-Onc, Allergic/Immunologic, Gastrointestinal, Genitourinary, Musculoskeletal, Integumentary, Endocrine and Eyes/Ears/Nose/Throat Exam Surgical H&P Exam: Normal: HEENT, Normal: Heart, Normal: Lungs, Normal: Extremities, Normal: Abdomen, Normal: Skin and Normal: Neurological Plan Diagnosis/Plan: Unchanged I have reviewed the history and physical and performed a pertinent physical examination on my patient. No changes have occurred unless specified. Time Spent With Patient Time: Total time managing care of this patient today ____ minutes.
[2024-02-29 09:46] VITALS: BP 111/76; PULSE 78; RESP 16; TEMP 36.1; O2SAT 95
--- NOTE | 2024-02-29 09:48 | P.OPN-COLO_ITS ---
Colonoscopy Operative Note Operative Note Date of Service: 02/29/24 Narrative: Operative Information Procedure Description: Colonoscopy Indication: screening Anesthesia: MAC COLONOSCOPY Instrument: Olympus variable stiffness pediatric scope 190L Colonoscopy Monitoring: Vital signs and clinical assessment, continuous EKG monitoring, Pulse oximetry, Carbon Dioxide monitoring and blood pressure monitoring were done throughout the procedure. Colon withdrawal time was 10 minutes. Procedure: The patient was placed in the left lateral decubitis position and pre-procedure medications were administered. After a digital rectal examination of the ano-rectum, the video colonoscope was inserted into the rectum and advanced through the colon to the cecum/TI. The colonoscope was slowly withdrawn in a retrograde panoramic fashion and the colon mucosa was carefully examined including a retroflexed view of the rectum. Findings and interventions are described below. Procedure Difficulty: moderate Findings: Terminal Ileum-not intubated Cecum:normal Ascending Colon: mild diverticulosis Transverse Colon -normal Descending Colon:normal Sigmoid Colon: moderate severe diverticulosis Rectum: Retroflexion with small internal hemorrhoids seen, grade I Anorectum - normal Intervention: none Colon preparation: [place] Bowel Preparation Scale Right colon; 1-2 Transverse colon: 2- Left colon; 1-2 (0 = Unprepared colon segment with mucosa not seen due to solid stool that cannot be cleared. 1 = Portion of mucosa of the colon segment seen, but other areas of the colon segment not well seen due to staining, residual stool and/or opaque liquid. 2 = Minor amount of residual staining, small fragments of stool and/or opaque liquid, but mucosa of colon segment seen well. 3 = Entire mucosa of colon segment seen well with no residual staining, small fragments of stool or opaque liquid) Impression and Post Procedure Diagnosis: diverticulosis internal hemorrhoids Plan: High fiber diet leaflet Avoid straining at stool, epsom salts and sitz bath, anusol supps or cream Repeat Colonoscopy in 1 year due to prep or earlier if clinically indicated Above findings were reviewed with the patient and relevant handouts were provided if indicated.
[2024-02-29 10:00] VITALS: BP 119/81; PULSE 85; RESP 16; TEMP 36.2; O2SAT 96
== END 2024-02-29 10:57 | disposition home or self-care (01) ==
PROVIDERS: Visit Provider Internal Medicine Gastroenterology
PROC: 0DJD8ZZ Inspection of Lower Intestinal Tract, Via Natural or Artificial Opening Endoscopic (ICD-10-PCS; CPT 45378; principal; 2024-02-29 10:00)
DX: D64.9 Anemia, unspecified (principal); K62.5 Hemorrhage of anus and rectum; K57.30 Diverticulosis of large intestine without perforation or abscess without bleeding; K64.0 First degree hemorrhoids; I65.23 Occlusion and stenosis of bilateral carotid arteries; E78.00 Pure hypercholesterolemia, unspecified; N40.1 Benign prostatic hyperplasia with lower urinary tract symptoms; R35.0 Frequency of micturition; R35.1 Nocturia; Z86.73 Personal history of transient ischemic attack (TIA), and cerebral infarction without residual deficits; Z79.899 Other long term (current) drug therapy
CPT/HCPCS: 45378; J2003; J2704

== ENCOUNTER → 2024-02-29 07:58 | Outpatient (BNV) | payer MEDICARE, SELFPAY | PROVIDERS: Visit Provider Internal Medicine Gastroenterology | DX: Z12.11 Encounter for screening for malignant neoplasm of colon (principal); K57.90 Diverticulosis of intestine, part unspecified, without perforation or abscess without bleeding; K64.0 First degree hemorrhoids | CPT/HCPCS: G0121 ==

== ENCOUNTER 2024-03-15 11:43 | Outpatient (AMB) | payer MEDICARE, SELFPAY ==
[2024-03-15 11:50] VITALS: BP 139/85; PULSE 86; BMI 28.6
--- NOTE | 2024-03-15 11:50 | MHC.OFFVIS ---
Vital Signs 03/15/24 11:50 Height 5 ft 9 in Weight 193 lb 9.054 oz BMI 28.6 BP 139/85 Blood Pressure Location Lt brachial Position Sitting Pulse 86 Intake Visit Reasons: s/p colon Intake Note: Don returns in follow up s/p colonoscopy. CC: Patient reports that he has increased his fiber intake and is doing well. Denies having any new GI symptoms or concerns today. Amr Physician Required: Yes Accompanied by: Self / Same As Patient Allergies No Known Allergies Allergy (Verified 03/15/24 11:54) HPI HPI s/p colon: Details: Assessment & Plan (1) GI bleed: Code(s): K92.2 - Gastrointestinal hemorrhage, unspecified (2) Refusal of blood transfusions as patient is Christianity: Code(s): Z53.1 - Procedure and treatment not carried out because of patient's decision for reasons of belief and group pressure (3) Constipation: Code(s): K59.00 - Constipation, unspecified (4) H. 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 Quad therapy for HP was sent 01/26/2023. ? if WCE was scheduled. I had my staff review and answer all of his questions regarding the procedure. He completed the quad therapy about 2 weeks ago and is feeling well w/o any dizziness or SOB. Given his past GIB I want to re check his CBC to see if he is still dropping. I will send a note to my staff that he is now ready for booking of the WCE and I will see him after this test. Orders: Orders H Pylori Breath Test 03/17/23 A04.8 - Other specified bacterial intestinal infections Complete Blood Count Auto Diff 03/16/23 D64.9 - Anemia, unspecified Medications: Discontinued peg 3350-electrolytes 236-22.74-6.74 -5.86 gram until fecal effluent is clear; do not exceed a total volume of 2,000 mL Discontinued Reason: Patient Completed Course 240 mL PO Q10M 1 day 4,000 mL 0RF Z12.11 - Encounter for screening for malignant neoplasm of colon Laboratory Tests 03/16/23 12:29 H. pylori Breath Test Negative Laboratory Tests 03/16/23 13:45 WBC 6.5 Hgb 15.4 Hct 46.3 Plt Count 126 L COLONOSCOPY 02/2024 Findings: Terminal Ileum-not intubated Cecum:normal Ascending Colon: mild diverticulosis Transverse Colon -normal Descending Colon:normal Sigmoid Colon: moderate severe diverticulosis Rectum: Retroflexion with small internal hemorrhoids seen, grade I Anorectum - normal Intervention: none Impression and Post Procedure Diagnosis: diverticulosis internal hemorrhoids Plan: High fiber diet leaflet Avoid straining at stool, epsom salts and sitz bath, anusol supps or cream Repeat Colonoscopy in 1 year due to prep or earlier if clinically indicated CORRESPONDENCE Medication Orders polyethylene glycol 3350 238 grams PO ONCE 238 grams 0RF 1 day New peg 3350-electrolytes 236-22.74-6.74 -5.86 gram 240 mL PO Q10M 4,000 mL 0RF 1 day Discontinued On 03/18/23 @ 14:01 Steven Rubio Wrote To Kaylyn Garcia Patient requesting Miralax for EGD capsule prep. On 03/18/23 @ 12:13 Kaylyn Garcia Wrote To Steven Rubio Please call this patient and advise him that the H pylori is gone. He was very eager to know. CAPSULE ENDOSCOPY RESULTS Date of Service:05/10/23 Indication: anemia Findings: esophagus looks normal. Stomach with patchy erythema, and erosion noted in antrum. Duodenum entered at 17 min. Moderate duodenitis noted with few flecks of blood seen. Rest of small bowel is normal. Cecum entered at 4 hr 40 min. Conclusion: gastritis duodenitis consider checking nsaid use and h pylori status Capsule Endoscopy CPT Code: 36923 - Capsule Endoscopy TODAY'S VISIT Martiniquais #Brittany Murphy THE PROCEDURE NEEDS TO BE REPEATED IN 1 YEAR DUE TO POOR PREP. He will need a 2 day prep next time since he failed to completely clear this time. He denies any troubles with the prep. The procedure was well tolerated. The results were explained and the patient is agreeable to the follow-up interval as stated. The bowel pattern has returned to normal. Education was provided to tell any 1st degree relatives about their findings to be sure that they are screened by age 45. Educated that they will be put on a recall list when it is time for their repeat scope but should they move out of state or away from the hospital they will need to remember along with their primary to repeat the procedure in a timely fashion to avoid any adverse complications. I explain all of the results and he says his stomach is feeling well. He is using a fiber supplement and a roid cream since IH were found. His stomach feels well, and stool antigen confirms HP eradication. He is no longer taking any acid reducing medications. The only complaint he has is dizziness since my stroke. I explain that this COULD be neurologic, depending on what part of the brain was affected. He should discuss this with his neurologist. ROV 9 mos to reschedule scope [facility] Medical History (Updated 03/15/24 @ 12:20 by STEPHANE Connor) History of CVA (cerebrovascular accident) without residual deficits Colon cancer screening Renal cysts, acquired, bilateral History of stroke Screening PSA (prostate specific antigen) Pre-op examination Bilateral inguinal hernia Rectal bleed CVA (cerebral vascular accident) Bilateral carotid artery stenosis OAB (overactive bladder) BPH (benign prostatic hyperplasia) Elevated cholesterol Retinal artery branch occlusion of right eye Surgical History History of esophagogastroduodenoscopy (EGD) H/O colonoscopy Social History Household Members: None Housing: Apartment Do you presently have visiting nurse or other home services: No Alcohol intake: current Alcohol intake frequency: former alcohol drinker Alcohol type: wine Patient Tobacco Use Status: Never used Tobacco service: No Current occupational status: retired Review of Systems Const Denies fatigue, Denies fever(s), Denies night sweats, Denies poor appetite and Denies weight loss ENT Reports Normal hearing present, Denies dental pain, Denies dysphagia, Denies hearing loss, Denies mouth pain, Denies odynophagia, Denies throat swelling, Denies tongue swelling and Reports other (Dentition adequate) Card Reports no additional complaints Resp Reports no additional complaints GI Details: Denies abdominal pain, Denies melena, Denies bloating, Denies hematochezia, Denies constipation, Denies GI cramping, Denies dysphagia, Denies excessive flatus, Denies early satiety, Denies heartburn, Denies diarrhea, Denies nausea, Denies odynophagia, Denies vomiting and Denies hematemesis Skin/Breast Denies pruritus, Denies lesions, Denies rash and Denies jaundice Neuro Reports Normal hearing present and Denies Abnormal speech present Endo Denies fatigue Aller/Immun Denies throat swelling and Denies tongue swelling Physical Exam Vital Signs: Last Vital Signs Pulse 86 03/15/24 11:50 BP 139/85 03/15/24 11:50 BMI result Body Mass Index 28.6 Const General: cooperative, no acute distress, well developed and well groomed Nutritional Appearance: average body habitus and well nourished Orientation/consciousness: oriented to person, oriented to place and oriented to time Limitations: language barrier HEENT Head: Yes normocephalic and Yes atraumatic Eyes General: appearance normal, both eyes and all related structures Pupils: Equal, round and reactive pupils present Neck Neck: Yes normal visual inspection and Yes no lymphadenopathy Thyroid: Thyroid normal Resp Effort & Inspection: normal respiratory effort and able to speak in complete sentences Auscultation: clear to auscultation bilaterally Cardio Rate: regular rate Rhythm: regular rhythm Heart sounds: Normal, physiologic split S2 sound present Peripheral pulses: radial pulses present and posterior tibial pulses present GI Inspection: No distended and No Abdominal panniculus present Palpation (GI): Soft to palpation, nontender, no guarding, not rigid and No hepatosplenomegaly present Percussion: Yes normal to percussion Auscultation: normal bowel sounds Rectal Exam - Male: Yes deferred Skin General skin exam: no rashes or lesions noted, turgor normal, skin not dry, no jaundice, No spider nevi and no striae Rashes: no rashes Nails: normal Neuro General: oriented to person, oriented to place and oriented to time Cranial nerves: Yes Equal, round and reactive pupils present and Yes Normal hearing present Speech: No Abnormal speech present Extrem General: Yes normal to inspection, No clubbing, No cyanosis and No edema Psych Appearance: grossly normal and well kempt Mental Status: mental status grossly normal Speech and movement: Normal speech and movement present Affect: normal affect Attitude: cooperative Thought process: Normal thought process present and not confabulating Thought content: Normal thought content present Insight: Limited insight present (Psych) Judgement: Limited judgement present (Psych) Results Reviewed Results Reviewed: Laboratory Tests 03/16/23 12:29 H. pylori Breath Test Negative Laboratory Tests 03/16/23 13:45 WBC 6.5 Hgb 15.4 Hct 46.3 Plt Count 126 L COLONOSCOPY 02/2024 Findings: Terminal Ileum-not intubated Cecum:normal Ascending Colon: mild diverticulosis Transverse Colon -normal Descending Colon:normal Sigmoid Colon: moderate severe diverticulosis Rectum: Retroflexion with small internal hemorrhoids seen, grade I Anorectum - normal Intervention: none Impression and Post Procedure Diagnosis: diverticulosis internal hemorrhoids Plan: High fiber diet leaflet Avoid straining at stool, epsom salts and sitz bath, anusol supps or cream Repeat Colonoscopy in 1 year due to prep or earlier if clinically indicated CAPSULE ENDOSCOPY RESULTS Date of Service:05/10/23 Indication: anemia Findings: esophagus looks normal. Stomach with patchy erythema, and erosion noted in antrum. Duodenum entered at 17 min. Moderate duodenitis noted with few flecks of blood seen. Rest of small bowel is normal. Cecum entered at 4 hr 40 min. Conclusion: gastritis duodenitis consider checking nsaid use and h pylori status Capsule Endoscopy CPT Code: 34907 - Capsule Endoscopy Assessment & Plan Assessment & Plan (1) H. pylori infection: Comment: confirmed eradicated stool antigen 01/2024 Code(s): A04.8 - Other specified bacterial intestinal infections Category: Medical (2) GI bleed: Comment: Pt had EGD/colonoscopy and WCE with no major source found Code(s): K92.2 - Gastrointestinal hemorrhage, unspecified Category: Medical (3) Refusal of blood transfusions as patient is Christianity: Code(s): Z53.1 - Procedure and treatment not carried out because of patient's decision for reasons of belief and group pressure Category: Medical (4) Anemia: Code(s): D64.9 - Anemia, unspecified Category: Medical (5) Constipation: Comment: resolved with fiber therapy Code(s): K59.00 - Constipation, unspecified Category: Medical Plan Martiniquais #Tachira LIve THE PROCEDURE NEEDS TO BE REPEATED IN 1 YEAR DUE TO POOR PREP. He will need a 2 day prep next time since he failed to completely clear this time. He denies any troubles with the prep. The procedure was well tolerated. The results were explained and the patient is agreeable to the follow-up interval as stated. The bowel pattern has returned to normal. Education was provided to tell any 1st degree relatives about their findings to be sure that they are screened by age 45. Educated that they will be put on a recall list when it is time for their repeat scope but should they move out of state or away from the hospital they will need to remember along with their primary to repeat the procedure in a timely fashion to avoid any adverse complications. I explain all of the results and he says his stomach is feeling well. He is using a fiber supplement and a roid cream since IH were found. His stomach feels well, and stool antigen confirms HP eradication. He is no longer taking any acid reducing medications. The only complaint he has is dizziness since my stroke. I explain that this COULD be neurologic, depending on what part of the brain was affected. He should discuss this with his neurologist. ROV 9 mos to reschedule scope Medications: Discontinued doxycycline hyclate Discontinued Reason: Patient Completed Course 100 mg PO BID 14 days 28 caps 0RF A04.8 - Other specified bacterial intestinal infections omeprazole Discontinued Reason: Doctor's Order 20 mg PO BID 30 days 60 caps 0RF A04.8 - Other specified bacterial intestinal infections bisacodyl (Dulcolax (bisacodyl)) colonoscopy prep Discontinued Reason: Patient Completed Course 10 mg (2 x 5 mg) PO BEDTIME 2 days 4 tabs 0RF K92.2 - Gastrointestinal hemorrhage, unspecified Coding Level of Care Code Est Pt Level 4 (16282) Diagnoses H. pylori infection A04.8 GI bleed K92.2 Refusal of blood transfusions as patient is Christianity Z53.1 Anemia D64.9 Constipation K59.00 Time Spent (min) 32
--- OUTSIDE RECORDS SUMMARY | 2024-03-15 12:53 | XMS_ITS | Patient Health Record ---
Author Organization [facility] Address [address] [place] [phone] Care Team Providers Care Occup Therapist Name Role Phone LURDES CRAWFORD N.P. Primary Care Provider Curtis Gomes [phone] REASON FOR REFERRAL No Information SOCIAL HISTORY Sex Assigned At : Social History Observation Description Sex Assigned At Unknown PLAN OF TREATMENT No Information Insurance Providers Payer Name Payer Address Payer Phone Subscriber Number Group Number Insured Name Patient Relationship to Insured Coverage Start Date Coverage End Date [facility] [address] [address] [place] [address] [id number] DIOGENES PRADHAN Self - patient is the insured
== END 2024-03-15 12:20 | disposition home or self-care (01) ==
PROVIDERS: PCP Family Medicine; Visit Provider Nurse Practitioner
DX: A04.8 Other specified bacterial intestinal infections (principal); K92.2 Gastrointestinal hemorrhage, unspecified; Z53.1 Procedure and treatment not carried out because of patient's decision for reasons of belief and group pressure; D64.9 Anemia, unspecified; K59.00 Constipation, unspecified
CPT/HCPCS: 99214

== ENCOUNTER → 2024-03-15 11:43 | Outpatient (BNVA) | payer MEDICARE, SELFPAY | PROVIDERS: PCP Family Medicine; Visit Provider Nurse Practitioner | DX: Z53.1 Procedure and treatment not carried out because of patient's decision for reasons of belief and group pressure (principal); K59.00 Constipation, unspecified; K92.2 Gastrointestinal hemorrhage, unspecified; A04.8 Other specified bacterial intestinal infections; D64.9 Anemia, unspecified | CPT/HCPCS: 99212 ==

== ENCOUNTER 2024-05-01 09:12 | Outpatient (REF) | payer MEDICARE, SELFPAY ==
--- NOTE | ~2024-05-01 | US_ITS ---
CLINICAL HISTORY: N20.0 - Calculus of kidney US Renal Comparison: None Findings: Right kidney normal size and echotexture,12.2 cm length. Multiple right renal cysts, largest of which is in the superior pole measuring 74 mm. 2 nonobstructing right renal calculi, largest of which is in the interpolar kidney measuring 3 mm. Left kidney normal size and echotexture, 11.7 cm length. Multiple cysts, largest of which is in the interpolar kidney with septations measuring 53 mm. Multiple calculi, largest of which is in the superior pole measuring 3 mm. No hydronephrosis of either kidney. Normal color Doppler IMPRESSION: 1. Nonobstructing bilateral renal calculi. 2. Bilateral renal cysts. This document has been electronically signed by: Eladio Agudelo MD on 05/02/2024 15:28:50
--- NOTE | ~2024-05-01 | XR_ITS ---
EXAMINATION: XR ABDOMEN KUB CLINICAL INDICATION: N20.0 - Calculus of kidney COMPARISON: CT abdomen and pelvis 01/14/2023. TECHNIQUE: AP view of the abdomen. FINDINGS: Abundant stool lies over the renal shadows, obscuring details. No definite calcifications present although could easily be obscured by abundant stool. No abnormal small bowel dilatation. No organomegaly or large abdominal mass. Mild degenerative spinal changes and minimal hip joint changes. No suspicious bone lesions. Lung bases clear. There are vascular calcifications. XR/XR KUB IMPRESSION: Limited exam due to abundant stool. Subtle renal calcifications could easily be obscured. Electronically signed by: Charly Keene MD 05/02/2024 08:40 AM [facility]
--- OUTSIDE RECORDS SUMMARY | 2024-05-01 09:51 | XMS_ITS | Patient Health Record ---
Author Organization [facility] Address [address] [place] [phone] Care Team Providers Care Laser Set Up Operator Name Role Phone LURDES CRAWFORD N.P. Primary Care Provider Curtis Gomes [phone] REASON FOR REFERRAL No Information SOCIAL HISTORY Sex Assigned At : Social History Observation Description Sex Assigned At Unknown PLAN OF TREATMENT No Information Insurance Providers Payer Name Payer Address Payer Phone Subscriber Number Group Number Insured Name Patient Relationship to Insured Coverage Start Date Coverage End Date [facility] [address] [address] [place] [address] [id number] DIOGENES PRADHAN Self - patient is the insured
--- OUTSIDE RECORDS SUMMARY | 2024-05-01 09:51 | XMS_ITS | Encounter Summary ---
Author Organization [facility] Address [address] [facility] 7t [place] [address] Care Team Providers Care Analytical Data Miner Name Role Phone Cintia Ely Primary Care Provider [phone] Reason for Visit * Reason Onset Date Comments ER Follow-up 01/17/2023 Nurse Triage 01/17/2023 Encounter Details Date Type Department Care Team (Late st Contact Info) Description 01/17/2023 Telephone [facility] [address] [place] [address] Cintia Ely ANP [address] [place] [address] ER Follow-up; Nurse Triage Social History Tobacco Use Types Packs/Day Years Used Date Smoking Tobacco: Never Passive Smoke Exposure: Never Smokeless Tobacco: Never Alcohol Use Standard Drinks/Week Comments Never 0 (1 standard drink = 0.6 oz pur e alcohol) Housing Stability Answer Date Recorded What is your housing situation today? I have lyudmila salmon 01/03/[address] you li ve. Do you have problems with any of the following? None of the above 01/03/2023 Food Insecurity Answer Date Recorded Within the past 12 months, y ou worried that your food would run out before you got money to buy more: Not on file 01/03/2023 Within the past 12 months,th e food you bought just didn't last and you didn't have enough money to get more: Never True Transportation Answer Date Recorded In the past 12 months, has l ack of transportation kept you from medical appts, meetings, work or from getting things needed for daily living? No 01/03/2023 Utilities Answer Date Recorded In the past 12 months, has t he electric, gas, oil or water company threatened to shut off services in your home? No 01/03/2023 Depression Answer Date Recorded Patient Health Questionnaire-2 Score 0 03/01/2022 Sex and Gender Information Value Date Recorded Sex Assigned at Male 01/11/2022 10:39 AM EDT Legal Sex Male 10:39 AM EDT Gender Identity Male 01/11/2022 10:39 AM EDT Sexual Orientation Straight 01/11/2022 10 :39 AM EDT documented as of this encounter Miscellaneous Notes * Telephone Encounter - Ana Finch RN - 01/17/2023 11:43 AM EST Called pt. He said that he went to [facility] ED on 01/13/23 because he was bleeding from his rectum. Provider checked pt. He stated to pt. That pt needed to go to a Hospital in [facility] for colon surgery.Pt. Was then transported to [facility] from 01/14/23 at 1am until 01/15/23 at noon. Provider gave pt. Something to control his bleeding from his rectum and The bleeding stopped. Provider in [facility] stated that pt. Did not need surgery anymore and discharged pt. Home. Pt. Has a scheduled colonoscopy for 02/15/23 at [facility] but wants sooner colonoscopy scheduled to see what is wrong with Colon. [phone]. Pt. Wants all notes in his chart for PCP from [facility] and from [facility]. Pt. Denies any rectal bleeding x 2 days but, does state that his stools are dark. Pt. Denies any stomachpain, cramping or bloating. No fever. States he feels fine. Pt. Wants a call from PCP nurse team when all his Hospital notes get put into his chart at [facility]. Pt. States he does not need a HDF appt. Because he is already being followed up by Gastro in [facility]. I will send this note to clinical manager urgent care for green team and also to team nurses for fu with pt. When records get put into pt. Chart. Pt. Wants phone call from nurses when notes from [facility] ED and [facility] get put into pt. Chart. * Telephone Encounter - Izzy Villegas - 01/17/2023 10:47 AM EST Tc from pt calling to report ED visit on 01/13/2023 at [facility]. Seen for rectal bleeding. Patient advised will forward to team nurse for follow up. Symptom: Rectal Symptoms - Not Bleeding Outcome: Schedule an appointment to be seen within 3 days Reason: Caller denied all higher acuity questions Colonoscopy 02/15 The caller accepted this outcome Romansh Speaker documented in this encounter Plan of Treatment Not on file documented as of this encounter Visit Diagnoses Not on filedocumented in this encounter Care Teams Analytical Data Miner Relationship Specialty Start Date End Date Cintia Ely ANP [address] [place] [address] PCP - General Family Medicine 04/30/21 documented as of this encounter
--- OUTSIDE RECORDS SUMMARY | 2024-05-01 09:51 | XMS_ITS | Encounter Summary ---
Author Organization [employer] Address [address] [facility] 7t [place] [address] Care Team Providers Care Collision Repair Technician Name Role Phone Cintia Ely Primary Care Provider [phone] Reason for Visit * Reason Comments Med Refill Encounter Details Date Type Department Care Team (Late st Contact Info) Description 06/28/2023 Refill [facility] MEDICINE [address] [place], [place] [phone] Cintia Ely ANP [address] [place] [address] Cerebrovascular accident (CVA), unspecified mechanism (CMS/HCC) Social History Tobacco Use Types Packs/Day Years [...] AM EDT documented as of this encounter Plan of Treatment Not on file documented as of this encounter Visit Diagnoses Diagnosis Cerebrovascular accident (CVA), unspecified mechanism (CMS/HCC) documented in this encounter Care Teams Collision Repair Technician Relationship Specialty Start Date End Date Cintia Ely ANP [address] [place] [address] PCP - General Family Medicine 04/30/21 documented as of this encounter
--- OUTSIDE RECORDS SUMMARY | 2024-05-01 09:51 | XMS_ITS | Encounter Summary ---
Author Organization [employer] Address [address] [facility] 7t [place] [address] Care Team Providers Care Motorcycle Designer Name Role Phone Cintia Ely Primary Care Provider [phone] Reason for Visit * Reason Comments Med Refill Encounter Details Date Type Department Care Team (Late st Contact Info) Description 01/03/2023 Refill [facility] MEDICINE [address] [place], [place] [phone] Cintia Ely ANP [address] [place] [address] Cerebrovascular accident (CVA), unspecified mechanism (CMS/HCC) Social [...] (CMS/HCC) documented in this encounter Care Teams Motorcycle Designer Relationship Specialty Start Date End Date Cintia Ely ANP [address] [place] [address] PCP - General Family Medicine 04/30/21 documented as of this encounter
--- OUTSIDE RECORDS SUMMARY | 2024-05-01 09:51 | XMS_ITS | Clinical Summary ---
Author Organization [employer] Address [address] [facility] 7t [place] [address] Care Team Providers Care Retail Management Trainee Name Role Phone Cintia Ely Primary Care Provider [phone] Allergies No known active allergies Medications omega-3 (Fish Oil) 1000 MG capsule PT REPORTS PURCHASING OTC Active solifenacin (VESIcare) 10 MG tablet Take 1 tablet by mouth at bed time. 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/p CVA 07/01/2022 Overactive bladder 07/01/2022 Chronic hepatitis C without hepatic coma 022 Healthcare maintenance 03/01/2022 Assessment & Plan (07/01/2022 12:52 PM EDT): PCV 20: 07/01/2022 Td: 07/01/2022 COVID booster: due for bivalent Shingrix: due Eye exam: clarify at follow-up Lung ca screening (50+ smoking, 20 PYH, quit in last 15yrs): NA Colon ca screening (45+): Established w/ C GI, normal 2007 DEXA (F 65+, M 70+; with risk factors, earlier): Cont to consider AAA screening: non-smoker Bilateral carotid artery stenosis 09/01/2021 Cerebrovascular accident 06/05/2021 Hyperlipidemia 06/05/2021 Encounters Date Type Department Care Team Description 03/06/2024 Refill [facility] MEDICINE [address] [place] [address] Cintia Ely ANP Cerebrovascular accident (CVA), unspecified mechanism (CMS/HCC) 02/05/2024 Refill [facility] [place] [address] Cintia Ely ANP from Last 3 Months Immunizations Name Administration Dates Next Due Influenza High-dose Quadriva lent Preservative Free 12/07/2022,12/02/2021,11/13/2019 Influenza Quadrivalent Adjuvanted 11/27/2020 Influenza injectable quadriv alent preservative free 12/11/2021,12/24/2015 Influenza, High Dose Seasona l, Preservative Free 12/22/2017,11/22/2017 Influenza, IIV3, injectable 12/24/2016 Influenza, trivalent, adjuvanted 11/15/2018 Pfizer Covid-19 Vaccine 12+ 06/14/2020,,05/24/2020 Pneumococcal Conjugate PCV 20 07/01/2022 Td (adult), 5 Lf tetanus tox oid, preservative free, adsorbed 07/01/2022 Tdap 02/18/2010 Zoster, Recombinant 09/10/2022 Social History Tobacco Use Types Packs/Day Years Used Date Smoking Tobacco: Never Passive Smoke Exposure: Never Smokeless Tobacco: Never Tobacco Cessation:Counseling Given: Not Answered Alcohol Use Standard Drinks/Week Comments Never 0 (1 standard drink = 0.6 oz pur e alcohol) Depression Answer Date Recorded Patient Health Questionnaire-9 Score 0 07/22/2023 Patient Health Questionnaire-9 Score 0 07/22/2023 Last PHQ-9: Questionnaire Data Not on file 0 07/22/2023 Housing Stability Answer Date Recorded What is your housing situation today? I have lyudmila salmon 07/22/[address] you li ve. Do you have problems with any of the following? None of the above 07/22/2023 Food Insecurity Answer Date Recorded Within the past 12 months, y ou worried that your food would run out before you got money to buy more: Never True 07/22/2023 Within the past 12 months,th e food you bought just didn't last and you didn't have enough money to get more: Never True 12/2023 Transportation Answer Date Recorded In the past 12 months, has l ack of transportation kept you from medical appts, meetings, work or from getting things needed for daily living? No 07/22/2023 Utilities Answer Date Recorded In the past 12 months, has t he electric, gas, oil or water company threatened to shut off services in your home? No 07/22/2023 Depression Answer Date Recorded Patient Health Questionnaire-2 Score 0 07/22/2023 Sex and Gender Information Value Date Recorded Sex Assigned at Male 01/11/2022 10:39 AM EDT Legal Sex Male 10:39 AM EDT Gender Identity Male 01/11/2022 10:39 AM EDT Sexual Orientation Straight 01/11/2022 10 :39 AM EDT Last Filed Vital Signs Vital Sign Reading Time Taken Comments Blood Pressure 150/100 07/25/2023 2:01 PM EDT Pulse 96 07/25/2023 2:01 PM EDT Temperature 36.2 ??C (97.1 ??F) 07/22/2023 1:07 PM ED T Respiratory Rate 18 07/25/2023 2:01 PM EDT Oxygen Saturation 98% 07/22/2023 1:07 PM EDT Inhaled Oxygen Concentration - - Weight 87.8 kg (193 lb 9.6 oz) 07/22/2023 1:07 P M EDT Height 173.4 cm (5' 8.25 ) 07/01/2022 11:35 AM E DT Body Mass Index 29.22 07/01/2022 11:35 AM EDT Plan of Treatment Health Maintenance Due Date Last Done Comments CT Colonography 1951 Colonoscopy 1951 Colorectal Cancer Screening 1950 FIT DNA/Cologuard 1951 FIT 1951 FOBT 1950 Sigmoidoscopy 1951 Alcohol/Substance Use Screening 1963 Hepatitis A Vaccines (1 of 2 - Risk 2-dose series) 1970 Hepatitis B Vaccines (1 of 3 - Risk 3-dose series) 2011 RSV Patients and Patients Aged 60 years or older (1 - Risk 60-74 years 1-dose series) 2011 Zoster Vaccines (2 of 2) 11/05/2022 09/10/2022 Depression Screening 07/21/2024 07/22/2023, 07/22/19 SDOH Screening 07/21/2024 07/22/2023 Tobacco Screening 07/21/2024 07/22/2023 Lipid Panel 08/26/2026 08/26/2021 DTaP/Tdap/Td Vaccines (3 - Td or Tdap) 07/01/2032 07/01/2022, 02/18/2010 Pneumococcal Vaccine: 50+ Years Completed 07/01/2022 COVID-19 Vaccine Completed 02/07/2024, 05/2020, 06/01/2020, Additional history exists Influenza Vaccine Completed 02/07/2024, , 12/11/2021, Additional history exists HIB Vaccines Aged Out No longer eligi ble based on patient's age to complete this topic HPV Vaccines Aged Out No longer eligi ble based on patient's age to complete this topic IPV Vaccines Aged Out No longer eligi ble based on patient's age to complete this topic Meningococcal Vaccine Aged Out No srini cristobal eligible based on patient's age to complete this topic RSV under 20 months Aged Out No longe r eligible based on patient's age to complete this topic Rotavirus Vaccines Aged Out No longer eligible based on patient's age to complete this topic Procedures Procedure Name Priority Date/Time Associated Diagnosis Comments LIPID PANEL, STANDARD Routine 08/26/2021 10:14 AM EDT from Last 3 Months or Most Recently Relevant to Health Maintenance Results * (ABNORMAL) LIPID PANEL, STANDARD (08/26/2021 10:14 AM EDT) Chol/HDLC Ratio 4.9 <5.0 (calc) [facility] Cholesterol, Total 143 <200 mg/dL [facility] HDL Cholesterol 29(L) > OR = 40 mg/dL [facility] LDL Cholesterol 91 mg/dL (calc) [facility] Comment: Reference range: <100 ?? Desirable range <100 mg/dL for primary prevention; ?? <70 mg/dL for patients with CHD or diabetic patients ?? with > or = 2 CHD risk factors. ?? LDL-C is now calculated using the Jeronimo-Brink ?? calculation, which is a validated novel method providing ?? better accuracy than the Friedewald equation in the ?? estimation of LDL-C. ?? Jeronimo SS et al. JAYNA. 2013;310(19): 1748-9349 ?? (http://[employer]/faq/EQB448) Non-HDL Cholesterol 114 <130 mg/dL (calc) [facility] Comment: For patients with diabetes plus 1 major ASCVD risk ?? factor, treating to a non-HDL-C goal of <100 mg/dL ?? (LDL-C of <70 mg/dL) is considered a therapeutic ?? option. Triglycerides 135 <150 mg/dL [facility] 08/26/2021 10:1 4 AM EDT Formerly [facility] LAB BLOOD ORDERABLES Final Resul t [facility] [address] from Last 3 Months or Most Recently Relevant to Health Maintenance Insurance [facility] MEDICARE REPLACEMENT PPO Care Teams Retail Management Trainee Relationship Specialty Start Date End Date Cintia Ely ANP [address] [place] [phone] PCP - General Family Medicine 04/30/21
--- OUTSIDE RECORDS SUMMARY | 2024-05-01 09:51 | XMS_ITS ---
Author Organization [facility] Address [address] [place] [phone] Care Team Providers Care Television Repairman Name Role Phone LURDES CRAWFORD N.P. Primary Care Provider Curtis Gomes [phone] REASON FOR VISIT colon screening Encounters Encounter Location Date Provider Diagnosis [facility] [address] [place] [phone] 12/10/2022 Curtis Duncan PLAN OF TREATMENT No Information
--- OUTSIDE RECORDS SUMMARY | 2024-05-01 09:51 | XMS_ITS | Clinical Summary ---
Author Organization [facility] Address [address] [place] [address] Care Team Providers Care Yarn Rewinder Name Role Phone Unavailable Primary Care Provider Unavailabl e Allergies No known active allergies Medications Medication Sig Dispensed Refills Start Date End Date Status alfuzosin (UROXATRAL) 10 MG 24 hr tablet TOME IRENE TABLETA POR V A ORAL CADA MA TYRONE 12/03/2022 Active fesoterodine ER (TOVIAZ) 8 MG tablet TOME IRENE TABLETA TODOS LOS D 12/06/2022 Active rosuvastatin (CRESTOR) 20 MG tablet TOME IRENE TABLETA TODOS LOS D 11/19/2022 Active senna (SENOKOT) 8.6 MG Tab tabletIndications:Hist ory of GI diverticular bleed Take 2 tablets by mouth daily as needed for constipation. 60 tablet 01/15/2023 Active Active Problems Problem Noted Date Diagnosed Date Lower GI bleed 01/14/2023 Benign prostatic hyperplasia with urinary hesita ncy 01/14/2023 History of stroke 01/14/2023 Mixed hyperlipidemia 01/14/2023 Social History Tobacco Use Types Packs/Day Years Used Date Smoking Tobacco: Never Assessed [facility] Utilities Answer Date Recorded In the past 12 months has [employer], gas, oil, or water Group Therapy Records threatened to shut off services in your home? No 01/14/2023 AUDIT-C Answer Date Recorded Q1: How often do you have a drink containing alcohol? 4 or more times a week 01/14/2023 Q2: How many drinks containi ng alcohol do you have on a typical day when you are drinking? 1 or 2 Q3: How often do you have si x or more drinks on one occasion? Daily or almost daily 01/14/2023 Overall Financial Resource Strain (CARDIA) Answe r Date Recorded How hard is it for you to pa y for the very basics like food, housing, medical care, and heating? Not hard at all 01/14/2023 PHQ-2 Answer Date Recorded PHQ-2 Total Score 0 01/14/2023 Hunger Vital Sign Answer Date Recorded Within the past 12 months, y ou worried that your food would run out before you got the money to buy more. Never true 01/15/20 23 Within the past 12 months, t he food you bought just didn't last and you didn't have money to get more. Never true 01/14/2023 PRAPARE - Transportation Answer Date Re corded In the past 12 months, has l ack of transportation kept you from medical appointments or from getting medications? No 05/2022 In the past 12 months, has l ack of transportation kept you from meetings, work, or from getting things needed for daily living? No 01/14/2023 Housing Stability Vital Sign Answer Nam e Recorded In the last 12 months, was t here a time when you were not able to pay the mortgage or rent on time? No 01/14/2023 [address] Lived in the Last Year Not on f ile 01/14/2023 In the last 12 months, was t here a time when you did not have a steady place to sleep or slept in a jail (including now)? No 01/14/2023 Sex and Gender Information Value Date Recorded Sex Assigned at Male 01/14/2023 9:38 AM EDT Gender Identity Male 01/14/2023 9:38 AM EDT Sexual Orientation Heterosexual (straight) 01/14 9:38 AM EDT Last Filed Vital Signs Vital Sign Reading Time Taken Comments Blood Pressure 107/72 01/15/2023 7:00 AM EDT Pulse 68 01/15/2023 7:00 AM EDT Temperature 36.9 ??C (98.4 ??F) 01/15/2023 7:00 AM ED T Respiratory Rate 18 01/15/2023 7:00 AM EDT Oxygen Saturation 94% 01/15/2023 7:00 AM EDT Inhaled Oxygen Concentration - - Weight 86.7 kg (191 lb 2.2 oz) 01/14/2023 2:50 P M EDT Height 175.3 cm (5' 9 ) 01/14/2023 2:50 PM EDT Body Mass Index 28.23 01/14/2023 2:50 PM EDT Plan of Treatment Health Maintenance Due Date Last Done Comments Hepatitis C Virus Screening 1951 DTaP/Tdap/Td Vaccines (1 - Tdap) 1970 Colonoscopy 1996 Pneumococcal Vaccines 50+ (1 of 1 - PCV) 2001 Zoster (Shingles) Vaccine (1 of 2) 2001 Influenza Vaccine 10/13/2023 12/11/2021, , 11/27/2020, Additional history exists COVID-19 Vaccine (2 - season) 2023 06/01/2020 RSV Vaccine 60 years and older and Patients (1 - 1-dose 75+ series) 2026 Hepatitis B Vaccines Aged Out No long er eligible based on patient's age to complete this topic Advance Directives * Full Code (Latest Code Status on File) Date Activated Date Inactivated Comments 01/14/2023 1:51 PM
--- OUTSIDE RECORDS SUMMARY | 2024-05-01 09:51 | XMS_ITS | Encounter Summary ---
Author Organization [employer] [facility] Address [address] [facility] 7t [place] [address] Care Team Providers Care Pie Icer Machine Name Role Phone Cintia Ely Primary Care Provider [phone] Encounter Details Date Type Department Care Team (Late st Contact Info) Description 02/26/2022 Orders Only [facility] MEDICINE [address] [place] [address] Radha Patton, RN Social History Tobacco Use Types Packs/Day Years Used Date Smoking Tobacco: Never Assessed Depression Answer Date Recorded Patient Health Questionnaire-2 [...] on filedocumented in this encounter Care Teams Pie Icer Machine Relationship Specialty Start Date End Date Cintia Ely ANP [address] [place] [address] PCP - General Family Medicine 04/30/21 documented as of this encounter
--- OUTSIDE RECORDS SUMMARY | 2024-05-01 09:51 | XMS_ITS | Encounter Summary ---
Author Organization [employer] Address [address] [facility] 7t [place] [address] Care Team Providers Care Garnett Mechanic Name Role Phone Cintia Ely Primary Care Provider [phone] Reason for Visit * Reason Comments Med Refill Encounter Details Date Type Department Care Team (Late st Contact Info) Description 11/28/2023 Refill [facility] MEDICINE [address] [place], [place] [phone] Cintia Ely ANP [address] [place] [address] Cerebrovascular accident (CVA), unspecified mechanism (CMS/HCC) Social [...] unspecified mechanism (CMS/HCC) documented in this encounter Additional Health Concerns Assessment Noted Time PHQ-9 Depression Total Score: 0 07/22/19 24 1:07 PM EDT documented as of this encounter Care Teams Garnett Mechanic Relationship Specialty Start Date End Date Cintia Ely ANP [address] [place] [phone] PCP - General Family Medicine 04/30/21 documented as of this encounter
== END 2024-05-01 09:13 | disposition home or self-care (01) ==
LOC: HO.US 09:12
PROVIDERS: PCP Family Medicine; Visit Provider Urology
DX: N20.0 Calculus of kidney (principal); N28.1 Cyst of kidney, acquired
CPT/HCPCS: 74018; 76775

== ENCOUNTER → 2024-05-01 09:15 | Outpatient (BNV) | payer MEDICARE, SELFPAY | PROVIDERS: PCP Family Medicine; Visit Provider Radiology Diagnostic Radiology | DX: N20.0 Calculus of kidney (principal); N28.1 Cyst of kidney, acquired | CPT/HCPCS: 74018; 76775 ==

== ENCOUNTER 2024-08-20 15:45 | Outpatient (AMB) | payer MEDICARE, SELFPAY ==
--- NOTE | 2024-08-20 15:48 | MHC.OFFVIS ---
Intake Visit Reasons: 1y/US/KUB/PSA Intake Note: Patient presents today for 1 year follow up/US/KUB/PSA 05/01 KUB 05/02 Renal US Urology Meds- Alfuzosin & Toviaz Allergies to Antibiotic- No Known Allergies Blood Thinner- Aspirin PVR:0ml Supervisor Special Services Required: Yes Supervisor Special Services Language: Casing Finisher And Stuffer Services: Supervisor Special Services Present Supervisor Special Services Name: April Daley Information Interpreted: non-clinical & clinical Accompanied by: Self / Same As Patient Allergies No Known Allergies Allergy (Verified 08/20/24 15:49) Medication List - Last Reconciled 08/20/24 by Thad Scott MD alfuzosin ER 10 mg PO QAM aspirin 81 mg PO DAILY finasteride (Proscar) 5 mg PO DAILY magnesium hydroxide (Milk of Magnesia) 5 mL PO BEDTIME PRN rosuvastatin 20 mg PO DAILY vibegron (Gemtesa) 75 mg PO DAILY HPI Comments Details: 08/20/24-- History of Present Illness - The patient is a 74-year-old male presenting with management of nephrolithiasis and Benign Prostatic Hyperplasia (BPH) with lower urinary tract symptoms. - Renal ultrasound from May 02, 2024, showed small bilateral kidney stones with no increase in size. - Increased fluid intake and dietary modifications, including reducing high oxalate foods and adding lemon, were suggested. - Currently on alfuzosin 10 mg for BPH, taken in the afternoon, with noted insufficient control of symptoms. - Insurance did not cover a previously prescribed medication, Crystal, for urinary frequency. Urinary Symptoms Review - Urinary frequency: requires urination every 2-3 hours. - Alfuzosin 10 mg taken in the afternoon. - Previous management of symptoms was unsuccessful due to insurance issues with medication coverage. - Increased fluid intake as a management strategy for nephrolithiasis. Results - Renal ultrasound (May 02, 2024): Identified small bilateral kidney stones with no increase in size. Discussion Notes I discussed with the patient the ongoing management of nephrolithiasis, emphasizing the importance of maintaining adequate hydration and dietary modifications, including reduced intake of high oxalate foods. For the management of BPH, I explained the addition of Gemtesa for urinary frequency and finasteride to shrink the prostate. The likelihood of improved urinary symptoms over three months was indicated. Alternatives regarding BPH management, including adjusting current medication due to insurance issues, were explored. Consent for the planned administration of new medications was obtained, and follow-up in four months with a cystoscopy was scheduled. Plan - Encourage fluid intake and dietary modification to manage nephrolithiasis. - Prescribe Gemtesa for urinary frequency. - Prescribe finasteride for prostate size reduction with a reevaluation in four months. - Plan for cystoscopy and bladder ultrasound at the next visit. - Address insurance issues for proposed medications. Patient Instructions Patient was informed and verbally consented to the use of an ambient scribe for clinic note documentation during this visit. 08/24/23--Discussed 24 hour urine results: Total volume 560 mL, Calcium 78 mg; Oxalate 27 mg, Sodium 54, Citrate 550 mg. Instructed on importance of fluid intake, the patient states his bladder symptoms are improved with the combination Toviaz and alfuzosin. Will continue to monitor kidney stones. He has scheduled follow-up for 05/31/2024 with renal ultrasound, KUB and PSA prior. 05/20/23---Don is a 73-year-old male who is here for follow-up for OAB symptoms, BPH and nephrolithiasis. He is prescribed Toviaz and alfuzosin 10 mg. He has last seen on 02/25/23, I discussed metabolic workup for kidney stones he did not have the 24 hour urine done, blood work for serum calcium and parathyroid hormone levels which viewed with him. Calcium and parathyroid hormone levels obtained though 03/03/2023---9.7 and 55.1 respectively PSA-08/19/2022--1.26 ng/mL Evaluation: Urinalysis -leukocytes negative, blood negative Bladder scan PVR 24 mL. Plan--continue Toviaz, alfuzosin, follow-up in 1 year KUB and PSA prior. 02/25/23--Don is a 72-year-old male who is here for follow-up for OAB symptoms and BPH. Co-morbidity- history of stroke. Here in follow up, had some imaging done that I reviewed, CT angiogram. He is prescribed Toviaz 5 mg and Alfuzosin 10 mg. He states he is voiding without difficulty. nocturia episodes 2-3 times per night. I have reviewed CAT scan results with the patient- 01/14/23-KIDNEYS AND URETERS: The kidneys are normal in size, and attenuation. There are scattered bilateral renal calculi measuring up to 3 mm lower pole right kidney. There is no hydronephrosis. Multiple bilateral renal cysts are noted measuring up to 6.3 cm upper pole left kidney. Plan discussed--Continue taking Toviaz 5 mg and Alfuzosin 10 mg. Metabolic workup, 24 hr urine, serum Ca, PTH Testing: Renal US results reviewed?03/31/2022-- Suggestive of a small stone of the lower pole of the left kidney. Benign, Bosniak category 1 and category 2 cysts of the kidneys. Mild prostatomegaly. Postvoid bladder residual of 25 mL. Bladder US results reviewed?06/07/22-- Suggestive of [id number]-[id number] postvoid residual bladder volume and moderate prostate enlargement. Labs reviewed--PSA--06/22/2021--1.91. [facility] Medical History History of CVA (cerebrovascular accident) without residual deficits Colon cancer screening Renal cysts, acquired, bilateral History of stroke Screening PSA (prostate specific antigen) Pre-op examination Bilateral inguinal hernia Rectal bleed CVA (cerebral vascular accident) Bilateral carotid artery stenosis OAB (overactive bladder) BPH (benign prostatic hyperplasia) Elevated cholesterol Retinal artery branch occlusion of right eye Surgical History History of esophagogastroduodenoscopy (EGD) H/O colonoscopy Social History Household Members: None Housing: Apartment Do you presently have visiting nurse or other home services: No Alcohol intake: current Alcohol intake frequency: former alcohol drinker Alcohol type: wine Patient Tobacco Use Status: Never used Tobacco service: No Current occupational status: retired Review of Systems Const All systems reviewed & are unremarkable except as noted in HPI and below Reports no additional complaints Eyes Reports no additional complaints ENT Reports no additional complaints Card Reports no additional complaints Resp Reports no additional complaints GI Reports no additional complaints Reports as per HPI Musc Reports no additional complaints Skin/Breast Reports system reviewed and no additional complaints, except as documented Neuro Reports no additional complaints Psych Reports no additional complaints Endo Reports no additional complaints David/Lymph Reports no additional complaints Aller/Immun Reports no additional complaints Results AMB Urinalysis, Automated UA Leukoctes 0 Chandrika/uL Last Edit by Ara Dickson on 08/20/24 16:44 UA Nitrite Negative Last Edit by Ara Dickson on 08/20/24 16:44 UA Urobilinogen 1 mg/dL Last Edit by Ara Dickson on 08/20/24 16:44 UA Protein 15 mg/dL Last Edit by Ara Dickson on 08/20/24 16:44 UA pH 6.0 Last Edit by Ara Dickson on 08/20/24 16:44 UA Blood 0 Brendan/uL Last Edit by Crystal Dickson on 08/20/24 16:44 UA Specific [place] 1.020 Last Edit by Ara Dickson on 08/20/24 16:44 UA Ketone Negative Last Edit by Ara Dickson on 08/20/24 16:44 UA Bilirubin 0 mg/dL Last Edit by Ara Dickson on 08/20/24 16:44 UA Glucose 0 mg/dL Last Edit by Ara Dickson on 08/20/24 16:44 Results Reviewed Results Reviewed: Date of Service: 05/01/24 CLINICAL HISTORY: N20.0 - Calculus of kidney US Renal Comparison: None Findings: Right kidney normal size and echotexture,12.2 cm length. Multiple right renal cysts, largest of which is in the superior pole measuring 74 mm. 2 nonobstructing right renal calculi, largest of which is in the interpolar kidney measuring 3 mm. Left kidney normal size and echotexture, 11.7 cm length. Multiple cysts, largest of which is in the interpolar kidney with septations measuring 53 mm. Multiple calculi, largest of which is in the superior pole measuring 3 mm. No hydronephrosis of either kidney. Normal color Doppler IMPRESSION: 1. Nonobstructing bilateral renal calculi. 2. Bilateral renal cysts. Date of Service: 01/14/23 EXAMINATION: CT ANGIOGRAM ABDOMEN AND PELVIS CLINICAL INFORMATION: GI bleed. COMPARISON: None available. TECHNIQUE: Multidetector volumetric imaging was performed from the lower chest through the abdomen to the pubic symphysis following the administration of 80 mL Omnipaque 350 intravenous contrast. No contrast reaction reported Sagittal, coronal, and MIP oblique sagittal reformatted images were obtained on the CT workstation, uploaded to PACS, and reviewed. This CT examination was performed using dose optimization techniques as appropriate, variously including the following: *Automated exposure control *Adjustment of mA and/or kV according to patient size (this includes techniques or standardized protocols for targeted exams where dose is matched to indication/reason for exam; i.e. extremities or head) *Use of iterative reconstruction technique DLP: 1699 mGy-cm FINDINGS: LUNG BASES: There is minimal scarring at the right lung base. LIVER, GALLBLADDER, AND BILIARY TREE: The liver is slightly irregular in contour. No focal hepatic lesion or biliary ductal dilatation is present. The gallbladder is unremarkable with no evidence of radiopaque gallstones, gallbladder wall thickening, or obvious pericholecystic inflammatory changes. PANCREAS: Unremarkable. SPLEEN: Unremarkable. ADRENAL GLANDS: Unremarkable. KIDNEYS AND URETERS: The kidneys are normal in size, and attenuation. There are scattered bilateral renal calculi measuring up to 3 mm lower pole right kidney. There is no hydronephrosis. Multiple bilateral renal cysts are noted measuring up to 6.3 cm upper pole left kidney. BLADDER: Unremarkable. GASTROINTESTINAL TRACT: There are diverticula of the transverse, descending and the sigmoid colon. There is mild infiltrative change along a proximal descending colonic diverticula. There is contrast extravasation lower descending colon with contrast accumulation on delayed imaging. The appendix is visualized and is within normal limits. ABDOMINAL WALL: There is a small umbilical hernia containing fat. LYMPH NODES: Normal. VASCULAR: There is atherosclerotic plaque of the abdominal aorta with an infrarenal bulge measuring up to 2.4 cm. 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 PELVIC VISCERA: There is prostate gland hypertrophy. OSSEOUS STRUCTURES: There is diffuse gbky-ca-aldjqolx thoracolumbar disc degenerative change. There is a likely chronic compression fracture of T12. IMPRESSION: Diverticula of the transverse, descending and sigmoid colon. Contrast extravasation and accumulation lower descending colon consistent with active GI bleeding likely related to diverticular disease. There is mild infiltrative change along a single diverticula of the proximal descending colon possibly early diverticulitis. Nonobstructing renal calculi. Irregular liver contour possibly hepatocellular disease/early cirrhosis. 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 Prostate gland hypertrophy. Assessment & Plan Assessment & Plan (1) Increased urinary frequency: Code(s): R35.0 - Frequency of micturition Category: Medical (2) BPH (benign prostatic hyperplasia): Code(s): N40.0 - Benign prostatic hyperplasia without lower urinary tract symptoms Category: Medical Orders: Orders US bladder 3 Months N40.0 - Benign prostatic hyperplasia without lower urinary tract symptoms, R35.0 - Frequency of micturition AMB Urinalysis Automated Today Z13.9 - Encounter for screening, unspecified Medications: New finasteride (Proscar) 5 mg PO DAILY 90 tabs 3RF vibegron (Gemtesa) 75 mg PO DAILY 30 tabs 5RF Patient Instructions: The patient had an opportunity to ask questions regarding treatment plan. The patient expressed understanding and agreement with the above treatment plan. The patient is aware they should contact our office by phone for worsening of their current condition or the appearance of new symptoms. Compliance is encouraged with any medications and followup testing that is ordered. It is a privilege to be allowed the opportunity to participate in the urologic care of your patient. If you have any questions or concerns regarding treatment for the above conditions please do not hesitate to contact me. The office telephone contact is [phone]. This note is constructed in part using voice recognition software. While every effort has been made to ensure accuracy patented hogshead assembler errors may have been included. Yours sincerely, Thad Scott MD Scribe Plan - Not visible on output: Patient was informed and verbally consented to the use of an ambient scribe for clinic note documentation during this visit. Coding Level of Care Code Est Pt Level 4 (07409) Complex EM visit Add On G2211 Diagnoses Increased urinary frequency R35.0 BPH (benign prostatic hyperplasia) N40.0
--- OUTSIDE RECORDS SUMMARY | 2024-08-20 17:26 | XMS_ITS | Encounter Summary ---
Author Organization [employer] Address [address] [place] [address] Care Team Providers Care Mainframe Systems Engineer Name Role Phone Cintia Ely Primary Care Provider [phone] Encounter Details Date Type Department Care Team (Late st Contact Info) Description 02/26/2022 Orders Only [facility] [address] [place] [address] Radha Patton, RN Social History Tobacco Use [...] AM EDT documented as of this encounter Functional Status * Over the past 2 weeks, how often have you been bothered by any of the following problems? Question Answer Date of Assessment Author Little interest or pleasure in doing things Not at all 03/01/2022 11:15 AM Doug Hancock MA Feeling down, depressed, or hopeless Not at all 03/01/2022 11:15 AM Doug Hancock MA Patient Health Questionnaire-2 Score 0 03/01/2022 11:15 AM Malu Hancock MA documented as of this encounter Plan of Treatment Not on file documented as of this encounter Visit Diagnoses Not on filedocumented in this encounter Care Teams Mainframe Systems Engineer Relationship Specialty Start Date End Date Cintia Ely ANP [address] [place] [address] PCP - General Family Medicine 04/30/21 documented as of this encounter
== END 2024-08-20 16:59 | disposition home or self-care (01) ==
LOC: HO.HUSH 15:46
PROVIDERS: PCP Family Medicine; Visit Provider Urology
DX: Z13.9 Encounter for screening, unspecified (principal)

== ENCOUNTER → 2024-08-20 15:45 | Outpatient (BNVA) | payer MEDICARE, SELFPAY | PROVIDERS: PCP Family Medicine; Visit Provider Urology | DX: N40.0 Benign prostatic hyperplasia without lower urinary tract symptoms (principal); R35.0 Frequency of micturition | CPT/HCPCS: 81003 ==

== ENCOUNTER 2024-11-13 13:35 | Outpatient (AMB) | payer MEDICARE, SELFPAY ==
--- NOTE | 2024-11-13 13:40 | MHC.OFFVIS ---
Vital Signs 11/13/24 13:41 Height 5 ft 9 in Weight 190 lb 14.725 oz BMI 28.2 BP 128/93 H Blood Pressure Location Lt brachial Position Sitting Pulse 84 Intake Visit Reasons: 9 mos FUV Intake Note: Don returns today in follow up for colonoscopy screening. CC: Patient states that he is having his bladder checked d/t urinary frequency. He states that he is eating more fiber and is having regular BMs. 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 pylori infection: Comment: confirmed eradicated stool antigen 01/2024 Code(s): A04.8 - Other specified bacterial intestinal infections Category: Medical (2) GI bleed: Comment: Pt had EGD/colonoscopy and WCE with no major source found Code(s): K92.2 - Gastrointestinal hemorrhage, unspecified Category: Medical (3) Refusal of blood transfusions as patient is Moravian: Code(s): Z53.1 - Procedure and treatment not carried out because of patient's decision for reasons of belief and group pressure Category: Medical (4) Anemia: Code(s): D64.9 - Anemia, unspecified Category: Medical (5) Constipation: Comment: resolved with fiber therapy Code(s): K59.00 - Constipation, unspecified Category: Medical Plan [facility] #[place] LIve THE PROCEDURE NEEDS TO BE REPEATED IN 1 YEAR DUE TO POOR PREP. He will need a 2 day prep next time since he failed to completely clear this time. He denies any troubles with the prep. The procedure was well tolerated. The results were explained and the patient is agreeable to the follow-up interval as stated. The bowel pattern has returned to normal. Education was provided to tell any 1st degree relatives about their findings to be sure that they are screened by age 45. Educated that they will be put on a recall list when it is time for their repeat scope but should they move out of state or away from the hospital they will need to remember along with their primary to repeat the procedure in a timely fashion to avoid any adverse complications. I explain all of the results and he says his stomach is feeling well. He is using a fiber supplement and a roid cream since IH were found. His stomach feels well, and stool antigen confirms HP eradication. He is no longer taking any acid reducing medications. The only complaint he has is dizziness since my stroke. I explain that this COULD be neurologic, depending on what part of the brain was affected. He should discuss this with his neurologist. ROV 9 mos to reschedule scope Medications: Discontinued doxycycline hyclate Discontinued Reason: Patient Completed Course 100 mg PO BID 14 days 28 caps 0RF A04.8 - Other specified bacterial intestinal infections omeprazole Discontinued Reason: Doctor's Order 20 mg PO BID 30 days 60 caps 0RF A04.8 - Other specified bacterial intestinal infections bisacodyl (Dulcolax (bisacodyl)) colonoscopy prep Discontinued Reason: Patient Completed Course 10 mg (2 x 5 mg) PO BEDTIME 2 days 4 tabs 0RF K92.2 - Gastrointestinal hemorrhage, unspecified TODAY'S VISIT [place] Pablo Luong Use supposed to have a 1 year colonoscopy follow-up from his last because he failed to clear well. I instructed him that this time he will take bisacodyl 3 days prior each night at bedtime to try to facilitate his prep along with the GoLYTELY. He would prefer to have the procedure in 2025 rather than then at the end of this year. He denies any bowel upper GI problems. No problems in the past with anesthesia or sedation. He denies any cardiac or respiratory problems. No ID problems. There is no known FHX of CRC or polyps. He had a negative colonoscopy [place] [address] Duncan and subsequently had a colonoscopy in 2022 for GI bleeding with poor prep, and then again in 2024 with poor prep. [facility] Medical History (Updated 11/13/24 @ 15:43 by STEPHANE Connor) Pre-op examination History of CVA (cerebrovascular accident) without residual deficits Colon cancer screening Renal cysts, acquired, bilateral History of stroke Screening PSA (prostate specific antigen) Bilateral inguinal hernia Rectal bleed CVA (cerebral vascular accident) Bilateral carotid artery stenosis OAB (overactive bladder) BPH (benign prostatic hyperplasia) Elevated cholesterol Retinal artery branch occlusion of right eye Surgical History History of esophagogastroduodenoscopy (EGD) H/O colonoscopy Social History Household Members: None Housing: Apartment Do you presently have visiting nurse or other home services: No Alcohol intake: current Alcohol intake frequency: former alcohol drinker Alcohol type: wine Patient Tobacco Use Status: Never used Tobacco service: No Current occupational status: retired Review of Systems Const Denies fatigue, Denies fever(s), Denies night sweats, Denies poor appetite and Denies weight loss ENT Reports Normal hearing present, Denies dental pain, Denies dysphagia, Denies hearing loss, Denies mouth pain, Denies odynophagia, Denies throat swelling, Denies tongue swelling and Reports other (Dentition adequate) Card Reports no additional complaints Resp Reports no additional complaints GI Details: Denies abdominal pain, Denies melena, Denies bloating, Denies hematochezia, Denies constipation, Denies GI cramping, Denies dysphagia, Denies excessive flatus, Denies early satiety, Denies heartburn, Denies diarrhea, Denies nausea, Denies odynophagia, Denies vomiting and Denies hematemesis Skin/Breast Denies pruritus, Denies lesions, Denies rash and Denies jaundice Neuro Reports Normal hearing present and Denies Abnormal speech present Endo Denies fatigue Aller/Immun Denies throat swelling and Denies tongue swelling Physical Exam Vital Signs: Last Vital Signs Pulse 84 11/13/24 13:41 BP 128/93 H 11/13/24 13:41 BMI result Body Mass Index 28.2 Const General: cooperative, no acute distress, well developed and well groomed Nutritional Appearance: well nourished and obese centrally obese Orientation/consciousness: oriented to person, oriented to place and oriented to time Limitations: language barrier and ambulation with cane HEENT Head: Yes normocephalic and Yes atraumatic Eyes General: appearance normal, both eyes and all related structures Pupils: Equal, round and reactive pupils present Neck Neck: Yes normal visual inspection and Yes no lymphadenopathy Thyroid: Thyroid normal Resp Effort & Inspection: normal respiratory effort and able to speak in complete sentences Auscultation: clear to auscultation bilaterally Cardio Rate: regular rate Rhythm: regular rhythm Heart sounds: Normal, physiologic split S2 sound present Peripheral pulses: radial pulses present and posterior tibial pulses present GI Inspection: No distended, No Abdominal panniculus present and Yes obesity Palpation (GI): Soft to palpation, nontender, no guarding, not rigid and No hepatosplenomegaly present Percussion: Yes normal to percussion Auscultation: normal bowel sounds Rectal Exam - Male: Yes deferred Skin General skin exam: no rashes or lesions noted, turgor normal, skin not dry, no jaundice, No spider nevi and no striae Rashes: no rashes Nails: normal Neuro General: oriented to person, oriented to place and oriented to time Cranial nerves: Yes Equal, round and reactive pupils present and Yes Normal hearing present Speech: No Abnormal speech present Extrem General: Yes normal to inspection, No clubbing, No cyanosis and No edema Psych Appearance: grossly normal and well kempt Mental Status: mental status grossly normal Speech and movement: Normal speech and movement present Affect: normal affect Attitude: cooperative Thought process: Circumstantial thought process present and not confabulating Thought content: Normal thought content present Insight: Limited insight present (Psych) Judgement: Limited judgement present (Psych) Assessment & Plan Assessment & Plan (1) Pre-op examination: Code(s): Z01.818 - Encounter for other preprocedural examination Category: Medical (2) GI bleed: Comment: Pt had EGD/colonoscopy and WCE with no major source found Code(s): K92.2 - Gastrointestinal hemorrhage, unspecified Category: Medical (3) Refusal of blood transfusions as patient is Moravian: Code(s): Z53.1 - Procedure and treatment not carried out because of patient's decision for reasons of belief and group pressure Category: Medical Plan [place] #Lazaro Luong Use supposed to have a 1 year colonoscopy follow-up from his last because he failed to clear well. I instructed him that this time he will take bisacodyl 3 days prior each night at bedtime to try to facilitate his prep along with the GoLYTELY. He would prefer to have the procedure in 2025 rather than then at the end of this year. He denies any bowel upper GI problems. No problems in the past with anesthesia or sedation. He denies any cardiac or respiratory problems. No ID problems. There is no known FHX of CRC or polyps. He had a negative colon[place] in [address] Duncan and subsequently had a colonoscopy in 2022 for GI bleeding with poor prep, and then again in 2024 with poor prep Orders: Orders Comprehensive Met. Panel Today K92.2 - Gastrointestinal hemorrhage, unspecified, Z53.1 - Procedure and treatment not carried out because of patient's decision for reasons of belief and group pressure Colonoscopy - GI Use Only Today K92.2 - Gastrointestinal hemorrhage, unspecified, Z53.1 - Procedure and treatment not carried out because of patient's decision for reasons of belief and group pressure Complete Blood Count Auto Diff Today K92.2 - Gastrointestinal hemorrhage, unspecified, Z53.1 - Procedure and treatment not carried out because of patient's decision for reasons of belief and group pressure Medications: New peg 3350-electrolytes 236-22.74-6.74 -5.86 gram (Golytely) until fecal effluent is clear; do not exceed a total volume of 2,000 mL 240 mL PO Q10M 4,000 mL 0RF 1 day Z12.11 - Encounter for screening for malignant neoplasm of colon bisacodyl (Dulcolax (bisacodyl)) 10 mg (2 x 5 mg) PO BEDTIME 2 days 4 tabs 0RF bisacodyl (Dulcolax (bisacodyl)) 10 mg (2 x 5 mg) PO BEDTIME 8 tabs 0RF 2 days Coding Level of Care Code Est Pt Level 4 (33018) Diagnoses Pre-op examination Z01.818 GI bleed K92.2 Refusal of blood transfusions as patient is Moravian Z53.1 Time Spent (min) 36
[2024-11-13 13:41] VITALS: BP 128/93; PULSE 84; BMI 28.2
--- OUTSIDE RECORDS SUMMARY | 2024-11-13 14:52 | XMS_ITS ---
[facility] Name [facility] Organization Unknown Encounters Encounter Type Encounter Reason Primary Diagnosis Location Date Observation Personal history of other diseases of the digestive system Personal history of other diseases of the digestive system [facility] 01/14/2023 Ambulatory [facility] 01/14/2023 Care Team Organization Name Specialty Phone Email Start Date End Da te [facility] 01/14/2023 05/30/[address] [facility] 01/14/2023 01/14/2023
--- OUTSIDE RECORDS SUMMARY | 2024-11-13 14:52 | XMS_ITS | Encounter Summary ---
Author Organization [employer] Address [address] [place] [address] Care Team Providers Care Wind Tunnel Engineer Name Role Phone Cintia Ely Primary Care Provider [phone] Encounter Details Date Type Department Care Team (Late st Contact Info) Description 02/26/2022 Orders Only [facility] MEDICINE [address] [place] [address] Radha Patton, RN Social History Tobacco Use [...] on filedocumented in this encounter Care Teams Wind Tunnel Engineer Relationship Specialty Start Date End Date Cintia Ely ANP [address] [place] [address] PCP - General Family Medicine 04/30/21 documented as of this encounter
--- OUTSIDE RECORDS SUMMARY | 2024-11-13 14:53 | XMS_ITS | Encounter Summary ---
Author Organization [email or web address] Address [address] [place] [address] Care Team Providers Care Rn Invasive Name Role Phone Cintia Ely Primary Care Provider [phone] Reason for Visit * Reason Comments Med Refill Encounter Details Date Type Department Care Team (Late st Contact Info) Description 01/03/2023 Refill [facility] MEDICINE [address] [place], [place] [phone] Cintia Ely ANP [address] [place] [address] Cerebrovascular accident (CVA), unspecified mechanism (CMS/HCC) Social [...] (CMS/HCC) documented in this encounter Care Teams Rn Invasive Relationship Specialty Start Date End Date Cintia Ely ANP [address] [place] [address] PCP - General Family Medicine 04/30/21 documented as of this encounter
--- OUTSIDE RECORDS SUMMARY | 2024-11-13 14:53 | XMS_ITS | Encounter Summary ---
Author Organization [employer] Address [address] [place] [address] Care Team Providers Care Community Life Director Name Role Phone Cintia Ely Primary Care Provider [phone] Reason for Visit * Reason Comments Med Refill Encounter Details Date Type Department Care Team (Late st Contact Info) Description 11/28/2023 Refill [facility] MEDICINE [address] [place], [place] [phone] Cintia Ely ANP [address] [place] [address] Cerebrovascular accident (CVA), unspecified mechanism (CMS/HCC) Social [...] documented as of this encounter Care Teams Community Life Director Relationship Specialty Start Date End Date Cintia Ely ANP [address] [place] [id number] PCP - General Family Medicine 04/30/21 documented as of this encounter
--- OUTSIDE RECORDS SUMMARY | 2024-11-13 14:53 | XMS_ITS | Clinical Summary ---
Author Organization [facility] Address [address] [place] [address] Care Team Providers Care Drawing Supervisor Name Role Phone Unavailable Primary Care Provider Unavailabl e Allergies No known active allergies Medications alfuzosin (UROXATRAL) 10 MG 24 hr tablet TOME IRENE TABLETA POR V A ORAL CADA MA TYRONE 3 Active fesoterodine ER (TOVIAZ) 8 MG tablet TOME IRENE TABLETA TODOS LOS D 3 Active rosuvastatin (CRESTOR) 20 MG tablet TOME IRENE TABLETA TODOS LOS D 3 Active senna (SENOKOT) 8.6 MG Tab tabletIndications :History of GI diverticular bleed Take 2 tablets by mouth daily as needed for constipation . 60 tablet 3 Active Active Problems Problem Noted Date Diagnosed Date Lower GI bleed 01/14/2023 Benign prostatic hyperplasia with urinary hesita ncy 01/14/2023 History of stroke 01/14/2023 Mixed hyperlipidemia 01/14/2023 Social History Tobacco Use Types Packs/Day Years Used Date Smoking Tobacco: Never Assessed [facility] Utilities Answer Date Recorded In the past 12 months has [employer], gas, oil, or water company threatened to shut off services in your home? No 01/14/2023 AUDIT-C Answer Date Recorded Q1: How often do you have a drink containing alcohol? 4 or more times a week 01/14/2023 Q2: How many drinks containi ng alcohol do you have on a typical day when you are drinking? 1 or 2 3 Q3: How often do you have si [...] place to sleep or slept in a skilled nursing (including now)? No 01/14/2023 Sex and Gender Information Value Date Recorded Sex Assigned at Male 01/14/2023 9:38 AM EDT Legal Sex Male 5:30 AM EDT Gender Identity Male 01/14/2023 9:38 AM EDT Sexual Orientation Heterosexual (straight) 01/14 9:38 AM EDT Last Filed Vital Signs Vital Sign Reading Time Taken Comments Blood Pressure 107/72 01/15/2023 7:00 AM EDT Pulse 68 01/15/2023 7:00 AM EDT Temperature 36.9 C (98.4 F) 01/15/2023 7:00 AM EDT Respiratory Rate 18 01/15/2023 7:00 AM EDT Oxygen Saturation 94% 01/15/2023 7:00 AM EDT Inhaled Oxygen Concentration - - Weight 86.7 kg (191 lb 2.2 oz) 01/14/2023 2:50 P M EDT Height 175.3 cm (5' 9 ) 01/14/2023 2:50 PM EDT Body Mass Index 28.23 01/14/2023 2:50 PM EDT Plan of Treatment Health Maintenance Due Date Last Done Comments Advance Care Planning 1950 Hepatitis C Virus Screening 1950 DTaP/Tdap/Td Vaccines (1 - Tdap) 1970 Colonoscopy 1996 Pneumococcal Vaccines 50+ (1 of 1 - PCV) 2001 Zoster (Shingles) Vaccine (1 of 2) 2001 COVID-19 Vaccine (2 - season) 2023 06/01/2020 Influenza Vaccine 10/12/2024 12/11/2021, , 11/27/2020, Additional history exists RSV Vaccine 60 years and older and Patients (1 - 1-dose 75+ series) 2026 Hepatitis B Vaccines Aged Out No long er eligible based on patient's age to complete this topic Insurance [employer] MEDICARE OUT OF NETWORK Advance Directives * Full Code (Latest Code Status on File) Date Activated Date Inactivated Comments 01/14/2023 1:51 PM
--- OUTSIDE RECORDS SUMMARY | 2024-11-13 14:53 | XMS_ITS | Clinical Summary ---
Author Organization [employer] Address [address] [facility] [address] [place] [address] Care Team Providers Care Production Line Operator Name Role Phone Cintia Ely JOSE F Primary Care Provider [phone] Allergies No known active allergies Medications omega-3 (Fish Oil) 1000 MG capsule PT REPORTS PURCHASING OTC Active solifenacin (VESIcare) 10 MG tablet Take 1 tablet by mouth at bed time. Active rosuvastatin (Crestor) 20 MG tablet TAKE 1 TABLET BY MOUTH EVERY DAY 90 tablet 1 5 Active aspirin (Aspirin Low Dose) 81 MG EC tabletIndication s:Cerebrovascula r accident (CVA), unspecified mechanism (CMS/HCC) TOME 1 TABLETA POR VIA ORAL TODOS [place] 90 tablet 1 5 Active Active Problems Problem Noted Date Diagnosed [...] Encounters Date Type Department Care Team Description 08/23/[address] [facility] MEDICINE [address] [place] [address] Cintia Ely ANP Cerebrovascular accident (CVA), unspecified mechanism (CMS/HCC) from Last 3 Months Immunizations Immunization Administration Dates Next Due Influenza High-dose Quadriva [...] 96 07/25/2023 2:01 PM EDT Temperature 36.2 C (97.1 F) 07/22/2023 1:07 PM EDT Respiratory Rate 18 07/25/2023 2:01 PM EDT Oxygen Saturation 98% 07/22/2023 1:07 PM EDT Inhaled Oxygen Concentration - - Weight 87.8 kg (193 lb 9.6 oz) 07/22/2023 1:07 P M EDT Height 173.4 cm (5' 8.25 ) 07/01/2022 11:35 AM E DT Body Mass Index 29.22 07/01/2022 11:35 AM EDT Plan of Treatment Health Maintenance Due Date Last Done Comments CT Colonography 1950 FIT DNA/Cologuard 1950 FIT 1950 FOBT [...] 11/05/2022 09/10/2022 Depression Screening 07/21/2024 07/22/2023, 07/22/19 24 SDOH Screening 07/21/2024 07/22/2023 Tobacco Screening 07/21/2024 07/22/2023 COVID-19 Vaccine ( season) 2024 02/07/2024, 06/14/2020, 06/01/2020, Additional history exists Influenza Vaccine (#1) 2024 , 12/07/2022, 12/11/2021, Additional history exists Colonoscopy 02/28/2025 02/29/2024 Colorectal Cancer Screening 02/28/2025 Lipid Panel 08/26/2026 08/26/2021 DTaP/Tdap/Td Vaccines (3 - Td or Tdap) 07/01/2032 07/01/2022, 02/18/2010 Pneumococcal Vaccine: 50+ Years Completed 07/01/2022 HIB Vaccines Aged Out No longer eligi ble based on patient's age to complete this topic HPV Vaccines Aged Out No longer eligi ble based on patient's age to complete this topic IPV Vaccines Aged Out No longer eligi ble based on patient's age to complete this topic Meningococcal B Vaccine Aged Out No l onger eligible based on patient's age to complete [...] Procedure Name Priority Date/Time Associated Diagnosis Comments COLONOSCOPY Routine 02/29/2024 11:51 AM EST LIPID PANEL, STANDARD Routine 08/26/2021 10:14 AM EDT from Last 3 Months or Most Recently Relevant to Health Maintenance Results * Colonoscopy (02/29/2024 11:51 AM EST) us Historical Provider HEALTH MAINTENANCE Final Result * (ABNORMAL) LIPID PANEL, STANDARD (08/26/2021 10:14 AM EDT) Chol/HDLC Ratio 4.9 <5.0 (calc) [facility] Cholesterol, Total 143 <200 mg/dL [facility] HDL Cholesterol 29(L) > OR = 40 mg/dL [facility] LDL Cholesterol 91 mg/dL (calc) [facility] Comment: Reference range: <100 Desirable range <100 mg/dL for primary prevention; <70 mg/dL for patients with CHD or diabetic patients with > or = 2 CHD risk factors. LDL-C is now calculated using the Ashlie calculation, which is a validated novel method providing better accuracy than the Friedewald equation in the estimation of LDL-C. Jeronimo SS et al. JAYNA. 2013;310(19): 0442-9574 (http://education.hiogi/faq/INN184) Non-HDL Cholesterol 114 <130 mg/dL (calc) [facility] Comment: For patients with diabetes plus 1 major ASCVD risk factor, treating to a non-HDL-C goal of <100 mg/dL (LDL-C of <70 mg/dL) is considered a therapeutic option. Triglycerides 135 <150 mg/dL [facility] 08/26/2021 10:1 4 AM EDT [facility] LAB BLOOD ORDERABLES Final Resul t [facility] [address] from Last 3 Months or Most Recently Relevant to Health Maintenance [place] [address] [address] MEDICARE REPLACEMENT PPO Care Teams Production Line Operator Relationship Specialty Start Date End Date Cintia Ely ANP [address] [place] [id number] PCP - General Family Medicine 04/30/21
--- OUTSIDE RECORDS SUMMARY | 2024-11-13 14:53 | XMS_ITS | Encounter Summary ---
Author Organization [employer] Address [address] [place] [address] Care Team Providers Care Finish Off Operator Name Role Phone Cintia Ely Primary Care Provider Reason for Visit * Reason Comments Med Refill Encounter Details Date Type Department Care Team (Late st Contact Info) Description 06/28/2023 Refill [facility] MEDICINE [address] [place], [place] [phone] Cintia Ely ANP [address] [place] [address] Cerebrovascular accident (CVA), unspecified mechanism (CMS/HCC) Social [...] (CMS/HCC) documented in this encounter Care Teams Finish Off Operator Relationship Specialty Start Date End Date Cintia Ely ANP [address] [place] [address] PCP - General Family Medicine 04/30/21 documented as of this encounter
--- OUTSIDE RECORDS SUMMARY | 2024-11-13 14:53 | XMS_ITS | Encounter Summary ---
Author Organization [employer] Address [address] [facility] 7t [place] [address] Care Team Providers Care Business Law Professor Name Role Phone Cintia Ely Primary Care Provider [phone] Reason for Visit * Reason Onset Date Comments ER Follow-up 01/17/2023 Nurse Triage 01/17/2023 Encounter Details Date Type Department Care Team (Late st Contact Info) Description 01/17/2023 Telephone [facility] MEDICINE [address] [place] [address] Cintia Ely ANP [address] [place] [address] ER Follow-up; Nurse Triage Social History Tobacco Use Types Packs/Day Years Used Date Smoking Tobacco: Never Passive Smoke Exposure: Never Smokeless Tobacco: Never Alcohol Use Standard Drinks/Week Comments Never 0 (1 standard drink = 0.6 oz pur e alcohol) Housing Stability Answer Date Recorded What is your housing situation today? I have lyudmila viky 01/03/[address] you li [...] pt. He said that he went to [facility] ED on 01/13/23 because he was bleeding from his rectum. Provider checked pt. He stated to pt. That pt needed to go to a Hospital in [facility] for colon surgery.Pt. Was then transported to [facility] from 01/14/23 at 1am until 01/15/23 at noon. Provider gave pt. Something to control his bleeding from his rectum and The bleeding stopped. Provider in [facility] stated that pt. Did not need surgery anymore and discharged pt. Home. Pt. Has a scheduled colonoscopy for 02/15/23 at [facility] but wants sooner colonoscopy scheduled to see what is wrong with Colon. [phone]. Pt. Wants all notes in his chart for PCP from [facility] and from [facility]. Pt. Denies any rectal bleeding x 2 days but, does state that his stools are dark. Pt. Denies any stomachpain, cramping or bloating. No fever. States he feels fine. Pt. Wants a call from PCP nurse team when all his Hospital notes get put into his chart at [facility]. Pt. States he does not need a HDF appt. Because he is already being followed up by Gastro in [facility]. I will send this note to clinical healthcare administration intern for green team and also to team nurses for fu with pt. When records get put into pt. Chart. Pt. Wants phone call from nurses when notes from [facility] ED and [facility] get put into pt. Chart. * Telephone Encounter - Izzy Villegas - 01/17/2023 10:47 AM EST Tc from pt calling to report ED visit on 01/13/2023 at [facility]. Seen for rectal bleeding. Patient advised will forward to team nurse for follow up. Symptom: Rectal Symptoms - Not Bleeding Outcome: Schedule an appointment to be seen within 3 days Reason: Caller denied all higher acuity questions Colonoscopy 02/15 The caller accepted this outcome Armenian Speaker documented in this encounter Plan of Treatment Not on file documented as of this encounter Visit Diagnoses Not on filedocumented in this encounter Care Teams Business Law Professor Relationship Specialty Start Date End Date Cintia Ely ANP [address] [place] [address] PCP - General Family Medicine 04/30/21 documented as of this encounter
--- OUTSIDE RECORDS SUMMARY | 2024-11-13 14:53 | XMS_ITS | Encounter Summary ---
Author Organization [employer] [facility] [employer] Address [address] [facility] 7t [place] [address] Care Team Providers Care Mill Manager Name Role Phone Cintia Ely JOSE F Primary Care Provider [phone] Encounter Details Date Type Department Care Team (Late st Contact Info) Description 05/17/2024 Orders Only [facility] MED & PEDS [address] [place], [place] [phone] Provider, MD Leidy Social History Tobacco Use Types Packs/Day Years [...] on file documented as of this encounter Procedures Procedure Name Priority Date/Time Associated Diagnosis Comments HM COLONOSCOPY Routine 02/29/2024 11:51 AM EST documented in this encounter Results * Hm Colonoscopy (02/29/2024 11:51 AM EST) us Historical Provider HEALTH MAINTENANCE Final Result documented in this encounter Visit Diagnoses Not on filedocumented in this encounter Additional Health Concerns Assessment Noted Time PHQ-9 Depression Total Score: 0 07/22/19 24 1:07 PM EDT documented as of this encounter Care Teams Mill Manager Relationship Specialty Start Date End Date Cintia Ely ANP [address] [place] [id number] PCP - General Family Medicine 04/30/21 documented as of this encounter
== END 2024-11-13 14:21 | disposition home or self-care (01) ==
LOC: HO.HGI 13:36
PROVIDERS: PCP Family Medicine; Visit Provider Nurse Practitioner
DX: K92.2 Gastrointestinal hemorrhage, unspecified (principal); Z53.1 Procedure and treatment not carried out because of patient's decision for reasons of belief and group pressure
CPT/HCPCS: 99214

== ENCOUNTER 2024-11-13 13:35 | Outpatient (REF) | payer MEDICARE, SELFPAY ==
[2024-11-13 15:06] LABS: MANUAL DIFF FLAG NO
[2024-11-13 15:44] LABS: Hematocrit 46.2 % (42.0-52.0); Hemoglobin 15.8 g/dl (14.0-18.0); Imm Gran Abs Auto 0.01 X10*3/uL (0.00-0.03); Imm Gran Pct Auto 0.2 % (0.0-0.4); Lymphocytes Absolute Auto 1.9 X10*3/uL (1.2-4.9); Mean Corpuscular HGB Conc 34.2 g/dl (31.0-36.0); Mean Corpuscular Hemoglobin 30.7 pg (27.0-33.0); Mean Corpuscular Volume 89.7 fL (80.0-98.0); NRBC Abs Auto 0.000 X10*3/uL (0.0-0.012); NRBC Pct Auto 0.0 /100WBC (0.0-0.2); Platelet Count 119 X10*3/uL (160-400); Red Blood Count 5.15 X10*6/uL (4.60-5.80); White Blood Count 6.5 X10*3/uL (4.8-10.8)
[2024-11-13 16:14] LABS: Alanine Aminotransferase 49 U/L (0-40); Albumin Level 4.4 g/dL (3.5-5.0); Alkaline Phosphatase 69 U/L (39-117); Anion Gap 13 (12-20); Aspartate Amino Transferase 45 U/L (5-37); Blood Urea Nitrogen 16 mg/dL (9-16); Calcium 9.4 mg/dL (8.4-10.2); Carbon Dioxide 30 mmol/L (22-29); Chloride 106 mmol/L (96-108); Estimated Glomerular Filt Rate > 60; Potassium 4.5 mmol/L (3.3-5.1); Sodium 144 mmol/L (135-145); Total Protein 8.0 g/dL (6.5-8.0)
[2024-11-13 16:40] LABS: PSA,Total (Free>4and<10) 1.46 ng/mL (0.00-4.00)
== END 2024-11-13 13:36 | disposition home or self-care (01) ==
LOC: HO.LAB 13:35
PROVIDERS: Urology; PCP Family Medicine; Visit Provider Nurse Practitioner
DX: Z01.818 Encounter for other preprocedural examination (principal); A04.8 Other specified bacterial intestinal infections; K92.2 Gastrointestinal hemorrhage, unspecified; Z53.1 Procedure and treatment not carried out because of patient's decision for reasons of belief and group pressure; Z12.5 Encounter for screening for malignant neoplasm of prostate; Z12.11 Encounter for screening for malignant neoplasm of colon
CPT/HCPCS: 36415; 80053; 84153; 85025; 99212

== ENCOUNTER 2024-11-20 13:57 | Outpatient (REF) | payer MEDICARE, SELFPAY ==
--- NOTE | ~2024-11-20 | US_ITS ---
CLINICAL HISTORY: N40.0 - Benign prostatic hyperplasia without lower urinary tract symptoms --- Additional Notes or Special Instructions: please measure prostate Exam: Bladder ultrasound Comparison: US/MA - US RENAL BI - 05/01/24 09:39 EST US/MA - US BLADDER - 06/07/22 10:45 EDT Findings: Smoothly distended urinary bladder, no calculus, mass or apparent wall thickening, prevoid volume is 290 mL, incomplete emptying with postvoid residual volume 65 mL, ureteral jets are not visualized. Prostate is not well visualized, the inferior and posterior portion of the prostate is partially obscured by artifact, measures roughly 3.6 x 3.9 x 4.2 cm, 34 mL. Impression: Prominent postvoid bladder residual volume 65 mL. This document has been electronically signed by: Aissatou Ramos MD on 11/21/2024 10:52:36
--- OUTSIDE RECORDS SUMMARY | 2024-11-20 16:36 | XMS_ITS | Encounter Summary ---
Author Organization [employer] Address [address] [facility] [address] [place] [address] Care Team Providers Care Rehab Aid Name Role Phone Cintia Ely Primary Care Provider [phone] Reason for Visit * Reason Comments Med Refill Encounter Details Date Type Department Care Team (Late st Contact Info) Description 11/28/2023 Refill [facility]INE [address] [place], [place] [phone] Cintia Ely ANP [address] [place] [address] Cerebrovascular accident (CVA), unspecified mechanism (CMS/HCC) Social [...] documented as of this encounter Care Teams Rehab Aid Relationship Specialty Start Date End Date Cintia Ely ANP [address] [place] [address] PCP - General Family Medicine 04/30/21 documented as of this encounter
--- OUTSIDE RECORDS SUMMARY | 2024-11-20 16:36 | XMS_ITS | Encounter Summary ---
Author Organization [employer] Address [address] [facility] [address] 7[address] [place] [address] Care Team Providers Care Conservation Officer Name Role Phone Cintia Ely Primary Care Provider [phone] Reason for Visit * Reason Comments Med Refill Encounter Details Date Type Department Care Team (Late st Contact Info) Description 01/03/2023 Refill [facility] MEDICINE [address] [place], [place] [phone] Cintia Ely ANP [address] [place] [address] Cerebrovascular accident (CVA), unspecified mechanism (CMS/HCC) Social [...] (CMS/HCC) documented in this encounter Care Teams Conservation Officer Relationship Specialty Start Date End Date Cintia Ely ANP [address] [place] [address] PCP - General Family Medicine 04/30/21 documented as of this encounter
--- OUTSIDE RECORDS SUMMARY | 2024-11-20 16:36 | XMS_ITS | Encounter Summary ---
Author Organization [employer] Address [address] [facility] [address] 7[address] [place] [address] Care Team Providers Care Modeling Agency Manager Name Role Phone Cintia Ely Primary Care Provider [phone] Reason for Visit * Reason Onset Date Comments chart prep 11/19/2024 Encounter Details Date Type Department Care Team (Late st Contact Info) Description 11/19/2024 Telephone [facility] MEDICINE [address] [place] [address] Cintia Ely ANP [address] [place] [address] chart prep Social History Tobacco Use Types Packs/Day Years [...] encounter Miscellaneous Notes * Telephone Encounter - Olena Fernandez [place] - 11/19/2024 1:15 PM EDT Chart Prep Labs: done Images: done Screenings: Not Applicable Vaccines due: Covid Due, Hep A Due, Hep B Due, RSV in Pharmacy Due, and Shingles in pharmacy Due Referrals: Completed Overdue care gaps: Sbirt, SDOH, PHQ9, GAD7, Disability , and Oral Health documented in this encounter Plan of Treatment Not on file documented as of this encounter Visit Diagnoses Not on filedocumented in this encounter Additional Health Concerns Assessment Noted Time PHQ-9 Depression Total Score: 0 07/22/19 24 1:07 PM EDT documented as of this encounter Care Teams Modeling Agency Manager Relationship Specialty Start Date End Date Cintia Ely ANP [address] [place] [address] PCP - General Family Medicine 04/30/21 documented as of this encounter
--- OUTSIDE RECORDS SUMMARY | 2024-11-20 16:36 | XMS_ITS | Encounter Summary ---
Author Organization [employer] Address [address] [facility] [address] 7[address] [place] [address] Care Team Providers Care Superintendent Greens Name Role Phone Cintia Ely JOSE F Primary Care Provider [phone] Encounter Details Date Type Department Care Team (Late st Contact Info) Description 05/17/2024 Orders Only [facility] MED & PEDS [address] [place], [place] [phone] Provider, MD Leidy Social History Tobacco Use [...] documented as of this encounter Care Teams Superintendent Greens Relationship Specialty Start Date End Date Cintia Ely ANP [address] [place] [address] PCP - General Family Medicine 04/30/21 documented as of this encounter
--- OUTSIDE RECORDS SUMMARY | 2024-11-20 16:36 | XMS_ITS | Encounter Summary ---
Author Organization [employer] Address 75 [facility] 7t [place] [address] Care Team Providers Care Corrosion Technician Name Role Phone Cintia Ely Primary Care Provider [phone] Reason for Visit * Reason Onset Date Comments ER Follow-up 01/17/2023 Nurse Triage 01/17/2023 Encounter Details Date Type Department Care Team (Late st Contact Info) Description 01/17/2023 Telephone [facility] MEDICINE [address] [place] [address] Cintia Ely ANP [address] [place] [address] ER Follow-up; Nurse Triage Social History Tobacco [...] pt. He said that he went to [facility] ED on 01/13/23 because he was bleeding from his rectum. Provider checked pt. He stated to pt. That pt needed to go to a Hospital in [facility] for colon surgery.Pt. Was then transported to [facility] from 01/14/23 at 1am until 01/15/23 at noon. Provider gave pt. Something to control his bleeding from his rectum and The bleeding stopped. Provider in [facility] stated that pt. Did not need surgery anymore and discharged pt. Home. Pt. Has a scheduled colonoscopy for 02/15/23 at [facility] but wants sooner colonoscopy scheduled to see what is wrong with Colon. [phone]. Pt. Wants all notes in his chart for PCP from [facility] and from [facility]. Pt. Denies any rectal bleeding x 2 days but, does state that his stools are dark. Pt. Denies any stomachpain, cramping or bloating. No fever. States he feels fine. Pt. Wants a call from PCP nurse team when all his Hospital notes get put into his chart at [facility]. Pt. States he does not need a HDF appt. Because he is already being followed up by Gastro in [facility]. I will send this note to clinical intensive care unit nurse for green team and also to team nurses for fu with pt. When records get put into pt. Chart. Pt. Wants phone call from nurses when notes from [facility] and [facility] get put into pt. Chart. * Telephone Encounter - Izzy Villegas - 01/17/2023 10:47 AM EST Tc from pt calling to report ED visit on 01/13/2023 at [facility]. Seen for rectal bleeding. Patient advised will forward to team nurse for follow up. Symptom: Rectal Symptoms - Not Bleeding Outcome: Schedule an appointment to be seen within 3 days Reason: Caller denied all higher acuity questions Colonoscopy 02/15 The caller accepted this outcome Lao Speaker documented in this encounter Plan of Treatment Not on file documented as of this encounter Visit Diagnoses Not on filedocumented in this encounter Care Teams Corrosion Technician Relationship Specialty Start Date End Date Cintia Ely ANP [address] [place] [address] PCP - General Family Medicine 04/30/21 documented as of this encounter
--- OUTSIDE RECORDS SUMMARY | 2024-11-20 16:36 | XMS_ITS | Encounter Summary ---
Author Organization [employer] Address [address] [facility] [address] [place] [address] Care Team Providers Care Java Programmer Name Role Phone Cintia Ely Primary Care Provider [phone] Reason for Visit * Reason Comments Med Refill Encounter Details Date Type Department Care Team (Late st Contact Info) Description 06/28/2023 Refill [facility] MEDICINE [address] [place], [place] [phone] Cintia Ely ANP [address] [place] [address] Cerebrovascular accident (CVA), unspecified mechanism (CMS/HCC) Social [...] (CMS/HCC) documented in this encounter Care Teams Java Programmer Relationship Specialty Start Date End Date Cintia Ely ANP [address] [place] [address] PCP - General Family Medicine 04/30/21 documented as of this encounter
--- OUTSIDE RECORDS SUMMARY | 2024-11-20 16:36 | XMS_ITS | Patient Health Record ---
Author Organization [facility] Address [address] [place] [id number] Care Team Providers Care Horticultural Therapist Name Role Phone LURDES CRAWFORD N.P. Primary Care Provider Curtis Gomes [phone] Reason For Referral No Information Plan Of Treatment No Information Insurance Providers Payer Name Payer Address Payer Phone Subscriber Number Group Number Insured Name Patient Relationship to Insured Coverage Start Date Coverage End Date [facility] [address] [address] [place] [id number] DIOGENES PRADHAN Self - patient is the insured
--- OUTSIDE RECORDS SUMMARY | 2024-11-20 16:36 | XMS_ITS | Clinical Summary ---
Author Organization [employer] Address [address] [facility] 7t [place] [address] Care Team Providers Care Turn Laster Name Role Phone Cintia Ely JOSE F Primary Care Provider [phone] Allergies No known active allergies Medications omega-3 [...] Encounters Date Type Department Care Team Description 11/19/2024 Telephone [facility] MEDICINE [address] [place] [address] Cintia Ely ANP chart prep 11/14/2024 Results Follow-Up [facility] [address] [facility] [place] [address] Cintia Ely ANP CBC auto differential, Comprehensive Metabolic Panel, PSA, Total With Reflex to PSA, Free 11/13/2024 Orders Only GENERIC EXTERNAL DATA DEPARTMENT Provider, Generic External Data 08/23/2024 Refill [facility] MEDICINE [address] [facility] [address] Cintia Ely ANP Cerebrovascular accident (CVA), unspecified mechanism (CMS/HCC) from Last 3 Months Immunizations Immunization Administration Dates Next Due Influenza High-dose Quadriva lent Preservative Free 12/07/2022,12/02/2021,11/13/2019 Influenza Quadrivalent Adjuvanted 11/27/2020 Influenza injectable quadriv alent preservative free 12/11/2021,12/24/2015 Influenza, High Dose Seasona l, Preservative Free 11/15/2024,02/07/2024,12/22/2017,2017 Influenza, IIV3, injectable 12/24/2016 Influenza, trivalent, adjuvanted [...] 07/21/2024 07/22/2023 COVID-19 Vaccine ( season) 2024 06/14/2020, 06/01/2020, 05/24/2020 Colonoscopy 02/28/2025 02/29/2024 Colorectal Cancer Screening 02/28/2025 Lipid Panel 08/26/2026 08/26/2021 DTaP/Tdap/Td Vaccines (3 - Td or Tdap) 07/01/2032 07/01/2022, 02/18/2010 Pneumococcal Vaccine: 50+ Years Completed 07/01/2022 Influenza Vaccine Completed 11/15/2024, , 12/07/2022, Additional history exists HIB Vaccines Aged Out [...] Procedure Name Priority Date/Time Associated Diagnosis Comments PSA, TOTAL WITH REFLEX TO PSA, FREE Routine 11/13/2024 3:04 PM EDT COMPREHENSIVE METABOLIC PANEL Routine 11/13/2024 3:04 PM EDT CBC WITH AUTO DIFFERENTIAL Routine 11/13/2024 3:04 PM EDT COLONOSCOPY Routine 02/29/2024 11:51 AM EST LIPID PANEL, STANDARD Routine 08/26/2021 10:14 AM EDT from Last 3 Months or Most Recently Relevant to Health Maintenance Results * PSA, Total With Reflex to PSA, Free (11/13/2024 3:04 PM EDT) PSA,Total (Free>4and<10) 1.46 0.00 - 4.00 ng/mL [facility] Comment:A Free PSA was not p erformed: The percentage of Free PSA can be used to enhance the differentiation of prostate cancer from benign prostatic disease in subjects whose PSA levels are between 4.0 and 10.0 ng/mL. For subjects whose PSA levels are below 4.0 or above 10.0 ng/mL, the risk of prostate cancer is determined on the basis of the PSA alone. Therefore the % Free PSA is recommended only for those subjects whose PSA levels are between 4.0 and 10.0 ng/mL.PSA methodology: Brambila Alinity i ChemiluminescentMicroparticle Immunoassay (CMIA) 11/13/2024 3:04 PM EDT 11/13/2024 3:04 PM EDT us Generic External Data Provider LAB BLOOD ORDERAB LES Final Result [facility] [address] [place] [phone] * (ABNORMAL) CBC auto differential (11/13/2024 3:04 PM EDT) White Blood Count 6.5 4.8 - 10.8 X10*3/uL [facility] Red Blood Count 5.15 4.60 - 5.80 X10*6/uL [facility] Hemoglobin 15.8 14.0 - 18.0 g/dl [facility] Hematocrit 46.2 42.0 - 52.0 % [facility] Mean Corpuscular Volume 89.7 80.0 - 98.0 fL [facility] Mean Corpuscular Hemoglobin 30.7 27.0 - 33.0 pg [facility] Mean Corpuscular HGB Conc 34.2 31.0 - 36.0 g/dl [facility] Red Cell Distribution Width 12.2 11.0 - 16.0 % [facility] Platelet Count 119(L) 160 - 400 X10*3/uL [facility] Mean Platelet Volume 10.8 9.4 - 12.4 fL [facility] Neutrophils Percent Auto 59.7 45 - 73 % [facility] Imm Gran Pct Auto 0.2 0.0 - 0.4 % [facility] Lymphocytes Percent Auto 29.7 20 - 40 % [facility] Monocytes Percent Auto 7.6 2 - 11 % [facility] Eosinophils Percent Auto 2.5 0 - 4 % [facility] Basophils Percent Auto 0.3 0 - 2 % [facility] NRBC Pct Auto 0.0 0.0 - 0.2 /100WBC [facility] Neutrophils Absolute Auto 3.9 2.0 - 8.3 x10*3/uL [facility] Imm Gran Abs Auto 0.01 0.00 - 0.03 X10*3/uL [facility] Lymphocytes Absolute Auto 1.9 1.2 - 4.9 X10*3/uL [facility] Monocytes Absolute Auto 0.5 0.1 - 1.2 X10*3/uL [facility] Eosinophils Absolute Auto 0.2 0.0 - 0.4 X10*3/uL [facility] Basophils Absolute Auto 0.0 0.0 - 0.2 X10*3/uL [facility] NRBC Abs Auto 0.000 0.0 - 0.012 X10*3/uL [facility] 11/13/2024 3:04 PM EDT 11/13/2024 3:04 PM EDT us Generic External Data Provider LAB BLOOD ORDERAB LES Final Result [facility] [address] [place] [phone] * (ABNORMAL) Comprehensive Metabolic Panel (11/13/2024 3:04 PM EDT) Sodium 144 135 - 145 mmol/L [facility] Potassium 4.5 3.3 - 5.1 mmol/L [facility] Chloride 106 96 - 108 mmol/L [facility] Carbon Dioxide 30(H) 22 - 29 mmol/L [facility] Anion Gap 13 12 - 20 [facility] Urea Nitrogen (BUN) 16 9 - 16 mg/dL [facility] Creatinine, Serum 0.75 0.5 - 1.4 mg/dL [facility] Estimated Glomerular Filt Rate >60 [facility] Comment:Chronic Kidney Disea se: Estimated GFR < 60 mL/min/[id number] Kidney Disease: Estimated GFR < 15 mL/min/1.73m2 Glucose 103 60 - 115 mg/dL [facility] Calcium 9.4 8.4 - 10.2 mg/dL [facility] Bilirubin, Total 0.5 0.0 - 1.0 mg/dL [facility] Aspartate Amino Transferase 45(H) 5 - 37 U/L [facility] Alanine Aminotransferase 49(H) 0 - 40 U/L [facility] Total Protein 8.0 6.5 - 8.0 g/dL [facility] Albumin Level 4.4 3.5 - 5.0 g/dL [facility] Alkaline Phosphatase 69 39 - 117 U/L [facility] 11/13/2024 3:04 PM EDT 11/13/2024 3:04 PM EDT us Generic External Data Provider LAB BLOOD ORDERAB LES Final Result [facility] [address] [place] [phone] [phone] * Hm Colonoscopy (02/29/2024 11:51 AM EST) Historical Provider HEALTH MAINTENANCE Final Result * [...] factors. LDL-C is now calculated using the Jeronimo-Keena calculation, which is a validated novel method providing better accuracy than the Friedewald equation in the estimation of LDL-C. Jeronimo SANDHU et al. JAYNA. 2013;310(19): 9854-8418 (http://education.Bulu Box.EagerPanda/faq/PBI466) Non-HDL Cholesterol 114 <130 mg/dL (calc) [facility] Comment: For patients with diabetes plus 1 major ASCVD risk factor, treating to a non-HDL-C goal of <100 mg/dL (LDL-C of <70 mg/dL) is considered a therapeutic option. Triglycerides 135 <150 mg/dL [facility] 08/26/2021 10:1 4 AM EDT [facility] LAB BLOOD ORDERABLES Final Resul t [facility] [address] from Last 3 Months or Most Recently Relevant to Health Maintenance Insurance [employer] [place] [employer] REPLACEMENT PPO Care Teams Turn Laster Relationship Specialty Start Date End Date Cintia Ely ANP [address] [place] [phone] PCP - General Family Medicine 04/30/21
--- OUTSIDE RECORDS SUMMARY | 2024-11-20 16:36 | XMS_ITS | Encounter Summary ---
Author Organization [employer] Address [address] [facility] [address] [place] [address] Care Team Providers Care Building Construction Supervisor Name Role Phone Cintia Ely Primary Care Provider [phone] Reason for Visit * Reason Onset Date Comments Results 11/14/2024 Encounter Details Date Type Department Care Team (Latest Contact Info) Description 11/14/2024 Results Follow-Up [facility] MEDICINE [address] [place] [address] Cintia Ely ANP [address] [place] [address] CBC auto differential, Comprehensive Metabolic Panel, PSA, Total With Reflex to PSA, Free Social History Tobacco Use Types Packs/Day Years [...] encounter Miscellaneous Notes * Telephone Encounter - Kamini Causey RN - 11/15/2024 9:48 AM EDT TC placed to the pt with [facility] piano mechanic #[id number] to inform of the pt lab results below. Pt advised that the labs were ordered by an outside provider most likely GI. The pt was told that LFT's were elevated and that the pt should focus on lifestyle changes including diet, increased exercise and beingmindful of alcohol consumption. The pt was also agreeable to scheduling a f/u with PCP on 11/20/2024 with PCP for a blood pressure review per request of Cintia. ----- Message from Cintia Ely sent at 11/14/2024 12:02 PM EDT ----- It looks like these labs were ordered by GI possibly. Please schedule patient for blood pressure follow-up and we can discuss results at that time as well. His liver function tests were mildly elevated, recommend increased fiber intake, increased exercise. I do not think he drinks alcohol but would decrease if he does. ----- Message ----- From: Maureen Ortega MD Sent: 11/14/2024 8:46 AM EDT To: JOSE F Cook ----- Message ----- From: Interface, Lab Results In Sent: 11/13/2024 3:45 PM EDT To: Maureen Ortega MD * Telephone Encounter - Sonny Martinez - 11/14/2024 4:36 PM EDT Tc from pt returning call back regarding prior message. Contact pt at [phone] * Telephone Encounter - Kamini Causey RN - 11/14/2024 2:52 PM EDT TC placed to the pt and LVM to call back the office in regards to result message below ----- Message from Cintia Ely sent at 11/14/2024 12:02 PM EDT ----- It looks like these labs were ordered by GI possibly. Please schedule patient for blood pressure follow-up and we can discuss results at that time as well. His liver function tests were mildly elevated, recommend increased fiber intake, increased exercise. I do not think he drinks alcohol but would decrease if he does. ----- Message ----- From: Maureen Ortega MD Sent: 11/14/2024 8:46 AM EDT To: JOSE F Cook ----- Message ----- From: Interface, Lab Results In Sent: 11/13/2024 3:45 PM EDT To: Maureen Ortega MD * Result Encounter Note - JOSE F Cook - 11/14/2024 12:02 PM EDT It looks like these labs were ordered by GI possibly. Please schedule patient for blood pressure follow-up and we can discuss results at that time as well. His liver function tests were mildly elevated, recommend increased fiber intake, increased exercise. I do not think he drinks alcohol but woulddecrease if he does. documented in this encounter Plan of Treatment Not on file documented as of this encounter Visit Diagnoses Not on filedocumented in this encounter Additional Health Concerns Assessment Noted Time PHQ-9 Depression Total Score: 0 07/22/19 24 1:07 PM EDT documented as of this encounter Care Teams Building Construction Supervisor Relationship Specialty Start Date End Date Cintia Ely ANP [address] [place] [id number] PCP - General Family Medicine 04/30/21 documented as of this encounter
--- OUTSIDE RECORDS SUMMARY | 2024-11-20 16:36 | XMS_ITS | Encounter Summary ---
Author Organization [employer] Address [address] [facility] [address] [place] [address] Care Team Providers Care Audiometrist Name Role Phone Cintia Ely Primary Care Provider [phone] Encounter Details Date Type Department Care Team (Late st Contact Info) Description 02/26/2022 Orders Only [facility] [address] [place] [address] Radha Patton, RN Social History Tobacco Use [...] on filedocumented in this encounter Care Teams Audiometrist Relationship Specialty Start Date End Date Cintia Ely ANP [address] [place] [address] PCP - General Family Medicine 04/30/21 documented as of this encounter
== END 2024-11-20 13:58 | disposition home or self-care (01) ==
LOC: HO.US 13:57
PROVIDERS: PCP Family Medicine; Visit Provider Urology
DX: N40.0 Benign prostatic hyperplasia without lower urinary tract symptoms (principal); R35.0 Frequency of micturition
CPT/HCPCS: 76857

== ENCOUNTER → 2024-11-20 13:59 | Outpatient (BNV) | payer MEDICARE, SELFPAY | PROVIDERS: PCP Family Medicine; Visit Provider Radiology Diagnostic Radiology | DX: N40.0 Benign prostatic hyperplasia without lower urinary tract symptoms (principal) | CPT/HCPCS: 76857 ==

== ENCOUNTER 2025-01-14 12:38 | Outpatient (AMB) | payer MEDICARE, SELFPAY ==
--- NOTE | 2025-01-14 13:17 | MHC.OFFVIS ---
Intake Visit Reasons: Cysto/ US Intake Note: Patient presents today for a follow up/US 11/21 Bladder US Urology Meds- Alfuzosin, Finasteride, Gemtesa Allergies to Antibiotic- No Known Allergies Blood Thinner- Aspirin Diesel Stationary Engineer Required: Yes Diesel Stationary Engineer Language: Electrician Supervisor Substation Services: Diesel Stationary Engineer Present Diesel Stationary Engineer Name: Fan [id number] Information Interpreted: non-clinical & clinical Accompanied by: Self / Same As Patient Allergies No Known Allergies Allergy (Verified 01/14/25 13:18) Medication List - Last Reconciled 01/14/25 by Thad Scott MD alfuzosin ER 10 mg PO QAM aspirin 81 mg PO DAILY bisacodyl (Dulcolax (bisacodyl)) 10 mg (2 x 5 mg) PO BEDTIME 2 days finasteride (Proscar) 5 mg PO DAILY magnesium hydroxide (Milk of Magnesia) 5 mL PO BEDTIME PRN peg 3350-electrolytes 236-22.74-6.74 -5.86 gram (Golytely) 240 mL PO Q10M 1 day [Prostate Vitamins PO] rosuvastatin 20 mg PO DAILY vibegron (Gemtesa) 75 mg PO DAILY HPI Comments Details: 01/14/2025 Don is a 74-year-old male who has lower urinary tract symptoms of urgency frequency. He is on medication for BPH and overactive bladder. He is prescribed Proscar Gemtesa and alfuzosin. He also has history of small bilateral kidney stones. History of Present Illness The patient is a 74-year-old male presenting with lower urinary tract symptoms of urgency and frequency. He has been experiencing these symptoms in association with Benign Prostatic Hyperplasia (BPH) and overactive bladder. He is currently on medication including Proscar, Gemtesa, and Alfuzosin to manage these conditions.Additionally, the patient has a history of small bilateral kidney stones, which were confirmed by an ultrasound showing tiny kidney stones. Results - Ultrasound: 11/21/24--Bladder and prostate normal; Will hold on office cystoscopy at this time. - PSA: 1.46 ng/mL, within normal range - Kidney function tests: Normal, 11/13/24-BUN/Creat: 16/0.75 Plan 1. Benign Prostatic Hyperplasia (Bph) - Continue current medications: Proscar, Gemtesa, and Alfuzosin. - Follow-up in nine months to assess symptom progression and medication efficacy. 2. Overactive Bladder - Continue current medications: Proscar, Gemtesa, and Alfuzosin. - Follow-up in nine months to assess symptom progression and medication efficacy. 3. Bilateral Kidney Stones - Monitor kidney stones with periodic imaging as needed. - Ensure adequate hydration to prevent stone growth. 08/20/24-- - The patient is a 74-year-old male presenting with management of nephrolithiasis and Benign Prostatic Hyperplasia (BPH) with lower urinary tract symptoms. - Renal ultrasound from May 02, 2024, showed small bilateral kidney stones with no increase in size. - Increased fluid intake and dietary modifications, including reducing high oxalate foods and adding lemon, were suggested. - Currently on alfuzosin 10 mg for BPH, taken in the afternoon, with noted insufficient control of symptoms. Urinary Symptoms Review - Urinary frequency: requires urination every 2-3 hours. - Alfuzosin 10 mg taken in the afternoon. Results - Renal ultrasound (May 02, 2024): Identified small bilateral kidney stones with no increase in size. Plan - Encourage fluid intake and dietary modification to manage nephrolithiasis. - Prescribe Gemtesa for urinary frequency. - Prescribe finasteride for prostate size reduction with a reevaluation in four months. - Plan for cystoscopy and bladder ultrasound at the next visit. 08/24/23--Discussed 24 hour urine results: Total volume 560 mL, Calcium 78 mg; Oxalate 27 mg, Sodium 54, Citrate 550 mg. Instructed on importance of fluid intake, the patient states his bladder symptoms are improved with the combination Toviaz and alfuzosin. Will continue to monitor kidney stones. He has scheduled follow-up for 05/31/2024 with renal ultrasound, KUB and PSA prior. 05/20/23---Don is a 73-year-old male who is here for follow-up for OAB symptoms, BPH and nephrolithiasis. He is prescribed Toviaz and alfuzosin 10 mg. He has last seen on 02/25/23, I discussed metabolic workup for kidney stones he did not have the 24 hour urine done, blood work for serum calcium and parathyroid hormone levels which viewed with him. Calcium and parathyroid hormone levels obtained though 03/03/2023---9.7 and 55.1 respectively PSA-08/19/2022--1.26 ng/mL Evaluation: Urinalysis -leukocytes negative, blood negative Bladder scan PVR 24 mL. Plan--continue Toviaz, alfuzosin, follow-up in 1 year KUB and PSA prior. 02/25/23--Don is a 72-year-old male who is here for follow-up for OAB symptoms and BPH. Co-morbidity- history of stroke. Here in follow up, had some imaging done that I reviewed, CT angiogram. He is prescribed Toviaz 5 mg and Alfuzosin 10 mg. He states he is voiding without difficulty. nocturia episodes 2-3 times per night. I have reviewed CAT scan results with the patient- 01/14/23-KIDNEYS AND URETERS: The kidneys are normal in size, and attenuation. There are scattered bilateral renal calculi measuring up to 3 mm lower pole right kidney. There is no hydronephrosis. Multiple bilateral renal cysts are noted measuring up to 6.3 cm upper pole left kidney. Plan discussed--Continue taking Toviaz 5 mg and Alfuzosin 10 mg. Metabolic workup, 24 hr urine, serum Ca, PTH Testing: Renal US results reviewed?03/31/2022-- Suggestive of a small stone of the lower pole of the left kidney. Benign, Bosniak category 1 and category 2 cysts of the kidneys. Mild prostatomegaly. Postvoid bladder residual of 25 mL. Bladder US results reviewed?06/07/22-- Suggestive of nqkkw-lo-xsxlzjno postvoid residual bladder volume and moderate prostate enlargement. Labs reviewed--PSA--06/22/2021--1.91. [facility] Medical History Screening PSA (prostate specific antigen) Pre-op examination History of CVA (cerebrovascular accident) without residual deficits Colon cancer screening Renal cysts, acquired, bilateral History of stroke Bilateral inguinal hernia Rectal bleed CVA (cerebral vascular accident) Bilateral carotid artery stenosis OAB (overactive bladder) BPH (benign prostatic hyperplasia) Elevated cholesterol Retinal artery branch occlusion of right eye Surgical History History of esophagogastroduodenoscopy (EGD) H/O colonoscopy Social History Household Members: None Housing: Apartment Do you presently have visiting nurse or other home services: No Alcohol intake: current Alcohol intake frequency: former alcohol drinker Alcohol type: wine Patient Tobacco Use Status: Never used Tobacco service: No Current occupational status: retired Review of Systems Const All systems reviewed & are unremarkable except as noted in HPI and below Reports no additional complaints Eyes Reports no additional complaints ENT Reports no additional complaints Card Reports no additional complaints Resp Reports no additional complaints GI Reports no additional complaints Reports as per HPI Musc Reports no additional complaints Skin/Breast Reports system reviewed and no additional complaints, except as documented Neuro Reports no additional complaints Psych Reports no additional complaints Endo Reports no additional complaints David/Lymph Reports no additional complaints Aller/Immun Reports no additional complaints Results Reviewed Results Reviewed: Date of Service: 11/20/24 CLINICAL HISTORY: N40.0 - Benign prostatic hyperplasia without lower urinary tract symptoms --- Additional Notes or Special Instructions: please measure prostate Exam: Bladder ultrasound Comparison: US/RI - US RENAL BI - 05/01/24 09:39 EST US/RI - US BLADDER - 06/07/22 10:45 EDT Findings: Smoothly distended urinary bladder, no calculus, mass or apparent wall thickening, prevoid volume is 290 mL, incomplete emptying with postvoid residual volume 65 mL, ureteral jets are not visualized. Prostate is not well visualized, the inferior and posterior portion of the prostate is partially obscured by artifact, measures roughly 3.6 x 3.9 x 4.2 cm, 34 mL. Impression: Prominent postvoid bladder residual volume 65 mL. Date of Service: 05/01/24 CLINICAL HISTORY: N20.0 - Calculus of kidney US Renal Comparison: None Findings: Right kidney normal size and echotexture,12.2 cm length. Multiple right renal cysts, largest of which is in the superior pole measuring 74 mm. 2 nonobstructing right renal calculi, largest of which is in the interpolar kidney measuring 3 mm. Left kidney normal size and echotexture, 11.7 cm length. Multiple cysts, largest of which is in the interpolar kidney with septations measuring 53 mm. Multiple calculi, largest of which is in the superior pole measuring 3 mm. No hydronephrosis of either kidney. Normal color Doppler IMPRESSION: 1. Nonobstructing bilateral renal calculi. 2. Bilateral renal cysts. Date of Service: 01/14/23 EXAMINATION: CT ANGIOGRAM ABDOMEN AND PELVIS CLINICAL INFORMATION: GI bleed. COMPARISON: None available. TECHNIQUE: Multidetector volumetric imaging was performed from the lower chest through the abdomen to the pubic symphysis following the administration of 80 mL Omnipaque 350 intravenous contrast. No contrast reaction reported Sagittal, coronal, and MIP oblique sagittal reformatted images were obtained on the CT workstation, uploaded to PACS, and reviewed. This CT examination was performed using dose optimization techniques as appropriate, variously including the following: *Automated exposure control *Adjustment of mA and/or kV according to patient size (this includes techniques or standardized protocols for targeted exams where dose is matched to indication/reason for exam; i.e. extremities or head) *Use of iterative reconstruction technique DLP: 1699 mGy-cm FINDINGS: LUNG BASES: There is minimal scarring at the right lung base. LIVER, GALLBLADDER, AND BILIARY TREE: The liver is slightly irregular in contour. No focal hepatic lesion or biliary ductal dilatation is present. The gallbladder is unremarkable with no evidence of radiopaque gallstones, gallbladder wall thickening, or obvious pericholecystic inflammatory changes. PANCREAS: Unremarkable. SPLEEN: Unremarkable. ADRENAL GLANDS: Unremarkable. KIDNEYS AND URETERS: The kidneys are normal in size, and attenuation. There are scattered bilateral renal calculi measuring up to 3 mm lower pole right kidney. There is no hydronephrosis. Multiple bilateral renal cysts are noted measuring up to 6.3 cm upper pole left kidney. BLADDER: Unremarkable. GASTROINTESTINAL TRACT: There are diverticula of the transverse, descending and the sigmoid colon. There is mild infiltrative change along a proximal descending colonic diverticula. There is contrast extravasation lower descending colon with contrast accumulation on delayed imaging. The appendix is visualized and is within normal limits. ABDOMINAL WALL: There is a small umbilical hernia containing fat. LYMPH NODES: Normal. VASCULAR: There is atherosclerotic plaque of the abdominal aorta with an infrarenal bulge measuring up to 2.4 cm. 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 PELVIC VISCERA: There is prostate gland hypertrophy. OSSEOUS STRUCTURES: There is diffuse almj-fe-xjhfnhkn thoracolumbar disc degenerative change. There is a likely chronic compression fracture of T12. IMPRESSION: Diverticula of the transverse, descending and sigmoid colon. Contrast extravasation and accumulation lower descending colon consistent with active GI bleeding likely related to diverticular disease. There is mild infiltrative change along a single diverticula of the proximal descending colon possibly early diverticulitis. Nonobstructing renal calculi. Irregular liver contour possibly hepatocellular disease/early cirrhosis. 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 Prostate gland hypertrophy. Assessment & Plan Assessment & Plan (1) Screening PSA (prostate specific antigen): Code(s): Z12.5 - Encounter for screening for malignant neoplasm of prostate Category: Medical (2) Bilateral kidney stones: Code(s): N20.0 - Calculus of kidney Category: Medical Plan Plan 1. Benign Prostatic Hyperplasia (Bph) - Continue current medications: Proscar, Gemtesa, and Alfuzosin. - Follow-up in nine months to assess symptom progression and medication efficacy. 2. Overactive Bladder - Continue current medications: Proscar, Gemtesa, and Alfuzosin. - Follow-up in nine months to assess symptom progression and medication efficacy. 3. Bilateral Kidney Stones - Monitor kidney stones with periodic imaging as needed. renal US in 9 months - Ensure adequate hydration to prevent stone growth. Orders: Orders PSA,Total (Free>4and<10) 9 Months Z12.5 - Encounter for screening for malignant neoplasm of prostate US renal BI 9 Months N20.0 - Calculus of kidney Medications: Refilled finasteride (Proscar) 5 mg PO DAILY 90 tabs 3RF vibegron (Gemtesa) 75 mg PO DAILY 90 tabs 3RF alfuzosin ER 10 mg PO QAM 90 tabs 3RF Patient Instructions: The patient had an opportunity to ask questions regarding treatment plan. The patient expressed understanding and agreement with the above treatment plan. The patient is aware they should contact our office by phone for worsening of their current condition or the appearance of new symptoms. Compliance is encouraged with any medications and followup testing that is ordered. It is a privilege to be allowed the opportunity to participate in the urologic care of your patient. If you have any questions or concerns regarding treatment for the above conditions please do not hesitate to contact me. The office telephone contact is [phone]. This note is constructed in part using voice recognition software. While every effort has been made to ensure accuracy police commissioner errors may have been included. Yours sincerely, Thad Scott MD Scribe Plan - Not visible on output: Patient was informed and verbally consented to the use of an ambient scribe for clinic note documentation during this visit. Coding Level of Care Code Est Pt Level 4 (78481) Diagnoses Screening PSA (prostate specific antigen) Z12.5 Bilateral kidney stones N20.0
--- OUTSIDE RECORDS SUMMARY | 2025-01-14 16:00 | XMS_ITS | Encounter Summary ---
Author Organization [employer] Address [address] [facility] [address] [place] [address] Care Team Providers Care Applied Mathematician Name Role Phone Cintia Ely Primary Care Provider [phone] Reason for Visit * Reason Comments Med Refill Encounter Details Date Type Department Care Team (Late st Contact Info) Description 01/03/2023 Refill [facility] MEDICINE [address] [place] [address] Cintia Ely ANP [address] [place] [address] Cerebrovascular accident (CVA), unspecified mechanism (CMS/HCC) Social [...] Diagnosis Cerebrovascular accident (CVA), unspecified mechanism (CMS/HCC) (HCC) documented in this encounter Care Teams Applied Mathematician Relationship Specialty Start Date End Date Cintia Ely ANP [address] [place] [id number] PCP - General Family Medicine 04/30/21 documented as of this encounter
--- OUTSIDE RECORDS SUMMARY | 2025-01-14 16:00 | XMS_ITS | Clinical Summary ---
Author Organization [facility] Address [address] [place] [address] Care Team Providers Care Manager Hvac Name Role Phone Unavailable Primary Care Provider [...] Years Used Date Smoking Tobacco: Never Assessed [facility] Utilities Answer Date Recorded In the past 12 months has [employer], gas, oil, or water company threatened to [...] place to sleep or slept in a nursing home (including now)? No 01/14/2023 Sex and Gender [...] Vaccine (1 of 2) 2000 Influenza Vaccine 10/12/2024 12/11/2021, , 11/27/2020, Additional history exists COVID-19 Vaccine (2 - 2024- season) 2024 06/01/2020 RSV Vaccine 50 years and older and Patients (1 - 1-dose 75+ series) 2026 Hepatitis B Vaccines Aged Out No long er eligible based on patient's age to complete this topic Insurance BLUE CROSS [employer] MEDICARE OUT OF NETWORK Advance Directives * Full Code (Latest Code Status on File) Date Activated Date Inactivated Comments 01/14/2023 1:51 PM
--- OUTSIDE RECORDS SUMMARY | 2025-01-14 16:00 | XMS_ITS | Patient Health Record ---
Author Organization [facility] Address [address] [place] [id number] Care Team Providers Care Daily Sales Audit Clerk Name Role Phone LURDES CRAWFORD N.P. Primary Care Provider Curtis Gomes [phone] Reason For Referral No Information Plan Of Treatment No Information Insurance Providers Payer Name Payer Address Payer Phone Subscriber Number Group Number Insured Name Patient Relationship to Insured Coverage Start Date Coverage End Date [facility] [address] [address] [place] [address] [id number] DIOGENES PRADHAN Self - patient is the insured
--- OUTSIDE RECORDS SUMMARY | 2025-01-14 16:00 | XMS_ITS | Clinical Summary ---
Author Organization [employer] Address [address] [facility] 7t [place] [address] Care Team Providers Care Master Esthetician Name Role Phone Cintia Ely Primary Care Provider Allergies No known active allergies Medications omega-3 (Fish Oil) 1000 MG capsule PT REPORTS PURCHASING OTC Active solifenacin (VESIcare) 10 MG tablet Take 1 tablet by mouth at bed time. Active rosuvastatin (Crestor) 20 MG tablet TAKE 1 TABLET BY MOUTH EVERY DAY 90 tablet 1 5 Active aspirin (Aspirin Low Dose) 81 MG EC tabletIndication s:Cerebrovascula r accident (CVA), unspecified mechanism (CMS/HCC) (HCC) TOME 1 TABLETA POR VIA ORAL TODOS [...] NA Colon ca screening (45+): Established w/ [facility] GI, normal 2007 DEXA (F 65+, M 70+; with risk factors, earlier): Cont to consider AAA screening: non-smoker Bilateral carotid artery stenosis 09/01/2021 Cerebrovascular accident (CMS/HCC) 06/05/2021 Hyperlipidemia 06/05/2021 Encounters Date Type Department Care Team Description 01/04/2025 2:00 PM EDT Clinical Support [facility] [place] [address] Anna Quiroga, RN Healthcare maintenance 01/04/2025 Telephone [facility] [place] [address] Cintia Ely ANP March Recall 01/04/2025 Travel 12/14/2024 10:15 AM EDT Office Visit [facility] [place] [address] Cintia Ely ANP Mixed hyperlipidemia (Primary Dx); Bilateral carotid artery stenosis; Healthcare maintenance; 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; Essential hypertension; Chronic hepatitis C without hepatic coma (HCC); Varicose veins of both lower extremities with pain; Transaminitis 12/14/2024 Travel 12/13/2024 Telephone [facility] [place] [address] Cintia Ely ANP chart prep 11/19/2024 Telephone [facility] [place] [address] Cintia Ely ANP chart prep 11/14/2024 Results Follow-Up [facility] [place] [address] Cintia Ely ANP CBC auto differential, Comprehensive Metabolic Panel, PSA, Total With Reflex to PSA, Free 11/13/2024 Orders Only GENERIC EXTERNAL DATA DEPARTMENT Provider, Generic External Data from Last 3 Months Immunizations Immunization Administration [...] drink = 0.6 oz pur e alcohol) Alcohol Answer Date Recorded How often do you have a drink containing alcohol ? 0 12/14/2024 How many drinks containing a lcohol do you have on a typical day when you are drinking? 0 12/14/2024 Frequency of Binge Drinking Not on file 05/2024 Depression Answer Date Recorded Patient Health Questionnaire-9 Score 7 12/14/2024 Patient Health Questionnaire-9 Score 7 12/14/2024 Last PHQ-9: Questionnaire Data Not on file 1 Housing Stability Answer Date Recorded What is your housing situation today? I have lyudmila salmon 12/14/[address] you li ve. Do you have problems with any of the following? None of the above 12/14/2024 Food Insecurity Answer Date Recorded Within the past 12 months, y ou worried that your food would run out before you got money to buy more: Never True 12/14/2024 Within the past 12 months,th e food you bought just didn't last and you didn't have enough money to get more: Never True 05/2024 Transportation Answer Date Recorded In the past 12 months, has l ack of transportation kept you from medical appts, meetings, work or from getting things needed for daily living? No 12/14/2024 Utilities Answer Date Recorded In the past 12 months, has t he electric, gas, oil or water company threatened to shut off services in your home? No 12/14/2024 Depression Answer Date Recorded Patient Health Questionnaire-2 Score 1 12/14/2024 Internet Access Answer Date Recorded Internet Access Q1 No 12/14/2024 Internet Access Q2 I do not want or need it 05/2024 Sex and Gender Information Value Date Recorded Sex Assigned at Male 01/11/2022 10:39 AM EDT Legal Sex Male 10:39 AM EDT Gender Identity Male 01/11/2022 10:39 AM EDT Sexual Orientation Straight 01/11/2022 10 :39 AM EDT Last Filed Vital Signs Vital Sign Reading Time Taken Comments Blood Pressure 132/84 01/04/2025 1:36 PM EDT Pulse 96 01/04/2025 1:36 PM EDT Temperature 36.1 C (96.9 F) 12/14/2024 10:33 AM EDT Respiratory Rate 18 01/04/2025 1:36 PM EDT Oxygen Saturation 97% 01/04/2025 1:36 PM EDT room air Inhaled Oxygen Concentration - - Weight 88.1 kg (194 lb 4 oz) 12/14/2024 10:33 AM EDT Height 172.7 cm (5' 8 ) 12/14/2024 10:33 AM EDT Body Mass Index 29.54 12/14/2024 10:33 AM EDT Plan of Treatment Health Maintenance Due Date Last Done Comments CT Colonography 1950 FIT DNA/Cologuard 1950 FIT 1950 FOBT 1950 Sigmoidoscopy 1950 Hepatitis A Vaccines (1 of 2 - Risk 2-dose series) 1970 Hepatitis B Vaccines (1 of 3 - Risk 3-dose series) 2011 RSV Patients and Patients Aged 60 years or older (1 - Risk 60-74 years 1-dose series) 2011 Zoster Vaccines (2 of 2) 11/05/2022 09/10/2022 COVID-19 Vaccine ( season) 2024 02/07/2024, 12/23/2020, 06/14/2020, Additional history exists Colonoscopy 02/28/2025 02/29/2024 Colorectal Cancer Screening 02/28/2025 Alcohol/Substance Use Screening 12/14/2025 12/14/2024 Depression Screening 12/14/2025 12/14/2024, 12/15/19 SDOH Screening 12/14/2025 12/14/2024 Tobacco Screening 12/14/2025 12/14/2024 Lipid Panel 08/26/2026 08/26/2021 DTaP/Tdap/Td Vaccines (3 [...] Procedure Name Priority Date/Time Associated Diagnosis Comments US BLADDER Routine 11/21/2024 10:52 AM EDT PSA, TOTAL WITH REFLEX TO PSA, FREE Routine 11/13/2024 3:04 PM EDT COMPREHENSIVE METABOLIC PANEL Routine 11/13/2024 3:04 PM EDT CBC WITH AUTO DIFFERENTIAL Routine 11/13/2024 3:04 PM EDT HM COLONOSCOPY Routine 02/29/2024 11:51 AM EST LIPID PANEL, STANDARD Routine 08/26/2021 10:14 AM EDT from Last 3 Months or Most Recently Relevant to Health Maintenance Results * US BLADDER (11/21/2024 10:52 AM EDT) Anatomical Region Laterality Modality Abdomen Ultrasound 11/21/2024 10:5 2 AM EDT Narrative 11/21/2024 10:54 AM EDT [address] [address] Ultrasound Report Signed Patient: Don Shah MR#: [id number] : 1950 Acct:[id number] Age/Sex: 74 / M ADM Date: 11/20/24 Loc: HO.US Attending Dr: Thad Scott MD Ordering Physician: Thad Scott MD Date of Service: 11/20/24 Procedure(s): US bladder Accession Number(s): [id number] cc: Thad Scott MD; Maureen Ortega MD Reason for Exam: N40.0 - Benign prostatic hyperplasia without lower urinary tract symptoms CLINICAL HISTORY: N40.0 - Benign prostatic hyperplasia without lower urinary tract symptoms --- Additional Notes or Special Instructions: please measure prostate Exam: Bladder ultrasound Comparison: US/MT - US RENAL BI - 05/01/24 09:39 EST US/MT - US BLADDER - 06/07/22 10:45 EDT Findings: Smoothly distended urinary bladder, no calculus, mass or apparent wall thickening, prevoid volume is 290 mL, incomplete emptying with postvoid residual volume 65 mL, ureteral jets are not visualized. Prostate is not well visualized, the inferior and posterior portion of the prostate is partially obscured by artifact, measures roughly 3.6 x 3.9 x 4.2 cm, 34 mL. Impression: Prominent postvoid bladder residual volume 65 mL. This document has been electronically signed by: Aissatou Ramos MD on 11/21/2024 10:52:36 Dictated By: Aissatou Ramos MD Signed By: <Electronically signed by Aissatou Ramos MD in OV> 11/21/24 1054 DD/ 1052 TD/TT: 11/21/24 1052 Patternmaker Wood: Procedure Note Donotuseinterpreter, Image - 11/21/2024 [place] [address] Ultrasound Report Signed Patient: Don Shah [facility]#: [id number] : 1950cct:[id number] Age/Sex: 74 / MADM Date: 11/20/24 Loc: HO.US Attending Dr: Thad Scott MD Ordering Physician: Thad Scott MD Date of Service: 11/20/24 Procedure(s): US bladder Accession Number(s): [id number] cc: Thad Scott MD; Maureen Ortega MD Reason for Exam: N40.0 - Benign prostatic hyperplasia without lowerurinary tract symptoms CLINICAL HISTORY: N40.0 - Benign prostatic hyperplasia without lowerurinary tract symptoms --- Additional Notes or Special Instructions: please measure prostate Exam: Bladder ultrasound Comparison: US/MT - US RENAL BI - 05/01/24 09:39 EST US/MT - US BLADDER - 06/07/22 10:45 EDT Findings: Smoothly distended urinary bladder, no calculus, mass or apparent wall thickening, prevoid volume is 290 mL, incomplete emptying with postvoid residual volume 65 mL, ureteral jets are not visualized. Prostate is not well visualized, the inferior and posterior portion of the prostate is partially obscured by artifact, measures roughly 3.6 x 3.9 x 4.2 cm, 34 mL. Impression: Prominent postvoid bladder residual volume 65 mL. This document has been electronically signed by: Aissatou Ramos MD on 11/21/2024 10:52:36 Dictated By: Aissatou Ramos MD Signed By: <Electronically signed by Aissatou Ramos MD in OV> 11/21/24 1054 DD/ 1052 TD/TT: 11/21/24 1052 Patternmaker Wood: us [facility] External Provider IMG US PROCEDURES Final Result * PSA, Total With Reflex to PSA, Free (11/13/2024 3:04 PM EDT) PSA,Total (Free>4and<10) 1.46 0.00 - 4.00 ng/mL [facility] Comment:A Free PSA was not [...] are between 4.0 and 10.0 ng/mL.PSA methodology: Zeligsoftnity i ChemiluminescentMicroparticle Immunoassay (CMIA) 11/13/2024 3:04 PM EDT 11/13/2024 3:04 PM EDT us Generic External Data Provider LAB BLOOD ORDERAB LES Final Result [facility] [address] [place] [address] [phone] * (ABNORMAL) CBC auto differential (11/13/2024 3:04 PM EDT) White Blood Count 6.5 4.8 - 10.8 X10*3/uL [facility] Red Blood Count 5.15 4.60 - 5.80 X10*6/uL [facility] Hemoglobin 15.8 14.0 - 18.0 g/dl [facility] Hematocrit 46.2 42.0 - 52.0 % [facility] Mean Corpuscular Volume 89.7 80.0 - 98.0 fL [facility] Mean Corpuscular Hemoglobin 30.7 27.0 - 33.0 pg [facility] Mean Corpuscular HGB Conc 34.2 31.0 - 36.0 g/dl [facility] Red Cell Distribution Width 12.2 11.0 - 16.0 % [facility] Platelet Count 119(L) 160 - 400 X10*3/uL [facility] Mean Platelet Volume 10.8 9.4 - 12.4 fL [facility] Neutrophils Percent Auto 59.7 45 - 73 % [facility] Imm Gran Pct Auto 0.2 0.0 - 0.4 % [facility] Lymphocytes Percent Auto 29.7 20 - 40 % [facility] Monocytes Percent Auto 7.6 2 - 11 % [facility] Eosinophils Percent Auto 2.5 0 - 4 % [facility] Basophils Percent Auto 0.3 0 - 2 % [facility] NRBC Pct Auto 0.0 0.0 - 0.2 /100WBC [facility] Neutrophils Absolute Auto 3.9 2.0 - 8.3 x10*3/uL [facility] Imm Gran Abs Auto 0.01 0.00 - 0.03 X10*3/uL [facility] Lymphocytes Absolute Auto 1.9 1.2 - 4.9 X10*3/uL [facility] Monocytes Absolute Auto 0.5 0.1 - 1.2 X10*3/uL [facility] Eosinophils Absolute Auto 0.2 0.0 - 0.4 X10*3/uL [facility] Basophils Absolute Auto 0.0 0.0 - 0.2 X10*3/uL [facility] NRBC Abs Auto 0.000 0.0 - 0.012 X10*3/uL [facility] 11/13/2024 3:04 PM EDT 11/13/2024 3:04 PM EDT us Generic External Data Provider LAB BLOOD ORDERAB LES Final Result [facility] [address] [place] [address] [phone] * (ABNORMAL) Comprehensive Metabolic Panel (11/13/2024 3:04 PM EDT) Sodium 144 135 - 145 mmol/L [facility] Potassium 4.5 3.3 - 5.1 mmol/L [facility] Chloride 106 96 - 108 mmol/L [facility] Carbon Dioxide 30(H) 22 - 29 mmol/L [facility] Anion Gap 13 12 - 20 [facility] Urea Nitrogen (BUN) 16 9 - 16 mg/dL [facility] Creatinine, Serum 0.75 0.5 - 1.4 mg/dL [facility] Estimated Glomerular Filt Rate >60 [facility] Comment:Chronic Kidney Disea se: Estimated GFR < 60 mL/min/1.76x7Fwfgdf Kidney Disease: Estimated GFR < 15 mL/min/1.73m2 Glucose 103 60 - 115 mg/dL [facility] Calcium 9.4 8.4 - 10.2 mg/dL [facility] Bilirubin, Total 0.5 0.0 - 1.0 mg/dL [facility] Aspartate Amino Transferase 45(H) 5 - 37 U/L [facility] Alanine Aminotransferase 49(H) 0 - 40 U/L [facility] Total Protein 8.0 6.5 - 8.0 g/dL [facility] Albumin Level 4.4 3.5 - 5.0 g/dL [facility] Alkaline Phosphatase 69 39 - 117 U/L [facility] 11/13/2024 3:04 PM EDT 11/13/2024 3:04 PM EDT us Generic External Data Provider LAB BLOOD ORDERAB LES Final Result [facility] [address] [place] [address] [phone] * Hm Colonoscopy (02/29/2024 11:51 AM [...] LDL-C. Jeronimo SANDHU et al. JAYNA. 2013;310(19): 5296-9910 (http://education.[employer] Web/faq/TLR779) Non-HDL Cholesterol 114 <130 mg/dL (calc) [facility] Comment: For patients with diabetes plus 1 major ASCVD risk factor, treating to a non-HDL-C goal of <100 mg/dL (LDL-C of <70 mg/dL) is considered a therapeutic option. Triglycerides 135 <150 mg/dL [facility] 08/26/2021 10:1 4 AM EDT us Cintia KOHLER LAB BLOOD ORDERABLES Final Resul t [facility] [address] from Last 3 Months or Most Recently Relevant to Health Maintenance Insurance [employer] [place] [employer] PPO Care Teams Master Esthetician Relationship Specialty Start Date End Date Cintia Ely ANP [address] [place] [address] PCP - General Family Medicine 04/30/21
--- OUTSIDE RECORDS SUMMARY | 2025-01-14 16:00 | XMS_ITS | Encounter Summary ---
Author Organization [employer] Address [address] [facility] [address] [place] [address] Care Team Providers Care Customer Engineer Name Role Phone Cintia Ely Primary Care Provider [phone] Encounter Details Date Type Department Care Team (Late st Contact Info) Description 05/17/2024 Orders Only [facility] [address] [place], [place] [phone] Provider, MD Leidy Social History Tobacco Use [...] documented as of this encounter Care Teams Customer Engineer Relationship Specialty Start Date End Date Cintia Ely ANP [address] [place] [address] PCP - General Family Medicine 04/30/21 documented as of this encounter
--- OUTSIDE RECORDS SUMMARY | 2025-01-14 16:00 | XMS_ITS | Encounter Summary ---
Author Organization [employer] Address [address] [facility] [address]t [place] [address] Care Team Providers Care Lead Die Molder Name Role Phone Cintia Ely Primary Care Provider [phone] Reason for Visit * Reason Onset Date Comments ER Follow-up 01/17/2023 Nurse Triage 01/17/2023 Encounter Details Date Type Department Care Team ([facility] st Contact Info) Description 01/17/2023 Telephone [facility] [address] [place] [address] Cintia Ely ANP [address] [place] [address] ER Follow-up; Nurse Triage Social History Tobacco [...] pt. He said that he went to [facility] ED on 01/13/23 because he was bleeding from his rectum. Provider checked pt. He stated to pt. That pt needed to go to a Hospital in [facility] for colon surgery.Pt. Was then transported to [facility] from 01/14/23 at 1am until 01/15/23 at noon. Provider gave pt. Something to control his bleeding from his rectum and The bleeding stopped. Provider in [facility] stated that pt. Did not need surgery anymore and discharged pt. Home. Pt. Has a scheduled colonoscopy for 02/15/23 at [facility] but wants sooner colonoscopy scheduled to see what is wrong with Colon. [phone]. Pt. Wants all notes in his chart for PCP from [facility] and from [facility]. Pt. Denies any rectal bleeding x 2 days but, does state that his stools are dark. Pt. Denies any stomachpain, cramping or bloating. No fever. States he feels fine. Pt. Wants a call from PCP nurse team when all his Hospital notes get put into his chart at [facility]. Pt. States he does not need a HDF appt. Because he is already being followed up by Gastro in [facility]. I will send this note to clinical animal care worker for green team and also to team nurses for fu with pt. When records get put into pt. Chart. Pt. Wants phone call from nurses when notes from [facility] ED and [facility] get put into pt. Chart. * Telephone Encounter - Izzy Villegas - 01/17/2023 10:47 AM EST Tc from pt calling to report ED visit on 01/13/2023 at [facility]. Seen for rectal bleeding. Patient advised will forward to team nurse for follow up. Symptom: Rectal Symptoms - Not Bleeding Outcome: Schedule an appointment to be seen within 3 days Reason: Caller denied all higher acuity questions Colonoscopy 02/15 The caller accepted this outcome Kinyarwanda Speaker documented in this encounter Plan of Treatment Not on file documented as of this encounter Visit Diagnoses Not on filedocumented in this encounter Care Teams Lead Die Molder Relationship Specialty Start Date End Date Cintia Ely ANP [address] [place] [address] PCP - General Family Medicine 04/30/21 documented as of this encounter
--- OUTSIDE RECORDS SUMMARY | 2025-01-14 16:00 | XMS_ITS | Encounter Summary ---
Author Organization [employer] [facility] Address [address] [place] [address] [address] [place] [address] Care Team Providers Care Bench Precision Assembler Name Role Phone Cintia Ely Primary Care Provider [phone] Encounter Details Date Type Department Care Team (Late st Contact Info) Description 02/26/2022 Orders Only [facility] [address] [place], [place] [phone] Radha Patton, JULIAN Social History Tobacco Use Types Packs/Day Years [...] on filedocumented in this encounter Care Teams Bench Precision Assembler Relationship Specialty Start Date End Date Cintia Ely ANP [address] [place], [place] [phone] PCP - General Family Medicine 04/30/21 documented as of this encounter
--- OUTSIDE RECORDS SUMMARY | 2025-01-14 16:00 | XMS_ITS | Encounter Summary ---
Author Organization [employer] Address [address] [facility] 7t [place] [address] Care Team Providers Care Manager Office Services Name Role Phone Cintia Ely Primary Care Provider Reason for Visit * Reason Comments Med Refill Encounter Details Date Type Department Care Team (Late st Contact Info) Description 11/28/2023 Refill [facility] [address] [place] [address] Cintia Ely ANP [address] [place] [address] Cerebrovascular accident (CVA), unspecified mechanism (CMS/HCC) Social [...] mechanism (CMS/HCC) (HCC) documented in this encounter Additional Health Concerns Assessment Noted Time PHQ-9 Depression Total Score: 0 07/22/19 24 1:07 PM EDT documented as of this encounter Care Teams Manager Office Services Relationship Specialty Start Date End Date Cintia Ely ANP [address] [place] [phone] PCP - General Family Medicine 04/30/21 documented as of this encounter
--- OUTSIDE RECORDS SUMMARY | 2025-01-14 16:00 | XMS_ITS | Encounter Summary ---
Author Organization [employer] Address [address] [facility] [address] [place] [address] Care Team Providers Care Emergency Communications Dispatcher Name Role Phone Cintia Ely Primary Care Provider [phone] Reason for Visit * Reason Comments Med Refill Encounter Details Date Type Department Care Team (Late st Contact Info) Description 06/28/2023 Refill [facility]INE [address] [place] [address] Cintia Ely ANP [address] [place] [address] Cerebrovascular accident (CVA), unspecified mechanism (CMS/HCC) Social [...] (HCC) documented in this encounter Care Teams Emergency Communications Dispatcher Relationship Specialty Start Date End Date Cintia Ely ANP [address] [place] [address] PCP - General Family Medicine 04/30/21 documented as of this encounter
== END 2025-01-14 13:50 | disposition home or self-care (01) ==
LOC: HO.HUSH 12:38
PROVIDERS: PCP Family Medicine; Visit Provider Urology
DX: Z12.5 Encounter for screening for malignant neoplasm of prostate (principal); N20.0 Calculus of kidney
CPT/HCPCS: 99214

== ENCOUNTER → 2025-01-14 12:38 | Outpatient (BNVA) | payer MEDICARE, SELFPAY | PROVIDERS: PCP Family Medicine; Visit Provider Urology | DX: N20.0 Calculus of kidney (principal); N32.81 Overactive bladder; Z12.5 Encounter for screening for malignant neoplasm of prostate | CPT/HCPCS: 81003; 99212 ==